=== PATIENT | male | born 1965 | race Caucasian/White ===

== ENCOUNTER 2018-07-13 23:52 | Inpatient (IN) | payer MEDICAID ==
--- NOTE | 2018-07-14 00:11 | ED Physician Chart ---
ED Chief Complaint/HPI - Patient Information Date Seen:: 07/14/18 Time Seen:: 23:50 Chief Complaint:: shortness of breath History of Present Illness:: Patient's been short of breath for 2 weeks gradually increasing in severity. He was diaphoretic 2 nights ago and thinks he had a fever. He has a cough with minimal sputum production. He gets pleuritic chest pain only when he is exposed to cigarette smoke. 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) Review:: Nurse's Note Reviewed ED Review of Systems - Review of Systems General/Constitutional: Fever Skin: Skin lesions Head: No headache Eyes: No loss of vision ENT: No earache Neck: No neck pain Cardio Vascular: other (pleuritic chest pain) Pulmonary: SOB, Cough GI: No nausea, No vomiting, No diarrhea G/U: No dysuria Musculoskeletal: No bone or joint pain Endocrine: No polyuria, No polydipsia Psychiatric: No prior psych history Hematopoietic: No bruising, No lymphadenopathy Allergic/Immuno: No urticaria Neurological: No syncope ED Past Medical History - Past Medical History Past Medical History: HTN Family History: None Social History: Non Smoker, Other Employment:: No current alcohol consumption Surgical History: None Psychiatricy History: None Family Medical History - Family Member Mother History Unknown: Yes ED Physical Exam - Physical Examination General/Constitutional: Awake, Well-developed, well-nourished, Alert Other Gen/Cons comments:: Moderate respiratory distress Head: Atraumatic Eyes: Lids, conjuctiva normal Skin: Nl inspection, No rash ENMT: External ears, nose nl, Oropharynx nl Neck: No nuchal rigidity Respiratory: Clear to Auscultation, No Wheeze/Rhonchi/Rales Other Respiratory comments:: tachypneic Other Cardio Vascular comments:: Irregular rapid rhythm GI: No tenderness/rebounding/guarding Other GI comments:: Abdomen protuberant Other Extremities comments:: 4 lower extremity edema Neuro/Psych: No focal deficits ED Labs/Radiology/EKG Results - Lab Results Results: Laboratory Results WBC 22.5 Th/cmm (4.8-10.8) H* 07/14/18 00:20 RBC 4.84 Mil/cmm (4.30-5.70) 07/14/18 00:20 Hgb 12.2 gm/dL (12-16) 07/14/18 00:20 Hct 38.2 % (41.0-60) L 07/14/18 00:20 MCV 79.0 fl (80-99) L 07/14/18 00:20 MCH 25.2 pg (26.0-30.0) L 07/14/18 00:20 MCHC Differential 31.9 pg (28.0-36.0) 07/14/18 00:20 RDW 16.0 % (11.5-20.0) 07/14/18 00:20 Plt Count 511 Th/cmm (150-400) H 07/14/18 00:20 MPV 7.8 fl 07/14/18 00:20 Add Manual Diff YES 07/14/18 00:20 Band Neutrophils % 0 % (0-10) 07/14/18 00:20 Neutrophils (Manual) 90 % (40-80) H 07/14/18 00:20 Lymphocytes 4 % (20-50) L 07/14/18 00:20 Monocytes 5 % (2-10) 07/14/18 00:20 Eosinophils 1 % (0-5) 07/14/18 00:20 Basophils 0 % (0-3) 07/14/18 00:20 Sodium 137 mEq/L (136-145) 07/14/18 00:20 Potassium 3.8 mEq/L (3.5-5.1) 07/14/18 00:20 Chloride 105 mEq/L (98-107) 07/14/18 00:20 Carbon Dioxide 17.6 mEq/L (21.0-31.0) L 07/14/18 00:20 Anion Gap 18.2 (7.0-16.0) H 07/14/18 00:20 BUN 31 mg/dL (7-25) H 07/14/18 00:20 Creatinine 1.5 mg/dL (0.7-1.3) H 07/14/18 00:20 Est GFR ( Amer) > 60.0 ml/min (>90) 07/14/18 00:20 Est GFR (Non-Af Amer) 52.0 ml/min 07/14/18 00:20 BUN/Creatinine Ratio 20.7 07/14/18 00:20 Glucose 112 mg/dL (70-105) H 07/14/18 00:20 Whole Bld Lactic Acid 2.94 mmol/L (0.60-1.99) H* 07/14/18 00:20 Calcium 8.3 mg/dL (8.6-10.3) L 07/14/18 00:20 Total Bilirubin 0.8 mg/dL (0.3-1.0) 07/14/18 00:20 AST 53 U/L (13-39) H 07/14/18 00:20 ALT 62 U/L (7-52) H 07/14/18 00:20 Alkaline Phosphatase 92 U/L (34-104) 07/14/18 00:20 Troponin I 0.17 ng/mL (0.01-0.05) H* 07/14/18 00:20 B-Natriuretic Peptide 726.0 pg/mL (5.0-100.0) H 07/14/18 00:20 Total Protein 6.4 gm/dL (6.0-8.3) 07/14/18 00:20 Albumin 3.5 gm/dL (4.2-5.5) L 07/14/18 00:20 Globulin 2.9 gm/dL 07/14/18 00:20 Albumin/Globulin Ratio 1.2 (1.0-1.8) 07/14/18 00:20 - Radiology Results Results: Chest x-ray shows cardiomegaly and pulmonary congestion. - EKG Interpretations Rate & Rhythm: atrial fibrillation with a rate of 180 [place]: left axis deviation Comments:: Anterior septal infarct age uncertain. ED Assessment - Assessment General Assessment: At 0144 patient's heart rate was about 150. Patient has congestive heart failure with atrial fibrillation and rapid ventricular response. I spoke to Temi. Patient be admitted to ICU. Patient has a troponin of 0.17 which may be the result of some ischemia to the heart from his extremely rapid heart rate. ED Septic Shock - . Is Septic Shock (SBP<90, OR Lactate>4 mmol\L) present?: No ED Reassessment (Disposition) - Reassessment Reassessment Condition:: Improved - Diagnosis Diagnosis:: Atrial fibrillation with rapid ventricular response; congestive heart failure; pulmonary edema; severe peripheral edema - Patient Disposition Admitted to:: ICU Admitting Medical Physician:: Boby Scruggs
[2018-07-14] MEDS ORDERED: Diltiazem 5 mg/mL 5mL Vial IVP STA ×2 (00:19→01:04)
[2018-07-14 00:30] LABS: HEMATOCRIT 38.2 % (41.0-60); HEMOGLOBIN 12.2 gm/dL (12-16); MEAN CORPUSCULAR HEMOGLOBIN 25.2 pg (26.0-30.0); MEAN CORPUSCULAR HGB CONC 31.9 pg (28.0-36.0); MEAN PLATELET VOLUME 7.8 fl; PLATELET COUNT 511 Th/cmm (150-400); RED BLOOD COUNT 4.84 Mil/cmm (4.30-5.70)
[2018-07-14] MEDS ORDERED: Diltiazem 5 mg/mL 5mL Vial IVP ONE ×2 (00:31→01:07)
[2018-07-14 00:33] LABS: WHITE BLOOD COUNT 22.5 Th/cmm (4.8-10.8)
[2018-07-14 00:44] LABS: ALB/GLOB RATIO 1.2 (1.0-1.8); ALBUMIN 3.5 gm/dL (4.2-5.5); ALKALINE PHOSPHATASE 92 U/L (34-104); ANION GAP 18.2 (7.0-16.0); BILIRUBIN,TOTAL 0.8 mg/dL (0.3-1.0); BUN - UREA NITROGEN 31 mg/dL (7-25); CALCIUM SERUM 8.3 mg/dL (8.6-10.3); CARBON DIOXIDE 17.6 mEq/L (21.0-31.0); CHLORIDE 105 mEq/L (98-107); CREATININE - SERUM 1.5 mg/dL (0.7-1.3); GFR AFRICAN-AMERICAN > 60.0 ml/min (>90); GLUCOSE 112 mg/dL (70-105); POTASSIUM SERUM 3.8 mEq/L (3.5-5.1); SGOT 53 U/L (13-39); SGPT/ALT 62 U/L (7-52); SODIUM SERUM 137 mEq/L (136-145); TOTAL PROTEIN,SERUM 6.4 gm/dL (6.0-8.3)
[2018-07-14 01:04] LABS: BAND NEUTROPHILE 0 % (0-10); BASOPHIL 0 % (0-3); EOSINOPHIL 1 % (0-5); LYMPHOCYTE 4 % (20-50); MONOCYTE 5 % (2-10); NEUTROPHILS 90 % (40-80)
[2018-07-14] MEDS ORDERED: Diltiazem 5 mg/mL 25mL Vial IV ONE (02:43)
[2018-07-14] MEDS ORDERED: Diltiazem 5 mg/mL 5mL Vial IVP PRN (03:56)
[2018-07-14] MEDS ORDERED: guaiFENesin 200 MG/10 ML UDC PO PRN (03:56)
[2018-07-14] MEDS ORDERED: Sodium Chloride 0.9% 1,000 ML IV SCH (03:56)
[2018-07-14] MEDS: Ipratropium Neb 0.5 mg/2.5 mL UD IH SCH ×2 (07:44→10:53)
[2018-07-14] MEDS ORDERED: Ipratropium Neb 0.5 mg/2.5 mL UD HHN ONE ×2 (07:44→10:54)
--- NOTE | 2018-07-14 09:03 | Diagnostic Imaging Report ---
Exam: Portable chest x-ray HISTORY: Shortness of breath Findings: Portable upright examination of chest at 0030 hours reviewed, no prior studies available comparison. The study demonstrates cardiomegaly superimposed congestive heart failure. There is evidence for right lower lobe infiltrate and effusion. Left costophrenic angles is not seen. Bony thorax intact. IMPRESSION: Cardiomegaly congestive heart failure Right lobe pneumonia and effusion. Follow-up exam is recommended.
[2018-07-14] MEDS ORDERED: Morphine Sulfate 2 mg/mL 1mL Syr IVP PRN (09:52)
[2018-07-14] MEDS ORDERED: methylPREDNISolone SS 40 mg Vial IVP SCH (10:00)
[2018-07-14] MEDS ORDERED: Morphine Sulfate 2 mg/mL 1mL Syr ONE (10:03)
[2018-07-14 10:04] LABS: CHOLESTEROL 61 mg/dL (<200); HDL -HIGH DENSITY LIPOPROTEIN 22 mg/dL (23-92); TRIGLYCERIDES 48 mg/dL (<150)
[2018-07-14] MEDS ORDERED: Enoxaparin 40 mg/0.4 mL 0.4mL Syr SUBQ ONE (10:07)
[2018-07-14] MEDS ORDERED: methylPREDNISolone SS 40 mg Vial ONE (10:07)
[2018-07-14] MEDS ORDERED: Piperacillin Sodium/Tazobact 3.375 gm Vial IV ONE (10:08)
--- NOTE | 2018-07-14 10:13 | History & Physical ---
ADMIT DATE: 07/14/2018 DICTATED FOR: Dr. Boby Scruggs. CHIEF COMPLAINT: Shortness of breath and bilateral lower extremity edema. HISTORY OF PRESENT ILLNESS: This is a 52-year-old male, who has a 2-week history of shortness of breath associated with bilateral lower extremity worsening edema associated with open wounds. The patient also states that his shortness of breath was so bad that his chest started to hurt. In the ER, the patient was noted with elevated lactic acid, sepsis protocol was initiated. Also, in the ER, the patient had an EKG and it showed AFib with rapid ventricular response at 181. The patient was started on Cardizem drip in the ER. Upon examining the patient in the ER, the patient is awake, alert, short of breath, complains of off and on chest pain. PAST MEDICAL HISTORY: Hypertension. FAMILY HISTORY: Noncontributory. SOCIAL HISTORY: The patient denies any alcohol, illicit drug usage or any tobacco smoking. SURGICAL HISTORY: None per patient. HOME MEDICATIONS: See medication list. REVIEW OF SYSTEMS: GENERAL: The patient complains of weakness. CARDIOVASCULAR: Complains of chest pain. RESPIRATORY: Complains of shortness of breath and dry cough. GASTROINTESTINAL: Denies any nausea, vomiting, abdominal pain. GENITOURINARY: Denies any dysuria. MUSCULOSKELETAL: Denies any joint pain. SKIN: The patient complains of open wounds. All other systems are reviewed and are negative. PHYSICAL EXAMINATION: GENERAL: The patient is morbidly obese, awake, alert, in mild distress. VITAL SIGNS: Temperature 100.3, heart rate of 137, blood pressure 183/107, respirations 20, O2 95%. HEAD: Normocephalic, atraumatic. NECK: Supple. No mass. LUNGS: Rales with rhonchi bilaterally. HEART: No murmurs. No gallops. SKIN: The patient's bilateral lower extremity noted with redness and +4 pitting edema with fluid seeping, also noted with multiple open ulcers. ABDOMEN: Soft, nontender, nondistended. LABORATORY DATA: WBC 22.5, H and H 38.2 and 79.0, platelet of 511. Sodium 137, potassium 3.8, chloride 105, BUN 31, creatinine 1.5, whole lactic acid of 2.01. Troponin 0.17. Albumin at 3.5. DIAGNOSTICS: The patient had a chest x-ray done, impression is right lobe pneumonia and effusion, cardiomegaly, CHF. ASSESSMENT: Bilateral lower extremity edema; sepsis secondary from above; right lower lobe pneumonia; new onset congestive heart failure; acute renal insufficiency; morbid obese; elevated troponin; acute chest pain, rule out acute coronary syndrome; moderate protein-calorie malnutrition; hypertension; atrial fibrillation with rapid ventricular response. PLAN: The patient to be admitted to the ICU unit. We will get cardiology and superintendent nonselling as a consult. We will get a bilateral lower extremity ultrasound done. We will send wound for cultures. We will also consult wound care. We will treat the patient with IV vancomycin and Zosyn. We will do DVT prophylaxis as well as GI. We will start the patient on Lasix 40 mg IV push b.i.d. with supplementation of potassium 20 mEq b.i.d., respiratory treatments. We will keep the patient on cardiac diet. We will monitor the patient's I's and O's daily. We will also do daily weights as well. We will get followup labs for tomorrow morning. We will continue to follow this patient. JOB# [id number]
[2018-07-14] MEDS: Enoxaparin 40 mg/0.4 mL 0.4mL Syr SUBQ SCH ×2 (10:16→20:30)
[2018-07-14] MEDS ORDERED: Potassium Chloride 20 mEq ER Tab PO ONE (10:26)
[2018-07-14] MEDS ORDERED: Ipratropium Neb 0.5 mg/2.5 mL UD HHN SCH (10:56)
[2018-07-14] MEDS ORDERED: Mag Sulfate 2gm/50mL Premix 2 GM/50 ML BAG IV ONE (14:17)
--- NOTE | 2018-07-14 14:34 | General Progress Note ---
Subjective - Review of Systems Service Date: 07/14/18 Subjective: Patient has less shortness of breath still complaining of swelling both lower extremities and open wound on the right leg Objective - Results Result Diagrams: 07/14/18 00:20 07/14/18 00:20 Recent Labs: Laboratory Last Values WBC 22.5 Th/cmm (4.8-10.8) H* 07/14/18 00:20 RBC 4.84 Mil/cmm (4.30-5.70) 07/14/18 00:20 Hgb 12.2 gm/dL (12-16) 07/14/18 00:20 Hct 38.2 % (41.0-60) L 07/14/18 00:20 MCV 79.0 fl (80-99) L 07/14/18 00:20 MCH 25.2 pg (26.0-30.0) L 07/14/18 00:20 MCHC Differential 31.9 pg (28.0-36.0) 07/14/18 00:20 RDW 16.0 % (11.5-20.0) 07/14/18 00:20 Plt Count 511 Th/cmm (150-400) H 07/14/18 00:20 MPV 7.8 fl 07/14/18 00:20 Add Manual Diff YES 07/14/18 00:20 Band Neutrophils % 0 % (0-10) 07/14/18 00:20 Neutrophils (Manual) 90 % (40-80) H 07/14/18 00:20 Lymphocytes 4 % (20-50) L 07/14/18 00:20 Monocytes 5 % (2-10) 07/14/18 00:20 Eosinophils 1 % (0-5) 07/14/18 00:20 Basophils 0 % (0-3) 07/14/18 00:20 Sodium 137 mEq/L (136-145) 07/14/18 00:20 Potassium 3.8 mEq/L (3.5-5.1) 07/14/18 00:20 Chloride 105 mEq/L (98-107) 07/14/18 00:20 Carbon Dioxide 17.6 mEq/L (21.0-31.0) L 07/14/18 00:20 Anion Gap 18.2 (7.0-16.0) H 07/14/18 00:20 BUN 31 mg/dL (7-25) H 07/14/18 00:20 Creatinine 1.5 mg/dL (0.7-1.3) H 07/14/18 00:20 Est GFR ( Amer) > 60.0 ml/min (>90) 07/14/18 00:20 Est GFR (Non-Af Amer) 52.0 ml/min 07/14/18 00:20 BUN/Creatinine Ratio 20.7 07/14/18 00:20 Glucose 112 mg/dL (70-105) H 07/14/18 00:20 Whole Bld Lactic Acid 2.01 mmol/L (0.60-1.99) H* 07/14/18 03:30 Calcium 8.3 mg/dL (8.6-10.3) L 07/14/18 00:20 Total Bilirubin 0.8 mg/dL (0.3-1.0) 07/14/18 00:20 AST 53 U/L (13-39) H 07/14/18 00:20 ALT 62 U/L (7-52) H 07/14/18 00:20 Alkaline Phosphatase 92 U/L (34-104) 07/14/18 00:20 Troponin I 0.17 ng/mL (0.01-0.05) H* 07/14/18 00:20 B-Natriuretic Peptide 726.0 pg/mL (5.0-100.0) H 07/14/18 00:20 Total Protein 6.4 gm/dL (6.0-8.3) 07/14/18 00:20 Albumin 3.5 gm/dL (4.2-5.5) L 07/14/18 00:20 Globulin 2.9 gm/dL 07/14/18 00:20 Albumin/Globulin Ratio 1.2 (1.0-1.8) 07/14/18 00:20 Triglycerides 48 mg/dL (<150) 07/14/18 00:20 Cholesterol 61 mg/dL (<200) 07/14/18 00:20 LDL Cholesterol Direct 36 mg/dL (75-193) L 07/14/18 00:20 HDL Cholesterol 22 mg/dL (23-92) L 07/14/18 00:20 - Physical Exam Vitals and I&O: Vital Signs Temp 98.9 F 07/14/18 12:48 Pulse 113 07/14/18 12:48 Resp 20 07/14/18 12:48 BP 146/80 07/14/18 12:48 Pulse Ox 96 07/14/18 12:48 Intake & Output 07/13/18 07/14/18 07/14/18 18:59 06:59 18:59 Intake Total 250 Output Total 1575 Balance -1325 Weight (lbs) 181.437 kg 181.437 kg Intake: Oral 250 Tube Feeding 0 TPN/PPN 0 Blood Product 0 Lipid 0 Albumin 0 Other 0 Output: Gastric Drainage 0 Urine 1575 Stool 0 Urine/Stool Mix 0 Emesis 0 Hemodialysis 0 Other 0 Other: # Voids 4 # Bowel Movements 0 Weight Source Patient stated Patient stated Active Medications: Current Medications Acetaminophen (Tylenol) 650 mg PO Q4HR PRN PRN Reason: Pain Or Fever above 101 Stop: 09/12/18 03:55 Carvedilol (Coreg) 25 mg PO BID [facility] Stop: 09/12/18 16:59 Diltiazem HCl (Cardizem) 20 mg IVP Q4H PRN PRN Reason: HR Greater than 130 per min Stop: 09/12/18 03:55 Diltiazem HCl (Cardizem) 60 mg PO Q6HR [facility] Stop: 09/12/18 17:59 Enoxaparin Sodium (Lovenox) 40 mg SUBQ Q12HR [facility] Stop: 09/12/18 08:59 Last Admin: 07/14/18 10:16 Dose: 40 mg Furosemide (Lasix) 40 mg IVP BID [facility] Stop: 09/12/18 08:59 Guaifenesin (Robitussin) 100 mg PO Q4H PRN PRN Reason: Cough or Congestion Stop: 09/12/18 03:55 Diltiazem HCl 125 mg/ Dextrose 125 mls @ 10 mls/hr IV TITR [facility]; Protocol Stop: 09/12/18 02:44 Last Admin: 07/14/18 02:49 Dose: 10 mg/hr, 10 mls/hr Piperacillin Sod/Tazobactam (Sod 3.375 gm/ Sodium Chloride) 50 mls @ 100 mls/ hr IV Q6HR [facility] Stop: 09/12/18 17:59 Vancomycin HCl 2 gm/ Sodium (Chloride) 500 mls @ 250 mls/hr IV Q12HR@0800,2000 [facility] Stop: 09/12/18 19:59 Ipratropium [place] (Atrovent Neb 0.5mg/2.5ml) 0.5 mg HHN QIDRT [facility] Stop: 09/12/18 10:55 Methylprednisolone Sodium Succinate (Solu-Medrol) 40 mg IVP Q8H [facility] Stop: 09/12/18 09:59 Last Admin: 07/14/18 10:13 Dose: 40 mg Miscellaneous (Vancomycin Iv Per Pharmacy) 1 ea MC PRN [facility] Stop: 09/12/18 03:55 Morphine Sulfate (Morphine) 2 mg IVP Q6H PRN PRN Reason: Severe Pain Stop: 09/12/18 09:51 Ondansetron HCl (Zofran) 4 mg IV Q8H PRN PRN Reason: Nausea / Vomiting Stop: 09/12/18 03:55 Pantoprazole Sodium (Protonix) 40 mg IVP DAILY [facility] Stop: 09/12/18 10:30 Last Admin: 07/14/18 10:32 Dose: 40 mg Potassium Chloride (Klor-Con) 20 meq PO BID [facility] Stop: 09/12/18 10:28 Zolpidem Tartrate (Ambien) 10 mg PO HS PRN PRN Reason: Insomnia Stop: 09/12/18 03:55 General: Alert, Mild distress HEENT: Mucous membr. moist/pink Neck: Supple, JVD, +2 carotid pulse wo bruit (10 cm upper sternal angle) Cardiovascular: Regular rate, Systolic murmurs, Other (uncontrolled atrial fibrillation) Abdomen: Bowel sounds, Soft, Obese Neurological: Normal gait, Strength at 5/5 X4 ext, Normal tone, Cranial nerves 3 -12 NL, Reflexes 2+ Skin: Breakdown (both legs) Assessment/Plan - Assessment Assessment: Right lower lobe pneumonia Congestive heart failure diastolic dysfunction and acute Cellulitis right leg Pleural effusion C kidney disease stage III Lactic acidosis Uncontrolled atrial fibrillation Hypertension Protein calorie malnutrition Morbid obesity Lactic acidosis - Plan Plan: Start IV Lasix IV antibiotics fluid restriction echocardiogram
[2018-07-14] MEDS: Ipratropium Neb 0.5 mg/2.5 mL UD HHN SCH ×2 (15:30→18:56)
[2018-07-14] MEDS ORDERED: Pneumococcal Vaccine 0.5 mL Vial IM ONE (15:39)
[2018-07-14] MEDS: Potassium Chloride 20 mEq ER Tab PO SCH ×2 (16:05→17:27)
[2018-07-14] MEDS ORDERED: Potassium Chloride 20 mEq ER Tab PO SCH (17:00)
[2018-07-14] MEDS: Diltiazem 30 mg Tab PO SCH (17:27)
[2018-07-14] MEDS: methylPREDNISolone SS 40 mg Vial IVP SCH (17:27)
[2018-07-14] MEDS ORDERED: Albumin 25% 12.5gm/50mL 12.5 GM/50 ML BTL IV ONE (23:30)
[2018-07-15] MEDS: Diltiazem 30 mg Tab PO SCH ×3 (00:33→13:01)
--- NOTE | 2018-07-15 02:46 | Consultation ---
DATE OF CONSULTATION: 07/14/[address] Scruggs. HISTORY AND PHYSICAL: This is a 52-year-old morbidly obese male patient, who has been complaining of swelling in both lower extremities, which gradually increased over a period of 2 weeks. According to the patient, he was admitted 6 months ago at [facility] for similar problem. The patient was discharged. Following this, the patient has a poor compliance with medication, diet and hence the swelling resumed and the patient came to the Emergency Room with patient complaining of shortness of breath. The patient also had a blister in the right leg, which he broke. Following this, there is redness in the right lower extremity. The patient's chest x-ray showed pneumonia and the patient had atrial fibrillation with rapid ventricular response. PAST MEDICAL HISTORY: Congestive heart failure, poor compliance, hypertension, atrial fibrillation, morbid obesity. FAMILY HISTORY: Unremarkable. SOCIAL HISTORY: No history of smoking, alcohol abuse according to the patient. ALLERGIES: None. PHYSICAL EXAMINATION: VITAL SIGNS: Blood pressure 130/80; pulse 180, irregular; respirations 28. HEAD: Normocephalic. No lumps or bumps. EYES: Pupils equal, reactive to light. Fundi show AV nicking, sclerae white, conjunctivae pink. NECK: Carotid 2+. Normal upstroke. JVD 10 cm above sternal angle. Thyroid not palpable. Lymph nodes not palpable. CHEST: Shows increased AP diameter. No kyphosis or scoliosis. LUNGS: Bilateral rales. Decreased breath sounds in both the bases. HEART: PMI sixth intercostal space with lateral to midclavicular line. S1 irregular. S2, S3, S4. Soft systolic murmur. ABDOMEN: Soft, hepatojugular reflux positive. Morbid obesity. NEUROLOGIC: Unremarkable. EXTREMITIES: Bilateral pedal edema 3+ with open wound in the right lower extremity with cellulitis. Peripheral pulses difficult to palpate. CLINICAL IMPRESSION: Right lower lobe pneumonia, pleural effusion, congestive heart failure, diastolic dysfunction, acute cellulitis of the right leg, chronic kidney disease stage 3, lactic acidosis, atrial fibrillation with rapid ventricular response, hypertension, protein-calorie malnutrition, morbid obesity. PLAN: The patient to continue present medication, Lasix, IV antibiotics. Echocardiogram. Monitor the patient closely on telemetry bed. Also give Cardizem IV push and get echocardiogram. JOB# [id number]
[2018-07-15] MEDS: methylPREDNISolone SS 40 mg Vial IVP SCH ×2 (04:06→15:33)
[2018-07-15 06:59] LABS: HEMATOCRIT 34.2 % (41.0-60); HEMOGLOBIN 10.9 gm/dL (12-16); MEAN CELL VOLUME 78.6 fl (80-99); MEAN CORPUSCULAR HEMOGLOBIN 25.1 pg (26.0-30.0); MEAN PLATELET VOLUME 7.8 fl; PLATELET COUNT 309 Th/cmm (150-400); RED BLOOD COUNT 4.35 Mil/cmm (4.30-5.70); RED CELL DISTRIBUTION WIDTH 15.4 % (11.5-20.0)
[2018-07-15 07:12] LABS: WHITE BLOOD COUNT 16.9 Th/cmm (4.8-10.8)
[2018-07-15] MEDS: Ipratropium Neb 0.5 mg/2.5 mL UD HHN SCH ×4 (07:20→18:28)
[2018-07-15 07:22] LABS: ANION GAP 15.1 (7.0-16.0); CALCIUM SERUM 8.2 mg/dL (8.6-10.3); CARBON DIOXIDE 19.1 mEq/L (21.0-31.0); CREATININE - SERUM 1.8 mg/dL (0.7-1.3); GFR NON AFRICAN-AMERICAN 42.2 ml/min; MAGNESIUM 2.2 mg/dL (1.9-2.7); POTASSIUM SERUM 4.2 mEq/L (3.5-5.1)
--- NOTE | 2018-07-15 07:24 | Consultation ---
DATE OF CONSULTATION: 07/14/2018 REFERRING PHYSICIAN: Dr. Scruggs Thank you very much for this consultation. HISTORY OF PRESENT ILLNESS: This is a 52-year-old male with history of CHF, presents with increased swelling in lower extremities. 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 He was treated recently and improved with fluids. Again, he was admitted for treatment and management with Lasix, started on regular Lasix drainage. The patient denies any history of lung problems. He is a nonsmoker, denies alcohol drinking. REVIEW OF SYSTEMS: GENERAL: Some weakness and fatigue. CARDIOVASCULAR: No chest pain or palpitation. RESPIRATORY: Shortness of breath. GASTROINTESTINAL: No nausea, no vomiting. PHYSICAL EXAMINATION: GENERAL: He is awake, alert, not in acute distress. VITAL SIGNS: Temperature 98.9, pulse 102, respirations 20, blood pressure 146/80, saturation 96%. HEENT: Atraumatic and normocephalic. Pupils are equal and reactive to light and accommodation. Ears, nose and throat are normal. NECK: Supple, no JVD. CHEST: There are decreased breath sounds at bases, fair air entry. HEART: Regular rate and rhythm. ABDOMEN: Soft. EXTREMITIES: Lower extremities 3+ edema with erythema of the lower extremities. LABORATORY AND DIAGNOSTIC DATA: WBC 22.5, hematocrit 38.2, platelets is 511. , potassium 3.8, BUN is 31, creatinine 1.5. IMPRESSION: This is a 52-year-old male with: 1. Congestive heart failure exacerbation 2. Lower extremities edema. 3. Lower extremity cellulitis. 4. Possible obstructive sleep apnea syndrome. PLAN: 1. Continue nebulizer treatment. 2. Decreased steroids. 3. Light diuresis. 4. Renal evaluation at one point. 5. Antibiotics. Thank you very much for this consultation. I will follow the patient with you. JOB# [id number] JAISON
[2018-07-15] MEDS: Enoxaparin 40 mg/0.4 mL 0.4mL Syr SUBQ SCH ×2 (08:39→21:10)
[2018-07-15] MEDS: Potassium Chloride 20 mEq ER Tab PO SCH ×2 (08:41→16:51)
--- NOTE | 2018-07-15 09:39 | Diagnostic Imaging Report ---
Portable chest x-ray HISTORY: Shortness of breath Compared with the prior exam of July 14, 2018, persistent marked cardiomegaly. There is evidence of a small right pleural effusion. A degree of congestive heart failure cannot be excluded. A small crescent shaped air density is noted below the right hemidiaphragm. This may represent partial visualization of adjacent bowel. Free intraperitoneal air cannot be definitely excluded. Clinical correlation is needed. An abdominal radiographic series or CT scan would provide additional assessment if needed. IMPRESSION: 1. Small crescent shaped air density projecting below the right hemidiaphragm. This may represent partial visualization of bowel. However, free intraperitoneal air cannot be deftly excluded. Clinical correlation is needed. An abdominal radiographic series or CT scan would provide additional assessment if needed. 2. Persistent cardiomegaly with a small right pleural effusion changes consistent with a degree of congestive heart failure. Abnormal findings were communicated to the radiology Department (Jimenez) 07/15/2018 (9:40 AM)
--- NOTE | 2018-07-15 09:58 | Diagnostic Imaging Report ---
Bilateral lower extremity Doppler venous ultrasound exam HISTORY: Pain, swelling Sonographic sector images obtained through the deep venous systems of both legs. Associated Doppler data was obtained. The exam the right leg demonstrates patency of the common femoral, superficial femoral, popliteal and posterior tibial veins. No thrombus. Normal compressibility and augmentation responses. The left leg demonstrates patency of the common femoral along with the proximal and mid portions of the superficial femoral vein. The distal portion of the left superficial femoral vein cannot be well visualized. There is patency of the left popliteal and posterior tibial veins. Normal compressibility and augmentation responses within the visualized veins. IMPRESSION: 1. Nonvisualization of the distal portion of the left superficial femoral vein. 2. Patency of the remainder of the deep venous systems of both legs.
[2018-07-15 10:35] LABS: BAND NEUTROPHILE 7 % (0-10); BASOPHIL 0 % (0-3); EOSINOPHIL 0 % (0-5); LYMPHOCYTE 3 % (20-50); MONOCYTE 3 % (2-10); NEUTROPHILS 87 % (40-80)
--- NOTE | 2018-07-15 16:12 | Internal Medicine Prog Note ---
Internal Medicine Subjective - Subjective Service Date: 07/15/18 (patient seen and examined. Awake, alert, frustrated c/o bilateral leg pain. bilateral lower extremity fluid seeping. explained to patient current plan of care and treatment understands and verbalized ) Patient seen and examined:: with staff Patient is:: awake, verbal Patient Complaints of:: other (ble pain) Per staff patient has:: tolerating meds Internal Medicine Objective - Results Result Diagrams: 07/15/18 06:35 07/15/18 06:35 Recent Labs: Laboratory Last Values WBC 16.9 Th/cmm (4.8-10.8) H 07/15/18 06:35 RBC 4.35 Mil/cmm (4.30-5.70) 07/15/18 06:35 Hgb 10.9 gm/dL (12-16) L 07/15/18 06:35 Hct 34.2 % (41.0-60) L 07/15/18 06:35 MCV 78.6 fl (80-99) L 07/15/18 06:35 MCH 25.1 pg (26.0-30.0) L 07/15/18 06:35 MCHC Differential 32.0 pg (28.0-36.0) 07/15/18 06:35 RDW 15.4 % (11.5-20.0) 07/15/18 06:35 Plt Count 309 Th/cmm (150-400) 07/15/18 06:35 MPV 7.8 fl 07/15/18 06:35 Add Manual Diff YES 07/15/18 06:35 Band Neutrophils % 7 % (0-10) 07/15/18 06:35 Neutrophils (Manual) 87 % (40-80) H 07/15/18 06:35 Lymphocytes 3 % (20-50) L 07/15/18 06:35 Monocytes 3 % (2-10) 07/15/18 06:35 Eosinophils 0 % (0-5) 07/15/18 06:35 Basophils 0 % (0-3) 07/15/18 06:35 Sodium 136 mEq/L (136-145) 07/15/18 06:35 Potassium 4.2 mEq/L (3.5-5.1) 07/15/18 06:35 Chloride 106 mEq/L (98-107) 07/15/18 06:35 Carbon Dioxide 19.1 mEq/L (21.0-31.0) L 07/15/18 06:35 Anion Gap 15.1 (7.0-16.0) 07/15/18 06:35 BUN 36 mg/dL (7-25) H 07/15/18 06:35 Creatinine 1.8 mg/dL (0.7-1.3) H 07/15/18 06:35 Est GFR ( Amer) 51.0 ml/min (>90) 07/15/18 06:35 Est GFR (Non-Af Amer) 42.2 ml/min 07/15/18 06:35 BUN/Creatinine Ratio 20.0 07/15/18 06:35 Glucose 150 mg/dL (70-105) H 07/15/18 06:35 Whole Bld Lactic Acid 2.01 mmol/L (0.60-1.99) H* 07/14/18 03:30 Calcium 8.2 mg/dL (8.6-10.3) L 07/15/18 06:35 Magnesium 2.2 mg/dL (1.9-2.7) 07/15/18 06:35 Total Bilirubin 0.8 mg/dL (0.3-1.0) 07/14/18 00:20 AST 53 U/L (13-39) H 07/14/18 00:20 ALT 62 U/L (7-52) H 07/14/18 00:20 Alkaline Phosphatase 92 U/L (34-104) 07/14/18 00:20 Troponin I 0.12 ng/mL (0.01-0.05) H* D 07/15/18 06:35 B-Natriuretic Peptide 726.0 pg/mL (5.0-100.0) H 07/14/18 00:20 Total Protein 6.4 gm/dL (6.0-8.3) 07/14/18 00:20 Albumin 3.5 gm/dL (4.2-5.5) L 07/14/18 00:20 Globulin 2.9 gm/dL 07/14/18 00:20 Albumin/Globulin Ratio 1.2 (1.0-1.8) 07/14/18 00:20 Triglycerides 48 mg/dL (<150) 07/14/18 00:20 Cholesterol 61 mg/dL (<200) 07/14/18 00:20 LDL Cholesterol Direct 36 mg/dL (75-193) L 07/14/18 00:20 HDL Cholesterol 22 mg/dL (23-92) L 07/14/18 00:20 - Physical Exam Vitals and I&O: Vital Signs Temp 97.8 F 07/15/18 08:56 Pulse 89 07/15/18 14:58 Resp 22 07/15/18 14:58 BP 126/74 07/15/18 08:56 Pulse Ox 97 07/15/18 14:58 Intake & Output 07/14/18 07/15/18 07/15/18 18:59 06:59 18:59 Intake Total 450 1250 Output Total 2175 750 Balance -1725 500 Weight (lbs) 400 lb 400 lb 400 lb Intake: Intake, IV Amount 650 Piperacillin Sodium/ 150 Tazobact 3.375 gm In Sodium Chloride 0.9% 50 ml @ 100 mls/hr IV Q6HR [facility] Rx#:[id number] Vancomycin HCl 2 gm In 500 Sodium Chloride 0.9% 500 ml @ 250 mls/hr IV Q12HR@ 0800,2000 [facility] Rx#: [id number] Oral 450 600 Tube Feeding 0 TPN/PPN 0 Blood Product 0 Lipid 0 Albumin 0 Other 0 Output: Gastric Drainage 0 Urine 2175 750 Stool 0 Urine/Stool Mix 0 Emesis 0 Hemodialysis 0 Other 0 Other: # Voids 4 # Bowel Movements 0 0 Stool Characteristics Formed Formed Weight Source Patient stated Bedscale Bedscale Active Medications: Current Medications Acetaminophen (Tylenol) 650 mg PO Q4HR PRN PRN Reason: Pain Or Fever above 101 Stop: 09/12/18 03:55 Diltiazem HCl (Cardizem) 20 mg IVP Q4H PRN PRN Reason: HR Greater than 130 per min Stop: 09/12/18 03:55 Last Admin: 07/14/18 16:22 Dose: 20 mg Diltiazem HCl (Cardizem) 60 mg PO Q6HR [facility] Stop: 09/12/18 17:59 Last Admin: 07/15/18 13:01 Dose: 60 mg Enoxaparin Sodium (Lovenox) 40 mg SUBQ Q12HR [facility] Stop: 09/12/18 08:59 Last Admin: 07/15/18 08:39 Dose: 40 mg Furosemide (Lasix) 40 mg IVP BID [facility] Stop: 09/13/18 16:59 Guaifenesin (Robitussin) 100 mg PO Q4H PRN PRN Reason: Cough or Congestion Stop: 09/12/18 03:55 Diltiazem HCl 125 mg/ Dextrose 125 mls @ 10 mls/hr IV TITR [facility]; Protocol Stop: 09/12/18 02:44 Last Admin: 07/14/18 02:49 Dose: 10 mg/hr, 10 mls/hr Piperacillin Sod/Tazobactam (Sod 3.375 gm/ Sodium Chloride) 50 mls @ 100 mls/ hr IV Q6HR [facility] Stop: 09/12/18 17:59 Last Admin: 07/15/18 13:02 Dose: 100 mls/hr Vancomycin HCl 2 gm/ Sodium (Chloride) 500 mls @ 250 mls/hr IV Q12HR@0800,2000 [facility] Stop: 09/12/18 19:59 Last Admin: 07/15/18 08:04 Dose: 250 mls/hr Ibuprofen (Motrin) 600 mg PO TID [facility] Stop: 09/13/18 20:59 Ipratropium [place] (Atrovent Neb 0.5mg/2.5ml) 0.5 mg HHN QIDRT [facility] Stop: 09/12/18 14:59 Last Admin: 07/15/18 14:58 Dose: 0.5 mg Methylprednisolone Sodium Succinate (Solu-Medrol) 20 mg IVP Q12H [facility] Stop: 09/12/18 16:14 Last Admin: 07/15/18 15:33 Dose: 20 mg Miscellaneous (Vancomycin Iv Per Pharmacy) 1 ea [facility] PRN [facility] Stop: 09/12/18 03:55 Morphine Sulfate (Morphine) 2 mg IVP Q6H PRN PRN Reason: Severe Pain Stop: 09/12/18 09:51 Ondansetron HCl (Zofran) 4 mg IV Q8H PRN PRN Reason: Nausea / Vomiting Stop: 09/12/18 03:55 Pantoprazole Sodium (Protonix) 40 mg IVP DAILY [facility] Stop: 09/12/18 10:30 Last Admin: 07/15/18 08:40 Dose: 40 mg Potassium Chloride (Klor-Con) 20 meq PO BID [facility] Stop: 09/12/18 10:28 Last Admin: 07/15/18 08:41 Dose: 20 meq Tramadol HCl (Ultram) 50 mg PO Q6HR PRN PRN Reason: Pain (Moderate) Stop: 09/12/18 16:33 Last Admin: 07/15/18 15:30 Dose: 50 mg Zolpidem Tartrate (Ambien) 10 mg PO HS PRN PRN Reason: Insomnia Stop: 09/12/18 03:55 General: alert HEENT: NC/AT, PERRLA Neck: Supple Lungs: wheezing, ronchi Cardiovascular: RRR, Normal S1, Normal S2, without murmur Abdomen: soft, non-tender, non-distended, positive bowel sound Extremities: other (multiple open sores) Neurological: alert Internal Medicine Assmt/Plan - Assessment Assessment: Acute urinary tract infection, acute renal failure, morbidly obese, anemia, hypomagnesemia, morbid obesity, hypertension, congestive heart failure, asthma, chronic obstructive pulmonary disease, type 2 diabetes. - Plan Plan: await for wound culture continue iv vanco/zosyn pain mgmt am labs await for 2d echo continue current plan of care
[2018-07-16] MEDS: Diltiazem 30 mg Tab PO SCH ×4 (00:36→18:58)
[2018-07-16 05:08] LABS: EOSINOPHILE ABSOLUTE 0.1 Th/cmm (0.1-0.4); HEMATOCRIT 33.7 % (41.0-60); HEMOGLOBIN 10.9 gm/dL (12-16); LYMPHOCYTE ABSOLUTE 0.6 Th/cmm (1.5-3.0); MEAN CELL VOLUME 78.8 fl (80-99); MEAN CORPUSCULAR HEMOGLOBIN 25.4 pg (26.0-30.0); MEAN CORPUSCULAR HGB CONC 32.3 pg (28.0-36.0); MEAN PLATELET VOLUME 7.7 fl; MONOCYTE ABSOLUTE 0.9 Th/cmm (0.3-1.0); NEUTROPHILE ABSOLUTE 17.5 Th/cmm (1.8-8.0); RED BLOOD COUNT 4.28 Mil/cmm (4.30-5.70); RED CELL DISTRIBUTION WIDTH 15.9 % (11.5-20.0)
[2018-07-16 05:35] LABS: ANION GAP 13.1 (7.0-16.0); CALCIUM SERUM 8.4 mg/dL (8.6-10.3); CARBON DIOXIDE 21.3 mEq/L (21.0-31.0); CREATININE - SERUM 1.9 mg/dL (0.7-1.3); GFR AFRICAN-AMERICAN 47.9 ml/min (>90); GFR NON AFRICAN-AMERICAN 39.6 ml/min; POTASSIUM SERUM 4.4 mEq/L (3.5-5.1)
[2018-07-16] MEDS: methylPREDNISolone SS 40 mg Vial IVP SCH ×2 (05:38→16:04)
[2018-07-16 06:35] LABS: PLATELET COUNT 419 Th/cmm (150-400); WHITE BLOOD COUNT 19.1 Th/cmm (4.8-10.8)
[2018-07-16 06:36] LABS: BAND NEUTROPHILE 0 % (0-10); BASOPHIL 0 % (0-3); LYMPHOCYTE 6 % (20-50); MONOCYTE 4 % (2-10); NEUTROPHILS 90 % (40-80)
[2018-07-16] MEDS: Ipratropium Neb 0.5 mg/2.5 mL UD HHN SCH ×4 (07:18→18:36)
--- NOTE | 2018-07-16 07:22 | Diagnostic Imaging Report ---
Some: Acute abdominal series. HISTORY: Pain. Findings: Multiple views of the abdomen reviewed. The study demonstrates a nonspecific bowel gas pattern. The stomach distended with air. The study is limited due to patient size. There is evidence for right lower lobe pneumonia and effusion. No free air visualized. Bony structures intact. IMPRESSION nonspecific bowel gas pattern, stomach distended with air. No evidence of free air under right diaphragm as was questioned on the previous x-ray examination of chest at 07/15/2018.
[2018-07-16] MEDS: Enoxaparin 40 mg/0.4 mL 0.4mL Syr SUBQ SCH ×2 (08:30→21:18)
--- NOTE | 2018-07-16 08:57 | Diagnostic Imaging Report ---
Carotid ultrasound HISTORY: CHF COMPARISON: None Technique: Longitudinal and transverse sonographic sector images of the carotid arteries were obtained with doppler analysis. FINDINGS: Exam of the right side demonstrates intimal thickening and mild generalized atherosclerotic vascular disease. There is increased velocity of the right mid and distal ICA greatest at the right mid ICA at 150 cm/second. Increased velocity ratio is seen on the right side at 2.77. Exam of the left side demonstrates intimal thickening and mild generalized atherosclerotic vascular disease. No evidence of elevated velocities or velocity ratios. Antegrade vertebral artery flow is demonstrated bilaterally. IMPRESSION: Mild bilateral atherosclerotic vascular disease. There is increased velocity of the right mid and distal ICA. Increased right-sided velocity ratios are also noted. These findings are probably related to technical factors and body habitus. 50-69% vessel narrowing in these regions is considered less likely. Repeat carotid ultrasound would be helpful. Alternatively, CT angiography may also be obtained.
[2018-07-16] MEDS: Potassium Chloride 20 mEq ER Tab PO SCH ×2 (09:19→16:27)
--- NOTE | 2018-07-16 13:07 | General Progress Note ---
Subjective - Review of Systems Service Date: 07/16/18 Subjective: Patient has less shortness of breath still complaining of swelling both lower extremities and open wound on the right leg Patient feels better Objective - Results Result Diagrams: 07/16/18 04:40 07/16/18 04:40 Recent Labs: Laboratory Last Values WBC 19.1 Th/cmm (4.8-10.8) H 07/16/18 04:40 RBC 4.28 Mil/cmm (4.30-5.70) L 07/16/18 04:40 Hgb 10.9 gm/dL (12-16) L 07/16/18 04:40 Hct 33.7 % (41.0-60) L 07/16/18 04:40 MCV 78.8 fl (80-99) L 07/16/18 04:40 MCH 25.4 pg (26.0-30.0) L 07/16/18 04:40 MCHC Differential 32.3 pg (28.0-36.0) 07/16/18 04:40 RDW 15.9 % (11.5-20.0) 07/16/18 04:40 Plt Count 419 Th/cmm (150-400) H D 07/16/18 04:40 MPV 7.7 fl 07/16/18 04:40 Add Manual Diff YES 07/16/18 04:40 Band Neutrophils % 0 % (0-10) 07/16/18 04:40 Neutrophils (Manual) 90 % (40-80) H 07/16/18 04:40 Lymphocytes 6 % (20-50) L 07/16/18 04:40 Monocytes 4 % (2-10) 07/16/18 04:40 Eosinophils 0 % (0-5) 07/15/18 06:35 Basophils 0 % (0-3) 07/16/18 04:40 Sodium 132 mEq/L (136-145) L 07/16/18 04:40 Potassium 4.4 mEq/L (3.5-5.1) 07/16/18 04:40 Chloride 102 mEq/L (98-107) 07/16/18 04:40 Carbon Dioxide 21.3 mEq/L (21.0-31.0) 07/16/18 04:40 Anion Gap 13.1 (7.0-16.0) 07/16/18 04:40 BUN 42 mg/dL (7-25) H 07/16/18 04:40 Creatinine 1.9 mg/dL (0.7-1.3) H 07/16/18 04:40 Est GFR ( Amer) 47.9 ml/min (>90) 07/16/18 04:40 Est GFR (Non-Af Amer) 39.6 ml/min 07/16/18 04:40 BUN/Creatinine Ratio 22.1 07/16/18 04:40 Glucose 151 mg/dL (70-105) H 07/16/18 04:40 Whole Bld Lactic Acid 1.56 mmol/L (0.60-1.99) 07/15/18 15:00 Calcium 8.4 mg/dL (8.6-10.3) L 07/16/18 04:40 Magnesium 2.2 mg/dL (1.9-2.7) 07/15/18 06:35 Total Bilirubin 0.8 mg/dL (0.3-1.0) 07/14/18 00:20 AST 53 U/L (13-39) H 07/14/18 00:20 ALT 62 U/L (7-52) H 07/14/18 00:20 Alkaline Phosphatase 92 U/L (34-104) 07/14/18 00:20 Troponin I 0.12 ng/mL (0.01-0.05) H* D 07/15/18 06:35 B-Natriuretic Peptide 482.0 pg/mL (5.0-100.0) H 07/16/18 04:40 Total Protein 6.4 gm/dL (6.0-8.3) 07/14/18 00:20 Albumin 3.5 gm/dL (4.2-5.5) L 07/14/18 00:20 Globulin 2.9 gm/dL 07/14/18 00:20 Albumin/Globulin Ratio 1.2 (1.0-1.8) 07/14/18 00:20 Triglycerides 48 mg/dL (<150) 07/14/18 00:20 Cholesterol 61 mg/dL (<200) 07/14/18 00:20 LDL Cholesterol Direct 36 mg/dL (75-193) L 07/14/18 00:20 HDL Cholesterol 22 mg/dL (23-92) L 07/14/18 00:20 Vancomycin Trough 15.8 ug/mL (5-10) H 07/15/18 19:00 - Physical Exam Vitals and I&O: Vital Signs Temp 98.4 F 07/16/18 11:52 Pulse 80 07/16/18 11:52 Resp 20 07/16/18 11:52 BP 167/92 07/16/18 11:52 Pulse Ox 100 07/16/18 11:52 Intake & Output 07/15/18 07/16/18 07/16/18 18:59 06:59 18:59 Intake Total 550 1100 Balance 550 1100 Weight (lbs) 181.437 kg 181.256 kg 181.256 kg Intake: Intake, IV Amount 550 600 Piperacillin Sodium/ 50 100 Tazobact 3.375 gm In Sodium Chloride 0.9% 50 ml @ 100 mls/hr IV Q6HR [facility] Rx#:[id number] Vancomycin HCl 2 gm In 500 500 Sodium Chloride 0.9% 500 ml @ 250 mls/hr IV Q12HR@ 0800,2000 [facility] Rx#: [id number] Oral 500 Other: # Voids 3 # Bowel Movements 0 Stool Characteristics Formed Weight Source Bedscale Bedscale Bedscale Active Medications: Current Medications Acetaminophen (Tylenol) 650 mg PO Q4HR PRN PRN Reason: Pain Or Fever above 101 Stop: 09/12/18 03:55 Diltiazem HCl (Cardizem) 20 mg IVP Q4H PRN PRN Reason: HR Greater than 130 per min Stop: 09/12/18 03:55 Last Admin: 07/14/18 16:22 Dose: 20 mg Diltiazem HCl (Cardizem) 60 mg PO Q6HR [facility] Stop: 09/12/18 17:59 Last Admin: 07/16/18 05:45 Dose: 60 mg Enoxaparin Sodium (Lovenox) 40 mg SUBQ Q12HR [facility] Stop: 09/12/18 08:59 Last Admin: 07/16/18 08:30 Dose: 40 mg Furosemide (Lasix) 40 mg IVP BID [facility] Stop: 09/13/18 16:59 Last Admin: 07/16/18 09:17 Dose: 40 mg Guaifenesin (Robitussin) 100 mg PO Q4H PRN PRN Reason: Cough or Congestion Stop: 09/12/18 03:55 Diltiazem HCl 125 mg/ Dextrose 125 mls @ 10 mls/hr IV TITR [facility]; Protocol Stop: 09/12/18 02:44 Last Admin: 07/14/18 02:49 Dose: 10 mg/hr, 10 mls/hr Piperacillin Sod/Tazobactam (Sod 3.375 gm/ Sodium Chloride) 50 mls @ 100 mls/ hr IV Q6HR [facility] Stop: 09/12/18 17:59 Last Admin: 07/16/18 05:37 Dose: 100 mls/hr Vancomycin HCl 2 gm/ Sodium (Chloride) 500 mls @ 250 mls/hr IV Q12HR@0800,2000 [facility] Stop: 09/12/18 19:59 Last Admin: 07/16/18 08:25 Dose: 250 mls/hr Ibuprofen (Motrin) 800 mg PO TID [facility] Stop: 09/13/18 16:40 Last Admin: 07/16/18 09:33 Dose: 800 mg Ipratropium [place] (Atrovent Neb 0.5mg/2.5ml) 0.5 mg HHN QIDRT [facility] Stop: 09/12/18 14:59 Last Admin: 07/16/18 11:12 Dose: 0.5 mg Methylprednisolone Sodium Succinate (Solu-Medrol) 20 mg IVP Q12H [facility] Stop: 09/12/18 16:14 Last Admin: 07/16/18 05:38 Dose: 20 mg Miscellaneous (Vancomycin Iv Per Pharmacy) 1 ea [facility] PRN [facility] Stop: 09/12/18 03:55 Morphine Sulfate (Morphine) 2 mg IVP Q6H PRN PRN Reason: Severe Pain Stop: 09/12/18 09:51 Ondansetron HCl (Zofran) 4 mg IV Q8H PRN PRN Reason: Nausea / Vomiting Stop: 09/12/18 03:55 Pantoprazole Sodium (Protonix) 40 mg IVP DAILY [facility] Stop: 09/12/18 10:30 Last Admin: 07/16/18 09:17 Dose: 40 mg Potassium Chloride (Klor-Con) 20 meq PO BID [facility] Stop: 09/12/18 10:28 Last Admin: 07/16/18 09:19 Dose: 20 meq Tramadol HCl (Ultram) 50 mg PO Q6HR PRN PRN Reason: Pain (Moderate) Stop: 09/12/18 16:33 Last Admin: 07/15/18 15:30 Dose: 50 mg Zolpidem Tartrate (Ambien) 10 mg PO HS PRN PRN Reason: Insomnia Stop: 09/12/18 03:55 General: Alert, Mild distress HEENT: Mucous membr. moist/pink Neck: Supple, JVD, +2 carotid pulse wo bruit (10 cm upper sternal angle) Cardiovascular: Regular rate, Systolic murmurs, Other (uncontrolled atrial fibrillation) Abdomen: Bowel sounds, Soft, Obese Neurological: Normal gait, Strength at 5/5 X4 ext, Normal tone, Cranial nerves 3 -12 NL, Reflexes 2+ Skin: Breakdown (both legs) Assessment/Plan - Assessment Assessment: Right lower lobe pneumonia Congestive heart failure diastolic dysfunction and acute Cellulitis right leg Pleural effusion C kidney disease stage III Lactic acidosis Uncontrolled atrial fibrillation Hypertension Protein calorie malnutrition Morbid obesity Lactic acidosis IV antibiotics IV Lasix - Plan Plan: Start IV Lasix IV antibiotics fluid restriction echocardiogram Patient to have Zaroxolyn
--- NOTE | 2018-07-16 14:23 | Cardiology ---
07/14/[address] Scruggs. M-MODE ECHOCARDIOGRAM: Mitral valve, anterior leaflet of mitral valve shows normal excursion, EF velocity. Posterior leaflet of mitral valve shows normal excursion. Left ventricular posterior wall shows increased thickness, normal excursion. Interventricular septum shows increased thickness, normal excursion, hypertrophy of the left ventricle, ejection fraction 57%. Left atrium normal. Left atrium enlarged 5.2 cm. Aortic root shows normal dimension, normal excursion of aortic leaflets. CONCLUSION: Hypertrophy of the left ventricle, left atrial enlargement, ejection fraction 57%. 2D ECHO: Long axis view shows enlarged left ventricular cavity with ejection fraction of 57%. There is hypertrophy of the left ventricle. Left atrial enlargement. Aortic root shows normal dimension, normal excursion of aortic leaflets. Short axis view of mitral valve normal. Short axis view of aortic valve normal. Apical four chamber view showed normal sized left ventricle with hypertrophy of the left ventricle, left atrium enlarged. Right ventricular cavity, right atrium normal, no pericardial effusion. CONCLUSION: Hypertrophy of the left ventricle. Left atrial enlargement, ejection fraction 57%. Doppler study shows moderate mitral regurgitation, mild aortic regurgitation, mild tricuspid regurgitation. Pressure half time, aortic valve is 449 milliseconds. Right ventricular systolic pressure 41 mmHg. JOB# [id number]
--- NOTE | 2018-07-16 16:52 | Internal Medicine Prog Note ---
Internal Medicine Subjective - Subjective Service Date: 07/16/18 Patient seen and examined:: with staff Patient is:: awake, verbal Patient Complaints of:: other (ble pain) Per staff patient has:: tolerating meds Internal Medicine Objective - Results Result Diagrams: 07/16/18 04:40 07/16/18 04:40 Recent Labs: Laboratory Last Values WBC 19.1 Th/cmm (4.8-10.8) H 07/16/18 04:40 RBC 4.28 Mil/cmm (4.30-5.70) L 07/16/18 04:40 Hgb 10.9 gm/dL (12-16) L 07/16/18 04:40 Hct 33.7 % (41.0-60) L 07/16/18 04:40 MCV 78.8 fl (80-99) L 07/16/18 04:40 MCH 25.4 pg (26.0-30.0) L 07/16/18 04:40 MCHC Differential 32.3 pg (28.0-36.0) 07/16/18 04:40 RDW 15.9 % (11.5-20.0) 07/16/18 04:40 Plt Count 419 Th/cmm (150-400) H D 07/16/18 04:40 MPV 7.7 fl 07/16/18 04:40 Add Manual Diff YES 07/16/18 04:40 Band Neutrophils % 0 % (0-10) 07/16/18 04:40 Neutrophils (Manual) 90 % (40-80) H 07/16/18 04:40 Lymphocytes 6 % (20-50) L 07/16/18 04:40 Monocytes 4 % (2-10) 07/16/18 04:40 Eosinophils 0 % (0-5) 07/15/18 06:35 Basophils 0 % (0-3) 07/16/18 04:40 Sodium 132 mEq/L (136-145) L 07/16/18 04:40 Potassium 4.4 mEq/L (3.5-5.1) 07/16/18 04:40 Chloride 102 mEq/L (98-107) 07/16/18 04:40 Carbon Dioxide 21.3 mEq/L (21.0-31.0) 07/16/18 04:40 Anion Gap 13.1 (7.0-16.0) 07/16/18 04:40 BUN 42 mg/dL (7-25) H 07/16/18 04:40 Creatinine 1.9 mg/dL (0.7-1.3) H 07/16/18 04:40 Est GFR ( Amer) 47.9 ml/min (>90) 07/16/18 04:40 Est GFR (Non-Af Amer) 39.6 ml/min 07/16/18 04:40 BUN/Creatinine Ratio 22.1 07/16/18 04:40 Glucose 151 mg/dL (70-105) H 07/16/18 04:40 Whole Bld Lactic Acid 1.56 mmol/L (0.60-1.99) 07/15/18 15:00 Calcium 8.4 mg/dL (8.6-10.3) L 07/16/18 04:40 Magnesium 2.2 mg/dL (1.9-2.7) 07/15/18 06:35 Total Bilirubin 0.8 mg/dL (0.3-1.0) 07/14/18 00:20 AST 53 U/L (13-39) H 07/14/18 00:20 ALT 62 U/L (7-52) H 07/14/18 00:20 Alkaline Phosphatase 92 U/L (34-104) 07/14/18 00:20 Troponin I 0.12 ng/mL (0.01-0.05) H* D 07/15/18 06:35 B-Natriuretic Peptide 482.0 pg/mL (5.0-100.0) H 07/16/18 04:40 Total Protein 6.4 gm/dL (6.0-8.3) 07/14/18 00:20 Albumin 3.5 gm/dL (4.2-5.5) L 07/14/18 00:20 Globulin 2.9 gm/dL 07/14/18 00:20 Albumin/Globulin Ratio 1.2 (1.0-1.8) 07/14/18 00:20 Triglycerides 48 mg/dL (<150) 07/14/18 00:20 Cholesterol 61 mg/dL (<200) 07/14/18 00:20 LDL Cholesterol Direct 36 mg/dL (75-193) L 07/14/18 00:20 HDL Cholesterol 22 mg/dL (23-92) L 07/14/18 00:20 Vancomycin Trough 15.8 ug/mL (5-10) H 07/15/18 19:00 - Physical Exam Vitals and I&O: Vital Signs Temp 97.9 F 07/16/18 15:46 Pulse 92 07/16/18 15:46 Resp 20 07/16/18 15:46 BP 107/83 07/16/18 15:46 Pulse Ox 100 07/16/18 15:46 Intake & Output 07/15/18 07/16/18 07/16/18 18:59 06:59 18:59 Intake Total 550 1150 Balance 550 1150 Weight (lbs) 400 lb 399 lb 9.6 oz 399 lb 9.6 oz Intake: Intake, IV Amount 550 650 Piperacillin Sodium/ 50 150 Tazobact 3.375 gm In Sodium Chloride 0.9% 50 ml @ 100 mls/hr IV Q6HR [facility] Rx#:[id number] Vancomycin HCl 2 gm In 500 500 Sodium Chloride 0.9% 500 ml @ 250 mls/hr IV Q12HR@ 0800,2000 [facility] Rx#: [id number] Oral 500 Other: # Voids 3 # Bowel Movements 0 Stool Characteristics Formed Weight Source Bedscale Bedscale Bedscale Active Medications: Current Medications Acetaminophen (Tylenol) 650 mg PO Q4HR PRN PRN Reason: Pain Or Fever above 101 Stop: 09/12/18 03:55 Diltiazem HCl (Cardizem) 20 mg IVP Q4H PRN PRN Reason: HR Greater than 130 per min Stop: 09/12/18 03:55 Last Admin: 07/14/18 16:22 Dose: 20 mg Diltiazem HCl (Cardizem) 60 mg PO Q6HR [facility] Stop: 09/12/18 17:59 Last Admin: 07/16/18 13:00 Dose: 60 mg Enoxaparin Sodium (Lovenox) 40 mg SUBQ Q12HR [facility] Stop: 09/12/18 08:59 Last Admin: 07/16/18 08:30 Dose: 40 mg Furosemide (Lasix) 40 mg IVP BID [facility] Stop: 09/13/18 16:59 Last Admin: 07/16/18 16:27 Dose: 40 mg Guaifenesin (Robitussin) 100 mg PO Q4H PRN PRN Reason: Cough or Congestion Stop: 09/12/18 03:55 Piperacillin Sod/Tazobactam (Sod 3.375 gm/ Sodium Chloride) 50 mls @ 100 mls/ hr IV Q6HR [facility] Stop: 09/12/18 17:59 Last Admin: 07/16/18 12:30 Dose: 100 mls/hr Vancomycin HCl 2 gm/ Sodium (Chloride) 500 mls @ 250 mls/hr IV Q12HR@0800,2000 [facility] Stop: 09/12/18 19:59 Last Admin: 07/16/18 08:25 Dose: 250 mls/hr Ibuprofen (Motrin) 800 mg PO TID [facility] Stop: 09/13/18 16:40 Last Admin: 07/16/18 14:56 Dose: 800 mg Ipratropium [place] (Atrovent Neb 0.5mg/2.5ml) 0.5 mg HHN QIDRT [facility] Stop: 09/12/18 14:59 Last Admin: 07/16/18 15:13 Dose: 0.5 mg Methylprednisolone Sodium Succinate (Solu-Medrol) 20 mg IVP Q12H [facility] Stop: 09/12/18 16:14 Last Admin: 07/16/18 16:04 Dose: 20 mg Miscellaneous (Vancomycin Iv Per Pharmacy) 1 ea [facility] PRN [facility] Stop: 09/12/18 03:55 Morphine Sulfate (Morphine) 2 mg IVP Q6H PRN PRN Reason: Severe Pain Stop: 09/12/18 09:51 Ondansetron HCl (Zofran) 4 mg IV Q8H PRN PRN Reason: Nausea / Vomiting Stop: 09/12/18 03:55 Pantoprazole Sodium (Protonix) 40 mg IVP DAILY [facility] Stop: 09/12/18 10:30 Last Admin: 07/16/18 09:17 Dose: 40 mg Potassium Chloride (Klor-Con) 20 meq PO BID [facility] Stop: 09/12/18 10:28 Last Admin: 07/16/18 16:27 Dose: 20 meq Tramadol HCl (Ultram) 50 mg PO Q6HR PRN PRN Reason: Pain (Moderate) Stop: 09/12/18 16:33 Last Admin: 07/15/18 15:30 Dose: 50 mg Zolpidem Tartrate (Ambien) 10 mg PO HS PRN PRN Reason: Insomnia Stop: 09/12/18 03:55 General: alert HEENT: NC/AT, PERRLA Neck: Supple Lungs: wheezing, ronchi Cardiovascular: RRR, Normal S1, Normal S2, without murmur Abdomen: soft, non-tender, non-distended, positive bowel sound Extremities: other (multiple open sores) Neurological: alert Internal Medicine Assmt/Plan - Assessment Assessment: Bacteremia Group G streptococcus Multiple open sores with Providencia Rettgeri Acute urinary tract infection acute renal failure morbidly obese anemia hypomagnesemia morbid obesity hypertension congestive heart failure asthma chronic obstructive pulmonary disease type 2 diabetes. - Plan Plan: AM labs continue iv vanco/zosyn pain mgmt continue current plan of care
[2018-07-17] MEDS: Diltiazem 30 mg Tab PO SCH ×5 (00:02→23:35)
[2018-07-17] MEDS: methylPREDNISolone SS 40 mg Vial IVP SCH ×2 (04:46→16:33)
[2018-07-17] MEDS: Ipratropium Neb 0.5 mg/2.5 mL UD HHN SCH ×5 (04:51→19:40)
--- NOTE | 2018-07-17 06:21 | Progress Notes ---
DATE: 07/14/2018 PULMONARY PROGRESS NOTE SUBJECTIVE: The patient appears to be doing okay, comfortable, in no distress. OBJECTIVE: VITAL SIGNS: Temperature 97.6, pulse 83, respirations 19, blood pressure 142/90, saturation 97%. CHEST: Good breath sounds. Decreased rhonchi. HEART: Regular rhythm. ABDOMEN: Soft. EXTREMITIES: There is edema. LABORATORY DATA: WBC is 19.1, hemoglobin 10.9, hematocrit 33.7, platelets 419. Sodium 132, potassium 4.4, BUN 42, creatinine 1.4. BNP is 482. IMPRESSION: 1. Respiratory failure. 2. Pulmonary edema. 3. Peripheral edema. 4. Congestive heart failure. 5. Chronic obstructive pulmonary disease. 6. Cellulitis. 7. Obesity. PLAN: Continue nebulized treatment, pulmonary toilet, supportive care. Follow up chest x-ray, on diuresis and antibiotics. JOB# [id number]
[2018-07-17 07:26] LABS: HEMATOCRIT 32.9 % (41.0-60); MEAN CELL VOLUME 77.4 fl (80-99); MEAN CORPUSCULAR HEMOGLOBIN 25.8 pg (26.0-30.0); MEAN CORPUSCULAR HGB CONC 33.4 pg (28.0-36.0); MEAN PLATELET VOLUME 7.6 fl; PLATELET COUNT 421 Th/cmm (150-400); RED BLOOD COUNT 4.24 Mil/cmm (4.30-5.70); RED CELL DISTRIBUTION WIDTH 15.8 % (11.5-20.0)
[2018-07-17 07:39] LABS: ANION GAP 14.1 (7.0-16.0); CALCIUM SERUM 8.4 mg/dL (8.6-10.3); CREATININE - SERUM 1.6 mg/dL (0.7-1.3); GFR AFRICAN-AMERICAN 58.4 ml/min (>90); GFR NON AFRICAN-AMERICAN 48.3 ml/min; POTASSIUM SERUM 4.1 mEq/L (3.5-5.1)
[2018-07-17 07:47] LABS: WHITE BLOOD COUNT 16.6 Th/cmm (4.8-10.8)
[2018-07-17 07:58] LABS: LYMPHOCYTE 4 % (20-50); MONOCYTE 5 % (2-10); NEUTROPHILS 91 % (40-80); PLATELET ESTIMATE ADEQUATE (NORMAL)
[2018-07-17] MEDS: Potassium Chloride 20 mEq ER Tab PO SCH (08:19)
[2018-07-17] MEDS: Enoxaparin 40 mg/0.4 mL 0.4mL Syr SUBQ SCH ×2 (08:20→20:18)
--- NOTE | 2018-07-17 08:47 | Diagnostic Imaging Report ---
Portable chest x-ray HISTORY: Shortness of breath Compared to prior exam of July 15, 2018, persistent marked cardiomegaly. Again noted is a small air collection that appears to be below the right hemidiaphragm. As noted on the right are exam, free subdiaphragmatic air cannot be excluded. This may be related to bowel. Again, if indicated a CT scan would provide additional assessment and evaluation. IMPRESSION: 1. Little change from the prior exam of 07/15/2018 as noted above.
--- NOTE | 2018-07-17 11:06 | General Progress Note ---
Subjective - Review of Systems Service Date: 07/17/18 Subjective: Patient has less shortness of breath still complaining of swelling both lower extremities and open wound on the right leg Patient feels better patient complained of burning in both the leg Objective - Results Result Diagrams: 07/17/18 07:00 07/17/18 07:00 Recent Labs: Laboratory Last Values WBC 16.6 Th/cmm (4.8-10.8) H 07/17/18 07:00 RBC 4.24 Mil/cmm (4.30-5.70) L 07/17/18 07:00 Hgb 11.0 gm/dL (12-16) L 07/17/18 07:00 Hct 32.9 % (41.0-60) L 07/17/18 07:00 MCV 77.4 fl (80-99) L 07/17/18 07:00 MCH 25.8 pg (26.0-30.0) L 07/17/18 07:00 MCHC Differential 33.4 pg (28.0-36.0) 07/17/18 07:00 RDW 15.8 % (11.5-20.0) 07/17/18 07:00 Plt Count 421 Th/cmm (150-400) H 07/17/18 07:00 MPV 7.6 fl 07/17/18 07:00 Add Manual Diff YES 07/17/18 07:00 Band Neutrophils % 0 % (0-10) 07/16/18 04:40 Neutrophils (Manual) 91 % (40-80) H 07/17/18 07:00 Lymphocytes 4 % (20-50) L 07/17/18 07:00 Monocytes 5 % (2-10) 07/17/18 07:00 Eosinophils 0 % (0-5) 07/15/18 06:35 Basophils 0 % (0-3) 07/16/18 04:40 Platelet Estimate ADEQUATE (NORMAL) 07/17/18 07:00 Sodium 138 mEq/L (136-145) 07/17/18 07:00 Potassium 4.1 mEq/L (3.5-5.1) 07/17/18 07:00 Chloride 105 mEq/L (98-107) 07/17/18 07:00 Carbon Dioxide 23.0 mEq/L (21.0-31.0) 07/17/18 07:00 Anion Gap 14.1 (7.0-16.0) 07/17/18 07:00 BUN 38 mg/dL (7-25) H 07/17/18 07:00 Creatinine 1.6 mg/dL (0.7-1.3) H 07/17/18 07:00 Est GFR ( Amer) 58.4 ml/min (>90) 07/17/18 07:00 Est GFR (Non-Af Amer) 48.3 ml/min 07/17/18 07:00 BUN/Creatinine Ratio 23.8 07/17/18 07:00 Glucose 125 mg/dL (70-105) H 07/17/18 07:00 Whole Bld Lactic Acid 1.56 mmol/L (0.60-1.99) 07/15/18 15:00 Calcium 8.4 mg/dL (8.6-10.3) L 07/17/18 07:00 Magnesium 2.2 mg/dL (1.9-2.7) 07/15/18 06:35 Total Bilirubin 0.8 mg/dL (0.3-1.0) 07/14/18 00:20 AST 53 U/L (13-39) H 07/14/18 00:20 ALT 62 U/L (7-52) H 07/14/18 00:20 Alkaline Phosphatase 92 U/L (34-104) 07/14/18 00:20 Troponin I 0.12 ng/mL (0.01-0.05) H* D 07/15/18 06:35 B-Natriuretic Peptide 537.0 pg/mL (5.0-100.0) H 07/17/18 07:00 Total Protein 6.4 gm/dL (6.0-8.3) 07/14/18 00:20 Albumin 3.5 gm/dL (4.2-5.5) L 07/14/18 00:20 Globulin 2.9 gm/dL 07/14/18 00:20 Albumin/Globulin Ratio 1.2 (1.0-1.8) 07/14/18 00:20 Triglycerides 48 mg/dL (<150) 07/14/18 00:20 Cholesterol 61 mg/dL (<200) 07/14/18 00:20 LDL Cholesterol Direct 36 mg/dL (75-193) L 07/14/18 00:20 HDL Cholesterol 22 mg/dL (23-92) L 07/14/18 00:20 Vancomycin Trough 27.4 ug/mL (5-10) H 07/17/18 07:00 - Physical Exam Vitals and I&O: Vital Signs Temp 97.0 F 07/17/18 08:00 Pulse 73 07/17/18 08:00 Resp 19 07/17/18 08:00 BP 164/98 07/17/18 08:27 Pulse Ox 99 07/17/18 08:00 Intake & Output 07/16/18 07/17/18 07/17/18 18:59 06:59 18:59 Intake Total 600 490 Output Total 1100 Balance 600 -610 Weight (lbs) 181.256 kg 180.983 kg Intake: Intake, IV Amount 600 50 Piperacillin Sodium/ 100 50 Tazobact 3.375 gm In Sodium Chloride 0.9% 50 ml @ 100 mls/hr IV Q6HR [facility] Rx#:[id number] Vancomycin HCl 2 gm In 500 Sodium Chloride 0.9% 500 ml @ 250 mls/hr IV Q12HR@ 0800,2000 [facility] Rx#: [id number] Oral 440 Output: Urine 1100 Other: # Voids 3 # Bowel Movements 2 Stool Characteristics Soft Weight Source Bedscale Estimated Active Medications: Current Medications Acetaminophen (Tylenol) 650 mg PO Q4HR PRN PRN Reason: Pain Or Fever above 101 Stop: 09/12/18 03:55 [place] Oil/[place] Balsam/Trypsin (Venelex) 1 appl TP DAILY [facility] Stop: 09/15/18 08:59 Diltiazem HCl (Cardizem) 20 mg IVP Q4H PRN PRN Reason: HR Greater than 130 per min Stop: 09/12/18 03:55 Last Admin: 07/14/18 16:22 Dose: 20 mg Diltiazem HCl (Cardizem) 60 mg PO Q6HR [facility] Stop: 09/12/18 17:59 Last Admin: 07/17/18 05:41 Dose: 60 mg Enoxaparin Sodium (Lovenox) 40 mg SUBQ Q12HR [facility] Stop: 09/12/18 08:59 Last Admin: 07/17/18 08:20 Dose: 40 mg Furosemide (Lasix) 40 mg IVP DAILY [facility] Stop: 09/15/18 08:59 Last Admin: 07/17/18 08:27 Dose: 40 mg Guaifenesin (Robitussin) 100 mg PO Q4H PRN PRN Reason: Cough or Congestion Stop: 09/12/18 03:55 Piperacillin Sod/Tazobactam (Sod 3.375 gm/ Sodium Chloride) 50 mls @ 100 mls/ hr IV Q6HR [facility] Stop: 09/12/18 17:59 Last Admin: 07/17/18 05:42 Dose: 100 mls/hr Vancomycin HCl 2 gm/ Sodium (Chloride) 500 mls @ 250 mls/hr IV Q18H [facility] Stop: 09/15/18 13:59 Ibuprofen (Motrin) 800 mg PO TID [facility] Stop: 09/13/18 16:40 Ipratropium [place] (Atrovent Neb 0.5mg/2.5ml) 0.5 mg HHN QIDRT [facility] Stop: 09/12/18 14:59 Last Admin: 07/17/18 07:22 Dose: 0.5 mg Methylprednisolone Sodium Succinate (Solu-Medrol) 20 mg IVP Q12H [facility] Stop: 09/12/18 16:14 Last Admin: 07/17/18 04:46 Dose: 20 mg Miscellaneous (Vancomycin Iv Per Pharmacy) 1 ea [facility] PRN [facility] Stop: 09/12/18 03:55 Morphine Sulfate (Morphine) 2 mg IVP Q6H PRN PRN Reason: Severe Pain Stop: 09/12/18 09:51 Ondansetron HCl (Zofran) 4 mg IV Q8H PRN PRN Reason: Nausea / Vomiting Stop: 09/12/18 03:55 Pantoprazole Sodium (Protonix) 40 mg IVP DAILY [facility] Stop: 09/12/18 10:30 Last Admin: 07/17/18 08:19 Dose: 40 mg Potassium Chloride (Klor-Con) 20 meq PO DAILY [facility] Stop: 09/15/18 08:59 Last Admin: 07/17/18 08:19 Dose: 20 meq Tramadol HCl (Ultram) 50 mg PO Q6HR PRN PRN Reason: Pain (Moderate) Stop: 09/12/18 16:33 Last Admin: 07/17/18 09:52 Dose: 50 mg Zolpidem Tartrate (Ambien) 10 mg PO HS PRN PRN Reason: Insomnia Stop: 09/12/18 03:55 General: Alert, Mild distress HEENT: Mucous membr. moist/pink Neck: Supple, JVD, +2 carotid pulse wo bruit (10 cm upper sternal angle) Cardiovascular: Regular rate, Systolic murmurs, Other (uncontrolled atrial fibrillation) Abdomen: Bowel sounds, Soft, Obese Neurological: Normal gait, Strength at 5/5 X4 ext, Normal tone, Cranial nerves 3 -12 NL, Reflexes 2+ Skin: Breakdown (both legs) Assessment/Plan - Assessment Assessment: Right lower lobe pneumonia Congestive heart failure diastolic dysfunction and acute Cellulitis right leg Pleural effusion C kidney disease stage III Lactic acidosis Uncontrolled atrial fibrillation Hypertension Protein calorie malnutrition Morbid obesity Lactic acidosis IV antibiotics IV Lasix - Plan Plan: Start IV Lasix IV antibiotics fluid restriction echocardiogram Patient to have Zaroxolyn
--- NOTE | 2018-07-17 13:56 | Internal Medicine Prog Note ---
Internal Medicine Subjective - Subjective Service Date: 07/17/18 (patient seen and examined. awake, alert bilateral lower extremity improving ) Patient is:: awake, verbal Per staff patient has:: no adverse event, tolerating meds Internal Medicine Objective - Results Result Diagrams: 07/17/18 07:00 07/17/18 07:00 Recent Labs: Laboratory Last Values WBC 16.6 Th/cmm (4.8-10.8) H 07/17/18 07:00 RBC 4.24 Mil/cmm (4.30-5.70) L 07/17/18 07:00 Hgb 11.0 gm/dL (12-16) L 07/17/18 07:00 Hct 32.9 % (41.0-60) L 07/17/18 07:00 MCV 77.4 fl (80-99) L 07/17/18 07:00 MCH 25.8 pg (26.0-30.0) L 07/17/18 07:00 MCHC Differential 33.4 pg (28.0-36.0) 07/17/18 07:00 RDW 15.8 % (11.5-20.0) 07/17/18 07:00 Plt Count 421 Th/cmm (150-400) H 07/17/18 07:00 MPV 7.6 fl 07/17/18 07:00 Add Manual Diff YES 07/17/18 07:00 Band Neutrophils % 0 % (0-10) 07/16/18 04:40 Neutrophils (Manual) 91 % (40-80) H 07/17/18 07:00 Lymphocytes 4 % (20-50) L 07/17/18 07:00 Monocytes 5 % (2-10) 07/17/18 07:00 Eosinophils 0 % (0-5) 07/15/18 06:35 Basophils 0 % (0-3) 07/16/18 04:40 Platelet Estimate ADEQUATE (NORMAL) 07/17/18 07:00 Sodium 138 mEq/L (136-145) 07/17/18 07:00 Potassium 4.1 mEq/L (3.5-5.1) 07/17/18 07:00 Chloride 105 mEq/L (98-107) 07/17/18 07:00 Carbon Dioxide 23.0 mEq/L (21.0-31.0) 07/17/18 07:00 Anion Gap 14.1 (7.0-16.0) 07/17/18 07:00 BUN 38 mg/dL (7-25) H 07/17/18 07:00 Creatinine 1.6 mg/dL (0.7-1.3) H 07/17/18 07:00 Est GFR ( Amer) 58.4 ml/min (>90) 07/17/18 07:00 Est GFR (Non-Af Amer) 48.3 ml/min 07/17/18 07:00 BUN/Creatinine Ratio 23.8 07/17/18 07:00 Glucose 125 mg/dL (70-105) H 07/17/18 07:00 Whole Bld Lactic Acid 1.56 mmol/L (0.60-1.99) 07/15/18 15:00 Calcium 8.4 mg/dL (8.6-10.3) L 07/17/18 07:00 Magnesium 2.2 mg/dL (1.9-2.7) 07/15/18 06:35 Total Bilirubin 0.8 mg/dL (0.3-1.0) 07/14/18 00:20 AST 53 U/L (13-39) H 07/14/18 00:20 ALT 62 U/L (7-52) H 07/14/18 00:20 Alkaline Phosphatase 92 U/L (34-104) 07/14/18 00:20 Troponin I 0.12 ng/mL (0.01-0.05) H* D 07/15/18 06:35 B-Natriuretic Peptide 537.0 pg/mL (5.0-100.0) H 07/17/18 07:00 Total Protein 6.4 gm/dL (6.0-8.3) 07/14/18 00:20 Albumin 3.5 gm/dL (4.2-5.5) L 07/14/18 00:20 Globulin 2.9 gm/dL 07/14/18 00:20 Albumin/Globulin Ratio 1.2 (1.0-1.8) 07/14/18 00:20 Triglycerides 48 mg/dL (<150) 07/14/18 00:20 Cholesterol 61 mg/dL (<200) 07/14/18 00:20 LDL Cholesterol Direct 36 mg/dL (75-193) L 07/14/18 00:20 HDL Cholesterol 22 mg/dL (23-92) L 07/14/18 00:20 Vancomycin Trough 27.4 ug/mL (5-10) H 07/17/18 07:00 - Physical Exam Vitals and I&O: Vital Signs Temp 97.9 F 07/17/18 11:55 Pulse 102 07/17/18 12:45 Resp 19 07/17/18 11:55 BP 165/113 07/17/18 11:55 Pulse Ox 97 07/17/18 11:55 Intake & Output 07/16/18 07/17/18 07/17/18 18:59 06:59 18:59 Intake Total 600 540 Output Total 1100 Balance 600 -560 Weight (lbs) 399 lb 9.6 oz 399 lb Intake: Intake, IV Amount 600 100 Piperacillin Sodium/ 100 100 Tazobact 3.375 gm In Sodium Chloride 0.9% 50 ml @ 100 mls/hr IV Q6HR [facility] Rx#:[id number] Vancomycin HCl 2 gm In 500 Sodium Chloride 0.9% 500 ml @ 250 mls/hr IV Q12HR@ 0800,2000 [facility] Rx#: [id number] Oral 440 Output: Urine 1100 Other: # Voids 3 # Bowel Movements 2 Stool Characteristics Soft Weight Source Bedscale Estimated Active Medications: Current Medications Acetaminophen (Tylenol) 650 mg PO Q4HR PRN PRN Reason: Pain Or Fever above 101 Stop: 09/12/18 03:55 Last Admin: 07/17/18 12:43 Dose: 650 mg [place] Oil/[place] Balsam/Trypsin (Venelex) 1 appl TP DAILY [facility] Stop: 09/15/18 08:59 Diltiazem HCl (Cardizem) 20 mg IVP Q4H PRN PRN Reason: HR Greater than 130 per min Stop: 09/12/18 03:55 Last Admin: 07/14/18 16:22 Dose: 20 mg Diltiazem HCl (Cardizem) 60 mg PO Q6HR [facility] Stop: 09/12/18 17:59 Last Admin: 07/17/18 12:45 Dose: 60 mg Enoxaparin Sodium (Lovenox) 40 mg SUBQ Q12HR [facility] Stop: 09/12/18 08:59 Last Admin: 07/17/18 08:20 Dose: 40 mg Furosemide (Lasix) 40 mg IVP DAILY [facility] Stop: 09/15/18 08:59 Last Admin: 07/17/18 08:27 Dose: 40 mg Guaifenesin (Robitussin) 100 mg PO Q4H PRN PRN Reason: Cough or Congestion Stop: 09/12/18 03:55 Piperacillin Sod/Tazobactam (Sod 3.375 gm/ Sodium Chloride) 50 mls @ 100 mls/ hr IV Q6HR [facility] Stop: 09/12/18 17:59 Last Admin: 07/17/18 12:40 Dose: 100 mls/hr Vancomycin HCl 2 gm/ Sodium (Chloride) 500 mls @ 250 mls/hr IV Q18H [facility] Stop: 09/15/18 13:59 Last Admin: 07/17/18 13:51 Dose: 250 mls/hr Ibuprofen (Motrin) 800 mg PO TID [facility] Stop: 09/13/18 16:40 Ipratropium [place] (Atrovent Neb 0.5mg/2.5ml) 0.5 mg HHN QIDRT [facility] Stop: 09/12/18 14:59 Last Admin: 07/17/18 11:33 Dose: 0.5 mg Methylprednisolone Sodium Succinate (Solu-Medrol) 20 mg IVP Q12H [facility] Stop: 09/12/18 16:14 Last Admin: 07/17/18 04:46 Dose: 20 mg Miscellaneous (Vancomycin Iv Per Pharmacy) 1 [facility] PRN [facility] Stop: 09/12/18 03:55 Miscellaneous (Clinical Monitoring) 1 [facility] DAILY PRN PRN Reason: RENAL DOSING (MOTRIN) Stop: 09/15/18 13:51 Morphine Sulfate (Morphine) 2 mg IVP Q6H PRN PRN Reason: Severe Pain Stop: 09/12/18 09:51 Ondansetron HCl (Zofran) 4 mg IV Q8H PRN PRN Reason: Nausea / Vomiting Stop: 09/12/18 03:55 Pantoprazole Sodium (Protonix) 40 mg IVP DAILY [facility] Stop: 09/12/18 10:30 Last Admin: 07/17/18 08:19 Dose: 40 mg Potassium Chloride (Klor-Con) 20 meq PO DAILY [facility] Stop: 09/15/18 08:59 Last Admin: 07/17/18 08:19 Dose: 20 meq Tramadol HCl (Ultram) 50 mg PO Q6HR PRN PRN Reason: Pain (Moderate) Stop: 09/12/18 16:33 Last Admin: 07/17/18 09:52 Dose: 50 mg Zolpidem Tartrate (Ambien) 10 mg PO HS PRN PRN Reason: Insomnia Stop: 09/12/18 03:55 General: alert HEENT: NC/AT, PERRLA Neck: Supple Lungs: wheezing, ronchi Cardiovascular: RRR, Normal S1, Normal S2, without murmur Abdomen: soft, non-tender, non-distended, positive bowel sound Extremities: other (multiple open sores) Neurological: alert Internal Medicine Assmt/Plan - Assessment Assessment: Bacteremia Group G streptococcus Multiple open sores with Providencia Rettgeri Acute urinary tract infection acute renal failure morbidly obese anemia hypomagnesemia morbid obesity hypertension congestive heart failure asthma chronic obstructive pulmonary disease type 2 diabetes. - Plan Plan: AM labs taper solumedrol continue with wound care may need SNF placement vs LTAC for ivabx continue iv vanco/zosyn pain mgmt continue current plan of care
[2018-07-17] MEDS: Venelex 60gm Tube TP SCH (14:49)
--- NOTE | 2018-07-17 22:13 | Progress Notes ---
DATE: 07/17/2018 PULMONARY PROGRESS NOTE SUBJECTIVE: The patient appears to be doing okay, no distress. OBJECTIVE: VITAL SIGNS: Temperature 98.8, pulse is 100, respirations 18, blood pressure ____, oxygen saturation 98%. CHEST: Good breath sounds. No wheeze or rhonchi. HEART: Regular. ABDOMEN: Soft. EXTREMITIES: Have 2+ edema. LABORATORY DATA: WBC is 16.6, hemoglobin is 8.0. Sodium 130, potassium 4.1, BUN 30, creatinine 1.6. ASSESSMENT: 1. Respiratory failure. 2. Pulmonary edema. 3. Cellulitis. 4. Peripheral edema. PLAN: 1. Continue antibiotics. 2. Diuresis. 3. Supportive care. 4. Decrease steroids. JOB# [id number]
[2018-07-18 05:33] LABS: HEMATOCRIT 33.1 % (41.0-60); HEMOGLOBIN 10.6 gm/dL (12-16); MEAN CELL VOLUME 77.5 fl (80-99); MEAN CORPUSCULAR HEMOGLOBIN 24.8 pg (26.0-30.0); MEAN PLATELET VOLUME 7.5 fl; PLATELET COUNT 421 Th/cmm (150-400); RED BLOOD COUNT 4.27 Mil/cmm (4.30-5.70); RED CELL DISTRIBUTION WIDTH 15.9 % (11.5-20.0); WHITE BLOOD COUNT 14.6 Th/cmm (4.8-10.8)
[2018-07-18 05:48] LABS: ANION GAP 12.9 (7.0-16.0); BUN - UREA NITROGEN 34 mg/dL (7-25); CALCIUM SERUM 8.2 mg/dL (8.6-10.3); CARBON DIOXIDE 24.3 mEq/L (21.0-31.0); CHLORIDE 105 mEq/L (98-107); CREATININE - SERUM 1.4 mg/dL (0.7-1.3); GFR AFRICAN-AMERICAN > 60.0 ml/min (>90); GFR NON AFRICAN-AMERICAN 56.3 ml/min; GLUCOSE 139 mg/dL (70-105); POTASSIUM SERUM 4.2 mEq/L (3.5-5.1); SODIUM SERUM 138 mEq/L (136-145)
[2018-07-18 06:24] LABS: BAND NEUTROPHILE 2 % (0-10); LYMPHOCYTE 6 % (20-50); MONOCYTE 6 % (2-10); NEUTROPHILS 86 % (40-80); PLATELET ESTIMATE ADEQUATE (NORMAL)
[2018-07-18] MEDS: Diltiazem 30 mg Tab PO SCH ×3 (06:50→17:27)
[2018-07-18] MEDS: Ipratropium Neb 0.5 mg/2.5 mL UD HHN SCH ×4 (07:07→19:42)
[2018-07-18] MEDS: Enoxaparin 40 mg/0.4 mL 0.4mL Syr SUBQ SCH ×2 (08:15→20:48)
[2018-07-18] MEDS: Potassium Chloride 20 mEq ER Tab PO SCH (08:17)
[2018-07-18] MEDS: methylPREDNISolone SS 40 mg Vial IVP SCH (08:19)
[2018-07-18] MEDS: Venelex 60gm Tube TP SCH (08:23)
--- NOTE | 2018-07-18 12:31 | Internal Medicine Prog Note ---
Internal Medicine Subjective - Subjective Service Date: 07/18/18 Patient is:: awake, verbal Per staff patient has:: no adverse event, tolerating meds Internal Medicine Objective - Results Result Diagrams: 07/18/18 04:50 07/18/18 04:50 Recent Labs: Laboratory Last Values WBC 14.6 Th/cmm (4.8-10.8) H 07/18/18 04:50 RBC 4.27 Mil/cmm (4.30-5.70) L 07/18/18 04:50 Hgb 10.6 gm/dL (12-16) L 07/18/18 04:50 Hct 33.1 % (41.0-60) L 07/18/18 04:50 MCV 77.5 fl (80-99) L 07/18/18 04:50 MCH 24.8 pg (26.0-30.0) L 07/18/18 04:50 MCHC Differential 32.0 pg (28.0-36.0) 07/18/18 04:50 RDW 15.9 % (11.5-20.0) 07/18/18 04:50 Plt Count 421 Th/cmm (150-400) H 07/18/18 04:50 MPV 7.5 fl 07/18/18 04:50 Add Manual Diff YES 07/18/18 04:50 Band Neutrophils % 2 % (0-10) 07/18/18 04:50 Neutrophils (Manual) 86 % (40-80) H 07/18/18 04:50 Lymphocytes 6 % (20-50) L 07/18/18 04:50 Monocytes 6 % (2-10) 07/18/18 04:50 Eosinophils 0 % (0-5) 07/15/18 06:35 Basophils 0 % (0-3) 07/16/18 04:40 Platelet Estimate ADEQUATE (NORMAL) 07/18/18 04:50 Sodium 138 mEq/L (136-145) 07/18/18 04:50 Potassium 4.2 mEq/L (3.5-5.1) 07/18/18 04:50 Chloride 105 mEq/L (98-107) 07/18/18 04:50 Carbon Dioxide 24.3 mEq/L (21.0-31.0) 07/18/18 04:50 Anion Gap 12.9 (7.0-16.0) 07/18/18 04:50 BUN 34 mg/dL (7-25) H 07/18/18 04:50 Creatinine 1.4 mg/dL (0.7-1.3) H 07/18/18 04:50 Est GFR ( Amer) > 60.0 ml/min (>90) 07/18/18 04:50 Est GFR (Non-Af Amer) 56.3 ml/min 07/18/18 04:50 BUN/Creatinine Ratio 24.3 07/18/18 04:50 Glucose 139 mg/dL (70-105) H 07/18/18 04:50 Whole Bld Lactic Acid 1.56 mmol/L (0.60-1.99) 07/15/18 15:00 Calcium 8.2 mg/dL (8.6-10.3) L 07/18/18 04:50 Magnesium 2.2 mg/dL (1.9-2.7) 07/15/18 06:35 Total Bilirubin 0.8 mg/dL (0.3-1.0) 07/14/18 00:20 AST 53 U/L (13-39) H 07/14/18 00:20 ALT 62 U/L (7-52) H 07/14/18 00:20 Alkaline Phosphatase 92 U/L (34-104) 07/14/18 00:20 Troponin I 0.12 ng/mL (0.01-0.05) H* D 07/15/18 06:35 B-Natriuretic Peptide 537.0 pg/mL (5.0-100.0) H 07/17/18 07:00 Total Protein 6.4 gm/dL (6.0-8.3) 07/14/18 00:20 Albumin 3.5 gm/dL (4.2-5.5) L 07/14/18 00:20 Globulin 2.9 gm/dL 07/14/18 00:20 Albumin/Globulin Ratio 1.2 (1.0-1.8) 07/14/18 00:20 Triglycerides 48 mg/dL (<150) 07/14/18 00:20 Cholesterol 61 mg/dL (<200) 07/14/18 00:20 LDL Cholesterol Direct 36 mg/dL (75-193) L 07/14/18 00:20 HDL Cholesterol 22 mg/dL (23-92) L 07/14/18 00:20 Vancomycin Trough 27.4 ug/mL (5-10) H 07/17/18 07:00 - Physical Exam Vitals and I&O: Vital Signs Temp 96.9 F 07/18/18 11:38 Pulse 99 07/18/18 12:04 Resp 18 07/18/18 11:38 BP 176/112 07/18/18 11:38 Pulse Ox 99 07/18/18 11:38 Intake & Output 07/17/18 07/18/18 07/18/18 18:59 06:59 18:59 Intake Total 1250 600 500 Output Total 1650 1575 Balance -400 -975 500 Weight (lbs) 399 lb 399 lb Intake: Intake, IV Amount 600 100 500 Piperacillin Sodium/ 100 100 Tazobact 3.375 gm In Sodium Chloride 0.9% 50 ml @ 100 mls/hr IV Q6HR [facility] Rx#:[id number] Vancomycin HCl 2 gm In 500 500 Sodium Chloride 0.9% 500 ml @ 250 mls/hr IV Q18H [facility] Rx#:[id number] Oral 650 500 Output: Urine 1650 1575 Other: # Voids 6 # Bowel Movements 1 Stool Characteristics Formed [place] Weight Source Bedscale Bedscale Active Medications: Current Medications Acetaminophen (Tylenol) 650 mg PO Q4HR PRN PRN Reason: Mild Pain Or Fever above 101 Stop: 09/12/18 03:55 Last Admin: 07/17/18 12:43 Dose: 650 mg [place] Oil/[place] Balsam/Trypsin (Venelex) 1 appl TP DAILY [facility] Stop: 09/15/18 08:59 Last Admin: 07/18/18 08:23 Dose: 1 appl Diltiazem HCl (Cardizem) 20 mg IVP Q4H PRN PRN Reason: HR Greater than 130 per min Stop: 09/12/18 03:55 Last Admin: 07/14/18 16:22 Dose: 20 mg Diltiazem HCl (Cardizem) 60 mg PO Q6HR [facility] Stop: 09/12/18 17:59 Last Admin: 07/18/18 12:04 Dose: 60 mg Enoxaparin Sodium (Lovenox) 40 mg SUBQ Q12HR [facility] Stop: 09/12/18 08:59 Last Admin: 07/18/18 08:15 Dose: 40 mg Furosemide (Lasix) 40 mg IVP DAILY [facility] Stop: 09/15/18 08:59 Last Admin: 07/18/18 08:19 Dose: 40 mg Guaifenesin (Robitussin) 100 mg PO Q4H PRN PRN Reason: Cough or Congestion Stop: 09/12/18 03:55 Piperacillin Sod/Tazobactam (Sod 3.375 gm/ Sodium Chloride) 50 mls @ 100 mls/ hr IV Q6HR [facility] Stop: 09/12/18 17:59 Last Admin: 07/18/18 12:05 Dose: 100 mls/hr Vancomycin HCl 2 gm/ Sodium (Chloride) 500 mls @ 250 mls/hr IV Q18H [facility] Stop: 09/15/18 13:59 Last Infusion: 07/18/18 10:38 Dose: Infused Ibuprofen (Motrin) 800 mg PO TID PRN PRN Reason: Pain (Moderate) Stop: 09/13/18 16:40 Ipratropium [place] (Atrovent Neb 0.5mg/2.5ml) 0.5 mg HHN QIDRT [facility] Stop: 09/12/18 14:59 Last Admin: 07/18/18 11:12 Dose: 0.5 mg Methylprednisolone Sodium Succinate (Solu-Medrol) 20 mg IVP DAILY [facility] Stop: 09/16/18 08:59 Last Admin: 07/18/18 08:19 Dose: 20 mg Miscellaneous (Vancomycin Iv Per Pharmacy) 1 ea [facility] PRN [facility] Stop: 09/12/18 03:55 Miscellaneous (Clinical Monitoring) 1 ea DAILY PRN PRN Reason: RENAL DOSING (MOTRIN) Stop: 09/15/18 13:51 Morphine Sulfate (Morphine) 2 mg IVP Q6H PRN PRN Reason: Severe Pain Stop: 09/12/18 09:51 Ondansetron HCl (Zofran) 4 mg IV Q8H PRN PRN Reason: Nausea / Vomiting Stop: 09/12/18 03:55 Pantoprazole Sodium (Protonix) 40 mg IVP DAILY [facility] Stop: 09/12/18 10:30 Last Admin: 07/18/18 08:19 Dose: 40 mg Potassium Chloride (Klor-Con) 20 meq PO DAILY [facility] Stop: 09/15/18 08:59 Last Admin: 07/18/18 08:17 Dose: 20 meq Tramadol HCl (Ultram) 50 mg PO Q6HR PRN PRN Reason: Pain (Severe) Stop: 09/12/18 16:33 Last Admin: 07/18/18 08:20 Dose: 50 mg Zolpidem Tartrate (Ambien) 10 mg PO HS PRN PRN Reason: Insomnia Stop: 09/12/18 03:55 General: alert HEENT: NC/AT, PERRLA Neck: Supple Lungs: wheezing, ronchi Cardiovascular: RRR, Normal S1, Normal S2, without murmur Abdomen: soft, non-tender, non-distended, positive bowel sound Extremities: other (multiple open sores) Neurological: alert Internal Medicine Assmt/Plan - Assessment Assessment: Bacteremia Group G streptococcus Multiple open sores with Providencia Rettgeri Acute urinary tract infection acute renal failure morbidly obese anemia hypomagnesemia morbid obesity hypertension congestive heart failure asthma chronic obstructive pulmonary disease type 2 diabetes. - Plan Plan: AM labs continue with wound care CM to arrange dc planning to SNF vs LTAC continue iv vanco/zosyn pain mgmt continue current plan of care Nutritional Asmnt/Malnutr-PDOC - Dietary Evaluation Malnutrition Findings (Please click <Entered> for more info): Nutritional Asmnt/Malnutrition Start: 07/17/18 16: 49 Text: Status: Complete Freq: Protocol: Document 07/17/18 16:49 LCHENG (Rec: 07/17/18 17:20 [email or web address]) Nutritional Asmnt/Malnutrition Patient General Information Nutritional Screening Moderate Risk Consult Diagnosis SOB, chest pain Pertinent Medical Hx/Surgical Hx HTN Subjective Information Consult received for BLE venous insufficiency ulcer. Pt seen sitting on chair, awake and alert. Pt asked snacks betoween meals and food preference provided to RD. Discussed with pt about healthy eating. Per EMR, PO intake 75-100%. Current Diet Order/ Nutrition Support cardiac, fluid 1500ml Pertinent Medications lasix, protonix, kcl, piperacillin, vancomycin Pertinent Labs 07/17 BUN 38, Cr 1.6, Glucose 125, Ca 8.4 07/16 Na 132, Na 42, Cr 1.9, Glucose 151, Ca 8.4 Nutritional Hx/Data Height 6 ft 1 in Height (Calculated Centimeters) 185.4 Current Weight (lbs) 399 lb Weight (Calculated Kilograms) 181.0 Weight (Calculated Grams) 199292.4 [place] Body Weight 184 Body Mass Index (BMI) 52.6 Weight Status Morbidly Obese GI Symptoms GI Symptoms None Last BM 07/17 x 2 Difficult in: None Usual diet at home Pt stated he has been following fluid restriction about 1300-1400ml at home. Pt gaind wt d/t life change, eating fast food and longer sitting hours. Pt is ready to make change, increase physical activity and eat healthy food . Skin Integrity/Comment: open wound to right leg, edema to lower extremities. Current %PO Good (75-100%) Estimated Nutritional Goals BEE in Kcals: Adj wt of IBW Calories/Kcals/Kg 20-25 Kcals Calculated 1096-9778 Protein: Adj wt of IBW Protein g/k.8 Protein Calculated 86 Fluid: ml 1500ml per MD Nutritional Problem 1. Problem Problem obese Etiology excessive energy intake and inadequte physical activity Signs/Symptoms: BMI 52.6 Malnutrition Alert Is there a minimum of two criteria No selected? Query Text:Check all the applicable criteria. A minimum of two criteria are recommended for diagnosis of either severe or non-severe malnutrition. Malnutrition Related to Morbid Obesity Malnutrition related to morbid obesity No Intervention/Recommendation Comments 1. Continue with cardiac diet wtih fluid restriction as ordered. Recommend healthy snack choices. discussed with pt about healthy eating and life style. 2. Add Eddie BID for wound healing. 3. Monitor PO intake, wt, labs and skin integrity 4. F/U as moderate risk in 3-5 days Expected Outcomes/Goals Expected Outcomes/Goals 1. PO intake to meet at least 75% of nutritional needs. 2. Wt stability, skin to remain intact, labs to approach WNL.
--- NOTE | 2018-07-18 14:05 | General Progress Note ---
Subjective - Review of Systems Service Date: 07/18/18 Subjective: Patient has less shortness of breath still complaining of swelling both lower extremities and open wound on the right leg Patient feels better patient complained of burning in both the leg Objective - Results Result Diagrams: 07/18/18 04:50 07/18/18 04:50 Recent Labs: Laboratory Last Values WBC 14.6 Th/cmm (4.8-10.8) H 07/18/18 04:50 RBC 4.27 Mil/cmm (4.30-5.70) L 07/18/18 04:50 Hgb 10.6 gm/dL (12-16) L 07/18/18 04:50 Hct 33.1 % (41.0-60) L 07/18/18 04:50 MCV 77.5 fl (80-99) L 07/18/18 04:50 MCH 24.8 pg (26.0-30.0) L 07/18/18 04:50 MCHC Differential 32.0 pg (28.0-36.0) 07/18/18 04:50 RDW 15.9 % (11.5-20.0) 07/18/18 04:50 Plt Count 421 Th/cmm (150-400) H 07/18/18 04:50 MPV 7.5 fl 07/18/18 04:50 Add Manual Diff YES 07/18/18 04:50 Band Neutrophils % 2 % (0-10) 07/18/18 04:50 Neutrophils (Manual) 86 % (40-80) H 07/18/18 04:50 Lymphocytes 6 % (20-50) L 07/18/18 04:50 Monocytes 6 % (2-10) 07/18/18 04:50 Eosinophils 0 % (0-5) 07/15/18 06:35 Basophils 0 % (0-3) 07/16/18 04:40 Platelet Estimate ADEQUATE (NORMAL) 07/18/18 04:50 Sodium 138 mEq/L (136-145) 07/18/18 04:50 Potassium 4.2 mEq/L (3.5-5.1) 07/18/18 04:50 Chloride 105 mEq/L (98-107) 07/18/18 04:50 Carbon Dioxide 24.3 mEq/L (21.0-31.0) 07/18/18 04:50 Anion Gap 12.9 (7.0-16.0) 07/18/18 04:50 BUN 34 mg/dL (7-25) H 07/18/18 04:50 Creatinine 1.4 mg/dL (0.7-1.3) H 07/18/18 04:50 Est GFR ( Amer) > 60.0 ml/min (>90) 07/18/18 04:50 Est GFR (Non-Af Amer) 56.3 ml/min 07/18/18 04:50 BUN/Creatinine Ratio 24.3 07/18/18 04:50 Glucose 139 mg/dL (70-105) H 07/18/18 04:50 Whole Bld Lactic Acid 1.56 mmol/L (0.60-1.99) 07/15/18 15:00 Calcium 8.2 mg/dL (8.6-10.3) L 07/18/18 04:50 Magnesium 2.2 mg/dL (1.9-2.7) 07/15/18 06:35 Total Bilirubin 0.8 mg/dL (0.3-1.0) 07/14/18 00:20 AST 53 U/L (13-39) H 07/14/18 00:20 ALT 62 U/L (7-52) H 07/14/18 00:20 Alkaline Phosphatase 92 U/L (34-104) 07/14/18 00:20 Troponin I 0.12 ng/mL (0.01-0.05) H* D 07/15/18 06:35 B-Natriuretic Peptide 537.0 pg/mL (5.0-100.0) H 07/17/18 07:00 Total Protein 6.4 gm/dL (6.0-8.3) 07/14/18 00:20 Albumin 3.5 gm/dL (4.2-5.5) L 07/14/18 00:20 Globulin 2.9 gm/dL 07/14/18 00:20 Albumin/Globulin Ratio 1.2 (1.0-1.8) 07/14/18 00:20 Triglycerides 48 mg/dL (<150) 07/14/18 00:20 Cholesterol 61 mg/dL (<200) 07/14/18 00:20 LDL Cholesterol Direct 36 mg/dL (75-193) L 07/14/18 00:20 HDL Cholesterol 22 mg/dL (23-92) L 07/14/18 00:20 Vancomycin Trough 27.4 ug/mL (5-10) H 07/17/18 07:00 - Physical Exam Vitals and I&O: Vital Signs Temp 96.9 F 07/18/18 11:38 Pulse 118 07/18/18 13:05 Resp 18 07/18/18 11:38 BP 166/101 07/18/18 13:05 Pulse Ox 99 07/18/18 11:38 Intake & Output 07/17/18 07/18/18 07/18/18 18:59 06:59 18:59 Intake Total 1250 600 500 Output Total 1650 1575 Balance -400 -975 500 Weight (lbs) 180.983 kg 180.983 kg Intake: Intake, IV Amount 600 100 500 Piperacillin Sodium/ 100 100 Tazobact 3.375 gm In Sodium Chloride 0.9% 50 ml @ 100 mls/hr IV Q6HR [facility] [place] Rx#:[id number] Vancomycin HCl 2 gm In 500 500 Sodium Chloride 0.9% 500 ml @ 250 mls/hr IV Q18H [facility] [place] Rx#:[id number] Oral 650 500 Output: Urine 1650 1575 Other: # Voids 6 # Bowel Movements 1 Stool Characteristics Formed [place] Weight Source Bedscale Bedscale Active Medications: Current Medications Acetaminophen (Tylenol) 650 mg PO Q4HR PRN PRN Reason: Mild Pain Or Fever above 101 Stop: 09/12/18 03:55 Last Admin: 07/17/18 12:43 Dose: 650 mg [place] Oil/[place] Balsam/Trypsin (Venelex) 1 appl TP DAILY [facility] [place] Stop: 09/15/18 08:59 Last Admin: 07/18/18 08:23 Dose: 1 appl Diltiazem HCl (Cardizem) 20 mg IVP Q4H PRN PRN Reason: HR Greater than 130 per min Stop: 09/12/18 03:55 Last Admin: 07/14/18 16:22 Dose: 20 mg Diltiazem HCl (Cardizem) 60 mg PO Q6HR [facility] Stop: 09/12/18 17:59 Last Admin: 07/18/18 12:04 Dose: 60 mg Enoxaparin Sodium (Lovenox) 40 mg SUBQ Q12HR [facility] [place] Stop: 09/12/18 08:59 Last Admin: 07/18/18 08:15 Dose: 40 mg Furosemide (Lasix) 40 mg IVP DAILY [facility] [place] Stop: 09/15/18 08:59 Last Admin: 07/18/18 08:19 Dose: 40 mg Guaifenesin (Robitussin) 100 mg PO Q4H PRN PRN Reason: Cough or Congestion Stop: 09/12/18 03:55 Piperacillin Sod/Tazobactam (Sod 3.375 gm/ Sodium Chloride) 50 mls @ 100 mls/ hr IV Q6HR [facility] [place] Stop: 09/12/18 17:59 Last Admin: 07/18/18 12:05 Dose: 100 mls/hr Vancomycin HCl 2 gm/ Sodium (Chloride) 500 mls @ 250 mls/hr IV Q18H [facility] [place] Stop: 09/15/18 13:59 Last Infusion: 07/18/18 10:38 Dose: Infused Ibuprofen (Motrin) 800 mg PO TID PRN PRN Reason: Pain (Moderate) Stop: 09/13/18 16:40 Last Admin: 07/18/18 13:32 Dose: 800 mg Ipratropium [place] (Atrovent Neb 0.5mg/2.5ml) 0.5 mg HHN QIDRT [facility] [place] Stop: 09/12/18 14:59 Last Admin: 07/18/18 11:12 Dose: 0.5 mg Methylprednisolone Sodium Succinate (Solu-Medrol) 20 mg IVP DAILY [facility] [place] Stop: 09/16/18 08:59 Last Admin: 07/18/18 08:19 Dose: 20 mg Miscellaneous (Vancomycin Iv Per Pharmacy) 1 ea MC PRN [facility] [place] Stop: 09/12/18 03:55 Miscellaneous (Clinical Monitoring) 1 ea MC DAILY PRN PRN Reason: RENAL DOSING (MOTRIN) Stop: 09/15/18 13:51 Morphine Sulfate (Morphine) 2 mg IVP Q6H PRN PRN Reason: Severe Pain Stop: 09/12/18 09:51 Ondansetron HCl (Zofran) 4 mg IV Q8H PRN PRN Reason: Nausea / Vomiting Stop: 09/12/18 03:55 Pantoprazole Sodium (Protonix) 40 mg IVP DAILY [facility] [place] Stop: 09/12/18 10:30 Last Admin: 07/18/18 08:19 Dose: 40 mg Potassium Chloride (Klor-Con) 20 meq PO DAILY [facility] Stop: 09/15/18 08:59 Last Admin: 07/18/18 08:17 Dose: 20 meq Tramadol HCl (Ultram) 50 mg PO Q6HR PRN PRN Reason: Pain (Severe) Stop: 09/12/18 16:33 Last Admin: 07/18/18 08:20 Dose: 50 mg Zolpidem Tartrate (Ambien) 10 mg PO HS PRN PRN Reason: Insomnia Stop: 09/12/18 03:55 General: Alert, Mild distress HEENT: Mucous membr. moist/pink Neck: Supple, JVD, +2 carotid pulse wo bruit (10 cm upper sternal angle) Cardiovascular: Regular rate, Systolic murmurs, Other (uncontrolled atrial fibrillation) Abdomen: Bowel sounds, Soft, Obese Neurological: Normal gait, Strength at 5/5 X4 ext, Normal tone, Cranial nerves 3 -12 NL, Reflexes 2+ Skin: Breakdown (both legs) Assessment/Plan - Assessment Assessment: Right lower lobe pneumonia Congestive heart failure diastolic dysfunction and acute Cellulitis right leg Pleural effusion C kidney disease stage III Lactic acidosis Uncontrolled atrial fibrillation Hypertension Protein calorie malnutrition Morbid obesity Lactic acidosis IV antibiotics IV Lasix Echocardiogram WITH mitral regurgitation mild tricuspid regurgitation aortic regurgitation ejection fraction normal - Plan Plan: Start IV Lasix IV antibiotics fluid restriction echocardiogram Patient to have Zaroxolyn Nutritional Asmnt/Malnutr-PDOC - Dietary Evaluation Malnutrition Findings (Please click <Entered> for more info): Nutritional Asmnt/Malnutrition Start: 07/17/18 16: 49 Text: Status: Complete Freq: Protocol: Document 07/17/18 16:49 LCHENG (Rec: 07/17/18 17:20 LCHENG [email or web address]) Nutritional Asmnt/Malnutrition Patient General Information Nutritional Screening Moderate Risk Consult Diagnosis SOB, chest pain Pertinent Medical Hx/Surgical Hx HTN Subjective Information Consult received for BLE venous insufficiency ulcer. Pt seen sitting on chair, awake and alert. Pt asked snacks betoween meals and food preference provided to RD. Discussed with pt about healthy eating. Per EMR, PO intake 75-100%. Current Diet Order/ Nutrition Support cardiac, fluid 1500ml Pertinent Medications lasix, protonix, kcl, piperacillin, vancomycin Pertinent Labs 4/23 BUN 38, Cr 1.6, Glucose 125, Ca 8.4 07/16 Na 132, Na 42, Cr 1.9, Glucose 151, Ca 8.4 Nutritional Hx/Data Height 1.85 m Height (Calculated Centimeters) 185.4 Current Weight (lbs) 180.983 kg Weight (Calculated Kilograms) 181.0 Weight (Calculated Grams) 800034.4 [place] Body Weight 184 Body Mass Index (BMI) 52.6 Weight Status Morbidly Obese GI Symptoms GI Symptoms None Last BM 07/17 x 2 Difficult in: None Usual diet at home Pt stated he has been following fluid restriction about 1300-1400ml at home. Pt gaind wt d/t life change, eating fast food and longer sitting hours. Pt is ready to make change, increase physical activity and eat healthy food . Skin Integrity/Comment: open wound to right leg, edema to lower extremities. Current %PO Good (75-100%) Estimated Nutritional Goals BEE in Kcals: Adj wt of IBW Calories/Kcals/Kg 20-25 Kcals Calculated 7966-9280 Protein: Adj wt of IBW Protein g/k.8 Protein Calculated 86 Fluid: ml 1500ml per MD Nutritional Problem 1. Problem Problem obese Etiology excessive energy intake and inadequte physical activity Signs/Symptoms: BMI 52.6 Malnutrition Alert Is there a minimum of two criteria No selected? Query Text:Check all the applicable criteria. A minimum of two criteria are recommended for diagnosis of either severe or non-severe malnutrition. Malnutrition Related to Morbid Obesity Malnutrition related to morbid obesity No Intervention/Recommendation Comments 1. Continue with cardiac diet wtih fluid restriction as ordered. Recommend healthy snack choices. discussed with pt about healthy eating and life style. 2. Add Eddie BID for wound healing. 3. Monitor PO intake, wt, labs and skin integrity 4. F/U as moderate risk in 3-5 days Expected Outcomes/Goals Expected Outcomes/Goals 1. PO intake to meet at least 75% of nutritional needs. 2. Wt stability, skin to remain intact, labs to approach WNL.
[2018-07-19] MEDS: Diltiazem 30 mg Tab PO SCH ×4 (01:03→17:45)
--- NOTE | 2018-07-19 04:49 | Progress Notes ---
DATE: 07/18/2018 SUBJECTIVE: The patient appears to be doing okay, comfortable, in no distress, breathing better. PHYSICAL EXAMINATION: VITAL SIGNS: Temperature 98.0, pulse 110, respiratory rate 18, blood pressure 160/97, saturation 96%. CHEST: Good breath sounds. No wheezing. Few rhonchi. HEART: Regular rate and rhythm. ABDOMEN: Soft. EXTREMITIES: No edema. LABS: WBC 14.6, hemoglobin 13.6, hematocrit 38.1. Sodium is 138, potassium 4.2, BUN 34, creatinine 1.4. IMPRESSION: 1. Respiratory failure. 2. Congestive heart failure. 3. Peripheral edema. 4. Cellulitis. PLAN: 1. Continue antibiotics. 2. Nebulizer treatment, pulmonary toilet, supportive care, diuresis. Consider LTAC evaluation. JOB# [id number] [email or web address]
[2018-07-19] MEDS: Ipratropium Neb 0.5 mg/2.5 mL UD HHN SCH ×4 (06:57→18:47)
[2018-07-19 07:32] LABS: BUN - UREA NITROGEN 32 mg/dL (7-25); CALCIUM SERUM 8.3 mg/dL (8.6-10.3); CARBON DIOXIDE 27.1 mEq/L (21.0-31.0); CHLORIDE 103 mEq/L (98-107); CREATININE - SERUM 1.3 mg/dL (0.7-1.3); GFR AFRICAN-AMERICAN > 60.0 ml/min (>90); GFR NON AFRICAN-AMERICAN > 60.0 ml/min; GLUCOSE 125 mg/dL (70-105); POTASSIUM SERUM 4.1 mEq/L (3.5-5.1); SODIUM SERUM 140 mEq/L (136-145)
[2018-07-19 07:43] LABS: % BASOPHILS 0.1 % (0.0-2.0); % EOSINOPHILS 0.3 % (0.0-5.0); % MONOCYTES 7.7 % (2.0-10.0); % NEUTROPHILS 79.9 % (40.0-80.0); HEMOGLOBIN 11.9 gm/dL (12-16); LYMPHOCYTE ABSOLUTE 1.8 Th/cmm (1.5-3.0); MEAN CELL VOLUME 77.3 fl (80-99); MEAN CORPUSCULAR HEMOGLOBIN 24.9 pg (26.0-30.0); MEAN CORPUSCULAR HGB CONC 32.2 pg (28.0-36.0); MEAN PLATELET VOLUME 7.5 fl; MONOCYTE ABSOLUTE 1.1 Th/cmm (0.3-1.0); NEUTROPHILE ABSOLUTE 11.9 Th/cmm (1.8-8.0); PLATELET COUNT 446 Th/cmm (150-400); RED BLOOD COUNT 4.79 Mil/cmm (4.30-5.70); RED CELL DISTRIBUTION WIDTH 16.2 % (11.5-20.0); WHITE BLOOD COUNT 14.8 Th/cmm (4.8-10.8)
[2018-07-19] MEDS: Enoxaparin 40 mg/0.4 mL 0.4mL Syr SUBQ SCH ×2 (09:23→22:45)
[2018-07-19] MEDS: methylPREDNISolone SS 40 mg Vial IVP SCH (09:24)
[2018-07-19] MEDS: Potassium Chloride 20 mEq ER Tab PO SCH (09:25)
--- NOTE | 2018-07-19 11:56 | Internal Medicine Prog Note ---
Internal Medicine Subjective - Subjective Service Date: 07/19/18 Patient is:: awake, verbal Patient Complaints of:: other (ble pain) Per staff patient has:: no adverse event, tolerating meds Internal Medicine Objective - Results Result Diagrams: 07/19/18 06:30 07/19/18 06:30 Recent Labs: Laboratory Last Values WBC 14.8 Th/cmm (4.8-10.8) H 07/19/18 06:30 RBC 4.79 Mil/cmm (4.30-5.70) 07/19/18 06:30 Hgb 11.9 gm/dL (12-16) L 07/19/18 06:30 Hct 37.0 % (41.0-60) L 07/19/18 06:30 MCV 77.3 fl (80-99) L 07/19/18 06:30 MCH 24.9 pg (26.0-30.0) L 07/19/18 06:30 MCHC Differential 32.2 pg (28.0-36.0) 07/19/18 06:30 RDW 16.2 % (11.5-20.0) 07/19/18 06:30 Plt Count 446 Th/cmm (150-400) H 07/19/18 06:30 MPV 7.5 fl 07/19/18 06:30 Add Manual Diff YES 07/18/18 04:50 Neutrophils % 79.9 % (40.0-80.0) 07/19/18 06:30 Band Neutrophils % 2 % (0-10) 07/18/18 04:50 Lymphocytes % 12.0 % (20.0-50.0) L 07/19/18 06:30 Monocytes % 7.7 % (2.0-10.0) 07/19/18 06:30 Eosinophils % 0.3 % (0.0-5.0) 07/19/18 06:30 Basophils % 0.1 % (0.0-2.0) 07/19/18 06:30 Neutrophils (Manual) 86 % (40-80) H 07/18/18 04:50 Lymphocytes 6 % (20-50) L 07/18/18 04:50 Monocytes 6 % (2-10) 07/18/18 04:50 Eosinophils 0 % (0-5) 07/15/18 06:35 Basophils 0 % (0-3) 07/16/18 04:40 Platelet Estimate ADEQUATE (NORMAL) 07/18/18 04:50 Sodium 140 mEq/L (136-145) 07/19/18 06:30 Potassium 4.1 mEq/L (3.5-5.1) 07/19/18 06:30 Chloride 103 mEq/L (98-107) 07/19/18 06:30 Carbon Dioxide 27.1 mEq/L (21.0-31.0) 07/19/18 06:30 Anion Gap 14.0 (7.0-16.0) 07/19/18 06:30 BUN 32 mg/dL (7-25) H 07/19/18 06:30 Creatinine 1.3 mg/dL (0.7-1.3) 07/19/18 06:30 Est GFR ( Amer) > 60.0 ml/min (>90) 07/19/18 06:30 Est GFR (Non-Af Amer) > 60.0 ml/min 07/19/18 06:30 BUN/Creatinine Ratio 24.6 07/19/18 06:30 Glucose 125 mg/dL (70-105) H 07/19/18 06:30 Whole Bld Lactic Acid 1.56 mmol/L (0.60-1.99) 07/15/18 15:00 Calcium 8.3 mg/dL (8.6-10.3) L 07/19/18 06:30 Magnesium 2.2 mg/dL (1.9-2.7) 07/15/18 06:35 Total Bilirubin 0.8 mg/dL (0.3-1.0) 07/14/18 00:20 AST 53 U/L (13-39) H 07/14/18 00:20 ALT 62 U/L (7-52) H 07/14/18 00:20 Alkaline Phosphatase 92 U/L (34-104) 07/14/18 00:20 Troponin I 0.12 ng/mL (0.01-0.05) H* D 07/15/18 06:35 B-Natriuretic Peptide 537.0 pg/mL (5.0-100.0) H 07/17/18 07:00 Total Protein 6.4 gm/dL (6.0-8.3) 07/14/18 00:20 Albumin 3.5 gm/dL (4.2-5.5) L 07/14/18 00:20 Globulin 2.9 gm/dL 07/14/18 00:20 Albumin/Globulin Ratio 1.2 (1.0-1.8) 07/14/18 00:20 Triglycerides 48 mg/dL (<150) 07/14/18 00:20 Cholesterol 61 mg/dL (<200) 07/14/18 00:20 LDL Cholesterol Direct 36 mg/dL (75-193) L 07/14/18 00:20 HDL Cholesterol 22 mg/dL (23-92) L 07/14/18 00:20 Vancomycin Trough 27.4 ug/mL (5-10) H 07/17/18 07:00 - Physical Exam Vitals and I&O: Vital Signs Temp 96.5 F 07/19/18 10:11 Pulse 85 07/19/18 11:03 Resp 20 07/19/18 11:03 BP 158/114 07/19/18 10:11 Pulse Ox 96 07/19/18 11:03 Intake & Output 07/18/18 07/19/18 07/19/18 18:59 06:59 18:59 Intake Total 1450 50 Output Total 925 Balance 1450 -875 Weight (lbs) 399 lb 399 lb Intake: Intake, IV Amount 600 50 Piperacillin Sodium/ 100 50 Tazobact 3.375 gm In Sodium Chloride 0.9% 50 ml @ 100 mls/hr IV Q6HR [facility] Rx#:[id number] Vancomycin HCl 2 gm In 500 Sodium Chloride 0.9% 500 ml @ 250 mls/hr IV Q18H [facility] Rx#:[id number] Oral 850 Output: Urine 925 Other: # Voids 10 # Bowel Movements 1 0 Weight Source Bedscale Bedscale Active Medications: Current Medications Acetaminophen (Tylenol) 650 mg PO Q4HR PRN PRN Reason: Mild Pain Or Fever above 101 Stop: 09/12/18 03:55 Last Admin: 07/17/18 12:43 Dose: 650 mg [place] Oil/[place] Balsam/Trypsin (Venelex) 1 appl TP DAILY [facility] Stop: 09/15/18 08:59 Last Admin: 07/18/18 08:23 Dose: 1 appl Diltiazem HCl (Cardizem) 20 mg IVP Q4H PRN PRN Reason: HR Greater than 130 per min Stop: 09/12/18 03:55 Last Admin: 07/14/18 16:22 Dose: 20 mg Diltiazem HCl (Cardizem) 60 mg PO Q6HR [facility] Stop: 09/12/18 17:59 Last Admin: 07/19/18 06:15 Dose: 60 mg Enoxaparin Sodium (Lovenox) 40 mg SUBQ Q12HR [facility] Stop: 09/12/18 08:59 Last Admin: 07/19/18 09:23 Dose: 40 mg Furosemide (Lasix) 40 mg IVP DAILY [facility] Stop: 09/15/18 08:59 Last Admin: 07/19/18 09:24 Dose: 40 mg Guaifenesin (Robitussin) 100 mg PO Q4H PRN PRN Reason: Cough or Congestion Stop: 09/12/18 03:55 Piperacillin Sod/Tazobactam (Sod 3.375 gm/ Sodium Chloride) 50 mls @ 100 mls/ hr IV Q6HR [facility] Stop: 09/12/18 17:59 Last Admin: 07/19/18 06:13 Dose: 100 mls/hr Vancomycin HCl 2 gm/ Sodium (Chloride) 500 mls @ 250 mls/hr IV Q18H [facility] Stop: 09/15/18 13:59 Last Infusion: 07/18/18 10:38 Dose: Infused Ibuprofen (Motrin) 800 mg PO TID PRN PRN Reason: Pain (Moderate) Stop: 09/13/18 16:40 Last Admin: 07/19/18 01:02 Dose: 800 mg Ipratropium [place] (Atrovent Neb 0.5mg/2.5ml) 0.5 mg HHN QIDRT [facility] Stop: 09/12/18 14:59 Last Admin: 07/19/18 11:03 Dose: 0.5 mg Methylprednisolone Sodium Succinate (Solu-Medrol) 20 mg IVP DAILY [facility] Stop: 09/16/18 08:59 Last Admin: 07/19/18 09:24 Dose: 20 mg Miscellaneous (Vancomycin Iv Per Pharmacy) 1 ea PRN [facility] Stop: 09/12/18 03:55 Miscellaneous (Clinical Monitoring) 1 ea DAILY PRN PRN Reason: RENAL DOSING (MOTRIN) Stop: 09/15/18 13:51 Morphine Sulfate (Morphine) 2 mg IVP Q6H PRN PRN Reason: Severe Pain Stop: 09/12/18 09:51 Ondansetron HCl (Zofran) 4 mg IV Q8H PRN PRN Reason: Nausea / Vomiting Stop: 09/12/18 03:55 Pantoprazole Sodium (Protonix) 40 mg IVP DAILY [facility] Stop: 09/12/18 10:30 Last Admin: 07/19/18 09:24 Dose: 40 mg Potassium Chloride (Klor-Con) 20 meq PO DAILY [facility] Stop: 09/15/18 08:59 Last Admin: 07/19/18 09:25 Dose: 20 meq Tramadol HCl (Ultram) 50 mg PO Q6HR PRN PRN Reason: Pain (Severe) Stop: 09/12/18 16:33 Last Admin: 07/18/18 08:20 Dose: 50 mg Zolpidem Tartrate (Ambien) 10 mg PO HS PRN PRN Reason: Insomnia Stop: 09/12/18 03:55 General: alert HEENT: NC/AT, PERRLA Neck: Supple Lungs: wheezing, ronchi Cardiovascular: RRR, Normal S1, Normal S2, without murmur Abdomen: soft, non-tender, non-distended, positive bowel sound Extremities: other (multiple open sores) Neurological: alert Internal Medicine Assmt/Plan - Assessment Assessment: Bacteremia Group G streptococcus Multiple open sores with Providencia Rettgeri Acute urinary tract infection acute renal failure morbidly obese anemia hypomagnesemia morbid obesity hypertension congestive heart failure asthma chronic obstructive pulmonary disease type 2 diabetes. - Plan Plan: AM labs continue with wound care CM to arrange dc planning to SNF vs LTAC continue iv vanco/zosyn pain mgmt continue current plan of care Nutritional Asmnt/Malnutr-PDOC - Dietary Evaluation Malnutrition Findings (Please click <Entered> for more info): Nutritional Asmnt/Malnutrition Start: 07/17/18 16: 49 Text: Status: Complete Freq: Protocol: Document 07/17/18 16:49 LCHENG (Rec: 07/17/18 17:20 LCLUCIANG [email or web address]) Nutritional Asmnt/Malnutrition Patient General Information Nutritional Screening Moderate Risk Consult Diagnosis SOB, chest pain Pertinent Medical Hx/Surgical Hx HTN Subjective Information Consult received for BLE venous insufficiency ulcer. Pt seen sitting on chair, awake and alert. Pt asked snacks betoween meals and food preference provided to RD. Discussed with pt about healthy eating. Per EMR, PO intake 75-100%. Current Diet Order/ Nutrition Support cardiac, fluid 1500ml Pertinent Medications lasix, protonix, kcl, piperacillin, vancomycin Pertinent Labs 07/17 BUN 38, Cr 1.6, Glucose 125, Ca 8.4 07/16 Na 132, Na 42, Cr 1.9, Glucose 151, Ca 8.4 Nutritional Hx/Data Height 6 ft 1 in Height (Calculated Centimeters) 185.4 Current Weight (lbs) 399 lb Weight (Calculated Kilograms) 181.0 Weight (Calculated Grams) 639790.4 [place] Body Weight 184 Body Mass Index (BMI) 52.6 Weight Status Morbidly Obese GI Symptoms GI Symptoms None Last BM 07/17 x 2 Difficult in: None Usual diet at home Pt stated he has been following fluid restriction about 1300-1400ml at home. Pt gaind wt d/t life change, eating fast food and longer sitting hours. Pt is ready to make change, increase physical activity and eat healthy food . Skin Integrity/Comment: open wound to right leg, edema to lower extremities. Current %PO Good (75-100%) Estimated Nutritional Goals BEE in Kcals: Adj wt of IBW Calories/Kcals/Kg 20-25 Kcals Calculated 0143-4256 Protein: Adj wt of IBW Protein g/k.8 Protein Calculated 86 Fluid: ml 1500ml per MD Nutritional Problem 1. Problem Problem obese Etiology excessive energy intake and inadequte physical activity Signs/Symptoms: BMI 52.6 Malnutrition Alert Is there a minimum of two criteria No selected? Query Text:Check all the applicable criteria. A minimum of two criteria are recommended for diagnosis of either severe or non-severe malnutrition. Malnutrition Related to Morbid Obesity Malnutrition related to morbid obesity No Intervention/Recommendation Comments 1. Continue with cardiac diet wtih fluid restriction as ordered. Recommend healthy snack choices. discussed with pt about healthy eating and life style. 2. Add Eddie BID for wound healing. 3. Monitor PO intake, wt, labs and skin integrity 4. F/U as moderate risk in 3-5 days Expected Outcomes/Goals Expected Outcomes/Goals 1. PO intake to meet at least 75% of nutritional needs. 2. Wt stability, skin to remain intact, labs to approach WNL.
--- NOTE | 2018-07-19 12:31 | General Progress Note ---
Subjective - Review of Systems Service Date: 07/19/18 Subjective: Patient has less shortness of breath still complaining of swelling both lower extremities and open wound on the right leg Patient feels better patient complained of burning in both the leg Objective - Results Result Diagrams: 07/19/18 06:30 07/19/18 06:30 Recent Labs: Laboratory Last Values WBC 14.8 Th/cmm (4.8-10.8) H 07/19/18 06:30 RBC 4.79 Mil/cmm (4.30-5.70) 07/19/18 06:30 Hgb 11.9 gm/dL (12-16) L 07/19/18 06:30 Hct 37.0 % (41.0-60) L 07/19/18 06:30 MCV 77.3 fl (80-99) L 07/19/18 06:30 MCH 24.9 pg (26.0-30.0) L 07/19/18 06:30 MCHC Differential 32.2 pg (28.0-36.0) 07/19/18 06:30 RDW 16.2 % (11.5-20.0) 07/19/18 06:30 Plt Count 446 Th/cmm (150-400) H 07/19/18 06:30 MPV 7.5 fl 07/19/18 06:30 Add Manual Diff YES 07/18/18 04:50 Neutrophils % 79.9 % (40.0-80.0) 07/19/18 06:30 Band Neutrophils % 2 % (0-10) 07/18/18 04:50 Lymphocytes % 12.0 % (20.0-50.0) L 07/19/18 06:30 Monocytes % 7.7 % (2.0-10.0) 07/19/18 06:30 Eosinophils % 0.3 % (0.0-5.0) 07/19/18 06:30 Basophils % 0.1 % (0.0-2.0) 07/19/18 06:30 Neutrophils (Manual) 86 % (40-80) H 07/18/18 04:50 Lymphocytes 6 % (20-50) L 07/18/18 04:50 Monocytes 6 % (2-10) 07/18/18 04:50 Eosinophils 0 % (0-5) 07/15/18 06:35 Basophils 0 % (0-3) 07/16/18 04:40 Platelet Estimate ADEQUATE (NORMAL) 07/18/18 04:50 Sodium 140 mEq/L (136-145) 07/19/18 06:30 Potassium 4.1 mEq/L (3.5-5.1) 07/19/18 06:30 Chloride 103 mEq/L (98-107) 07/19/18 06:30 Carbon Dioxide 27.1 mEq/L (21.0-31.0) 07/19/18 06:30 Anion Gap 14.0 (7.0-16.0) 07/19/18 06:30 BUN 32 mg/dL (7-25) H 07/19/18 06:30 Creatinine 1.3 mg/dL (0.7-1.3) 07/19/18 06:30 Est GFR ( Amer) > 60.0 ml/min (>90) 07/19/18 06:30 Est GFR (Non-Af Amer) > 60.0 ml/min 07/19/18 06:30 BUN/Creatinine Ratio 24.6 07/19/18 06:30 Glucose 125 mg/dL (70-105) H 07/19/18 06:30 Whole Bld Lactic Acid 1.56 mmol/L (0.60-1.99) 07/15/18 15:00 Calcium 8.3 mg/dL (8.6-10.3) L 07/19/18 06:30 Magnesium 2.2 mg/dL (1.9-2.7) 07/15/18 06:35 Total Bilirubin 0.8 mg/dL (0.3-1.0) 07/14/18 00:20 AST 53 U/L (13-39) H 07/14/18 00:20 ALT 62 U/L (7-52) H 07/14/18 00:20 Alkaline Phosphatase 92 U/L (34-104) 07/14/18 00:20 Troponin I 0.12 ng/mL (0.01-0.05) H* D 07/15/18 06:35 B-Natriuretic Peptide 537.0 pg/mL (5.0-100.0) H 07/17/18 07:00 Total Protein 6.4 gm/dL (6.0-8.3) 07/14/18 00:20 Albumin 3.5 gm/dL (4.2-5.5) L 07/14/18 00:20 Globulin 2.9 gm/dL 07/14/18 00:20 Albumin/Globulin Ratio 1.2 (1.0-1.8) 07/14/18 00:20 Triglycerides 48 mg/dL (<150) 07/14/18 00:20 Cholesterol 61 mg/dL (<200) 07/14/18 00:20 LDL Cholesterol Direct 36 mg/dL (75-193) L 07/14/18 00:20 HDL Cholesterol 22 mg/dL (23-92) L 07/14/18 00:20 Vancomycin Trough 27.4 ug/mL (5-10) H 07/17/18 07:00 - Physical Exam Vitals and I&O: Vital Signs Temp 96.5 F 07/19/18 10:11 Pulse 85 07/19/18 11:03 Resp 20 07/19/18 11:03 BP 158/114 07/19/18 10:11 Pulse Ox 96 07/19/18 11:03 Intake & Output 07/18/18 07/19/18 07/19/18 18:59 06:59 18:59 Intake Total 1450 50 Output Total 925 Balance 1450 -875 Weight (lbs) 180.983 kg 180.983 kg Intake: Intake, IV Amount 600 50 Piperacillin Sodium/ 100 50 Tazobact 3.375 gm In Sodium Chloride 0.9% 50 ml @ 100 mls/hr IV Q6HR [facility] Rx#:[id number] Vancomycin HCl 2 gm In 500 Sodium Chloride 0.9% 500 ml @ 250 mls/hr IV Q18H [facility] Rx#:[id number] Oral 850 Output: Urine 925 Other: # Voids 10 # Bowel Movements 1 0 Weight Source Bedscale Bedscale Active Medications: Current Medications Acetaminophen (Tylenol) 650 mg PO Q4HR PRN PRN Reason: Mild Pain Or Fever above 101 Stop: 09/12/18 03:55 Last Admin: 07/17/18 12:43 Dose: 650 mg [place] Oil/[place] Balsam/Trypsin (Venelex) 1 appl TP DAILY [facility] Stop: 09/15/18 08:59 Last Admin: 07/18/18 08:23 Dose: 1 appl Diltiazem HCl (Cardizem) 20 mg IVP Q4H PRN PRN Reason: HR Greater than 130 per min Stop: 09/12/18 03:55 Last Admin: 07/14/18 16:22 Dose: 20 mg Diltiazem HCl (Cardizem) 60 mg PO Q6HR [facility] Stop: 09/12/18 17:59 Last Admin: 07/19/18 06:15 Dose: 60 mg Enoxaparin Sodium (Lovenox) 40 mg SUBQ Q12HR [facility] Stop: 09/12/18 08:59 Last Admin: 07/19/18 09:23 Dose: 40 mg Furosemide (Lasix) 40 mg IVP DAILY [facility] Stop: 09/15/18 08:59 Last Admin: 07/19/18 09:24 Dose: 40 mg Guaifenesin (Robitussin) 100 mg PO Q4H PRN PRN Reason: Cough or Congestion Stop: 09/12/18 03:55 Piperacillin Sod/Tazobactam (Sod 3.375 gm/ Sodium Chloride) 50 mls @ 100 mls/ hr IV Q6HR [facility] Stop: 09/12/18 17:59 Last Admin: 07/19/18 06:13 Dose: 100 mls/hr Vancomycin HCl 2 gm/ Sodium (Chloride) 500 mls @ 250 mls/hr IV Q18H [facility] Stop: 09/15/18 13:59 Last Infusion: 07/18/18 10:38 Dose: Infused Ibuprofen (Motrin) 800 mg PO TID PRN PRN Reason: Pain (Moderate) Stop: 09/13/18 16:40 Last Admin: 07/19/18 01:02 Dose: 800 mg Ipratropium [place] (Atrovent Neb 0.5mg/2.5ml) 0.5 mg HHN QIDRT [facility] Stop: 09/12/18 14:59 Last Admin: 07/19/18 11:03 Dose: 0.5 mg Methylprednisolone Sodium Succinate (Solu-Medrol) 20 mg IVP DAILY [facility] Stop: 09/16/18 08:59 Last Admin: 07/19/18 09:24 Dose: 20 mg Miscellaneous (Vancomycin Iv Per Pharmacy) 1 ea PRN [facility] Stop: 09/12/18 03:55 Miscellaneous (Clinical Monitoring) 1 ea DAILY PRN PRN Reason: RENAL DOSING (MOTRIN) Stop: 09/15/18 13:51 Morphine Sulfate (Morphine) 2 mg IVP Q6H PRN PRN Reason: Severe Pain Stop: 09/12/18 09:51 Ondansetron HCl (Zofran) 4 mg IV Q8H PRN PRN Reason: Nausea / Vomiting Stop: 09/12/18 03:55 Pantoprazole Sodium (Protonix) 40 mg IVP DAILY [facility] Stop: 09/12/18 10:30 Last Admin: 07/19/18 09:24 Dose: 40 mg Potassium Chloride (Klor-Con) 20 meq PO DAILY [facility] Stop: 09/15/18 08:59 Last Admin: 07/19/18 09:25 Dose: 20 meq Tramadol HCl (Ultram) 50 mg PO Q6HR PRN PRN Reason: Pain (Severe) Stop: 09/12/18 16:33 Last Admin: 07/18/18 08:20 Dose: 50 mg Zolpidem Tartrate (Ambien) 10 mg PO HS PRN PRN Reason: Insomnia Stop: 09/12/18 03:55 General: Alert, Mild distress HEENT: Mucous membr. moist/pink Neck: Supple, JVD, +2 carotid pulse wo bruit (10 cm upper sternal angle) Cardiovascular: Regular rate, Systolic murmurs, Other (uncontrolled atrial fibrillation) Abdomen: Bowel sounds, Soft, Obese Neurological: Normal gait, Strength at 5/5 X4 ext, Normal tone, Cranial nerves 3 -12 NL, Reflexes 2+ Skin: Breakdown (both legs) Assessment/Plan - Assessment Assessment: Right lower lobe pneumonia Congestive heart failure diastolic dysfunction and acute Cellulitis right leg Pleural effusion C kidney disease stage III Lactic acidosis Uncontrolled atrial fibrillation Hypertension Protein calorie malnutrition Morbid obesity Lactic acidosis IV antibiotics IV Lasix Echocardiogram WITH mitral regurgitation mild tricuspid regurgitation aortic regurgitation ejection fraction normal - Plan Plan: Start IV Lasix IV antibiotics fluid restriction echocardiogram Patient to have Zaroxolyn Nutritional Asmnt/Malnutr-PDOC - Dietary Evaluation Malnutrition Findings (Please click <Entered> for more info): Nutritional Asmnt/Malnutrition Start: 07/17/18 16: 49 Text: Status: Complete Freq: Protocol: Document 07/17/18 16:49 MEDARDO (Rec: 07/17/18 17:20 [facility]ARDO [facility]) Nutritional Asmnt/Malnutrition Patient General Information Nutritional Screening Moderate Risk Consult Diagnosis SOB, chest pain Pertinent Medical Hx/Surgical Hx HTN Subjective Information Consult received for BLE venous insufficiency ulcer. Pt seen sitting on chair, awake and alert. Pt asked snacks betoween meals and food preference provided to RD. Discussed with pt about healthy eating. Per EMR, PO intake 75-100%. Current Diet Order/ Nutrition Support cardiac, fluid 1500ml Pertinent Medications lasix, protonix, kcl, piperacillin, vancomycin Pertinent Labs 07/17 BUN 38, Cr 1.6, Glucose 125, Ca 8.4 07/16 Na 132, Na 42, Cr 1.9, Glucose 151, Ca 8.4 Nutritional Hx/Data Height 1.85 m Height (Calculated Centimeters) 185.4 Current Weight (lbs) 180.983 kg Weight (Calculated Kilograms) 181.0 Weight (Calculated Grams) 773641.4 [place] Body Weight 184 Body Mass Index (BMI) 52.6 Weight Status Morbidly Obese GI Symptoms GI Symptoms None Last BM 07/17 x 2 Difficult in: None Usual diet at home Pt stated he has been following fluid restriction about 1300-1400ml at home. Pt gaind wt d/t life change, eating fast food and longer sitting hours. Pt is ready to make change, increase physical activity and eat healthy food . Skin Integrity/Comment: open wound to right leg, edema to lower extremities. Current %PO Good (75-100%) Estimated Nutritional Goals BEE in Kcals: Adj wt of IBW Calories/Kcals/Kg 20-25 Kcals Calculated 4144-9297 Protein: Adj wt of IBW Protein g/k.8 Protein Calculated 86 Fluid: ml 1500ml per MD Nutritional Problem 1. Problem Problem obese Etiology excessive energy intake and inadequte physical activity Signs/Symptoms: BMI 52.6 Malnutrition Alert Is there a minimum of two criteria No selected? Query Text:Check all the applicable criteria. A minimum of two criteria are recommended for diagnosis of either severe or non-severe malnutrition. Malnutrition Related to Morbid Obesity Malnutrition related to morbid obesity No Intervention/Recommendation Comments 1. Continue with cardiac diet wtih fluid restriction as ordered. Recommend healthy snack choices. discussed with pt about healthy eating and life style. 2. Add Eddie BID for wound healing. 3. Monitor PO intake, wt, labs and skin integrity 4. F/U as moderate risk in 3-5 days Expected Outcomes/Goals Expected Outcomes/Goals 1. PO intake to meet at least 75% of nutritional needs. 2. Wt stability, skin to remain intact, labs to approach WNL.
[2018-07-19] MEDS: Venelex 60gm Tube TP SCH (17:00)
[2018-07-19] MEDS: Budesonide 0.5 Mg/2 mL Ud HHN SCH (18:47)
[2018-07-20] MEDS: Diltiazem 30 mg Tab PO SCH ×5 (00:08→23:32)
[2018-07-20] MEDS: Budesonide 0.5 Mg/2 mL Ud HHN SCH ×2 (06:55→19:51)
[2018-07-20] MEDS: Ipratropium Neb 0.5 mg/2.5 mL UD HHN SCH ×4 (06:55→19:51)
[2018-07-20 07:11] LABS: % BASOPHILS 0.2 % (0.0-2.0); % EOSINOPHILS 0.8 % (0.0-5.0); EOSINOPHILE ABSOLUTE 0.1 Th/cmm (0.1-0.4); HEMATOCRIT 37.7 % (41.0-60); LYMPHOCYTE ABSOLUTE 2.4 Th/cmm (1.5-3.0); MEAN CELL VOLUME 77.9 fl (80-99); MEAN CORPUSCULAR HEMOGLOBIN 24.7 pg (26.0-30.0); MEAN CORPUSCULAR HGB CONC 31.7 pg (28.0-36.0); MEAN PLATELET VOLUME 7.6 fl; MONOCYTE ABSOLUTE 1.4 Th/cmm (0.3-1.0); NEUTROPHILE ABSOLUTE 12.2 Th/cmm (1.8-8.0); PLATELET COUNT 458 Th/cmm (150-400); RED BLOOD COUNT 4.85 Mil/cmm (4.30-5.70); RED CELL DISTRIBUTION WIDTH 15.9 % (11.5-20.0)
[2018-07-20 07:23] LABS: ANION GAP 12.6 (7.0-16.0); BUN - UREA NITROGEN 32 mg/dL (7-25); CALCIUM SERUM 8.3 mg/dL (8.6-10.3); CARBON DIOXIDE 28.5 mEq/L (21.0-31.0); CHLORIDE 102 mEq/L (98-107); CREATININE - SERUM 1.4 mg/dL (0.7-1.3); GFR AFRICAN-AMERICAN > 60.0 ml/min (>90); GFR NON AFRICAN-AMERICAN 56.3 ml/min; GLUCOSE 103 mg/dL (70-105); POTASSIUM SERUM 4.1 mEq/L (3.5-5.1); SODIUM SERUM 139 mEq/L (136-145)
--- NOTE | 2018-07-20 07:47 | Progress Notes ---
DATE: 07/19/2018 SUBJECTIVE: The patient appears to be doing okay. He said he was having some shortness of breath on and off, takes oxygen. OBJECTIVE: VITAL SIGNS: Temperature 97.4, pulse 110, respirations 20, blood pressure 142/73, saturation 97% O2. CHEST: Good breath sounds. No wheezing or crackles. HEART: Regular rate and rhythm. ABDOMEN: Soft. EXTREMITIES: Show 1+ edema and some erythema. LABORATORY DATA: WBC is 14.8, platelets 446. potassium 3.1, BUN 33, creatinine 1.3. IMPRESSION: 1. Respiratory failure. 2. bronchospasm 3. Cellulitis. 4. Obesity. 5. Obstructive sleep apnea syndrome. PLAN: 1. Continue nebulizer. 2. Add Pulmicort. 3. Oxygen supplementation. 4. Followup chest x-ray. JOB# [id number] MTDD
[2018-07-20 08:27] LABS: WHITE BLOOD COUNT 16.1 Th/cmm (4.8-10.8)
[2018-07-20 08:41] LABS: LYMPHOCYTE 12 % (20-50); MONOCYTE 9 % (2-10); NEUTROPHILS 79 % (40-80); PLATELET ESTIMATE ADEQUATE (NORMAL)
--- NOTE | 2018-07-20 08:45 | Diagnostic Imaging Report ---
Portable chest x-ray HISTORY: Shortness of breath The heart is enlarged. No acute focal pulmonary parenchymal processes are seen. No hilar or mediastinal abnormalities. IMPRESSION: 1. No acute focal pulmonary processes 2. Cardiomegaly
[2018-07-20] MEDS: Potassium Chloride 20 mEq ER Tab PO SCH (09:32)
[2018-07-20] MEDS: Enoxaparin 40 mg/0.4 mL 0.4mL Syr SUBQ SCH ×2 (09:32→20:35)
[2018-07-20] MEDS: methylPREDNISolone SS 40 mg Vial IVP SCH (09:33)
[2018-07-20] MEDS: Venelex 60gm Tube TP SCH (11:12)
--- NOTE | 2018-07-20 13:16 | Internal Medicine Prog Note ---
Internal Medicine Subjective - Subjective Service Date: 07/20/18 (frustrated wants to go home, explained to patient importance of staying in the hospital) Patient is:: awake, verbal Patient Complaints of:: other (ble pain) Per staff patient has:: no adverse event, tolerating meds Internal Medicine Objective - Results Result Diagrams: 07/20/18 06:40 07/20/18 06:40 Recent Labs: Laboratory Last Values WBC 16.1 Th/cmm (4.8-10.8) H 07/20/18 06:40 RBC 4.85 Mil/cmm (4.30-5.70) 07/20/18 06:40 Hgb 12.0 gm/dL (12-16) 07/20/18 06:40 Hct 37.7 % (41.0-60) L 07/20/18 06:40 MCV 77.9 fl (80-99) L 07/20/18 06:40 MCH 24.7 pg (26.0-30.0) L 07/20/18 06:40 MCHC Differential 31.7 pg (28.0-36.0) 07/20/18 06:40 RDW 15.9 % (11.5-20.0) 07/20/18 06:40 Plt Count 458 Th/cmm (150-400) H 07/20/18 06:40 MPV 7.6 fl 07/20/18 06:40 Add Manual Diff YES 07/20/18 06:40 Neutrophils % 75.0 % (40.0-80.0) 07/20/18 06:40 Band Neutrophils % 2 % (0-10) 07/18/18 04:50 Lymphocytes % 15.0 % (20.0-50.0) L 07/20/18 06:40 Monocytes % 9.0 % (2.0-10.0) 07/20/18 06:40 Eosinophils % 0.8 % (0.0-5.0) 07/20/18 06:40 Basophils % 0.2 % (0.0-2.0) 07/20/18 06:40 Neutrophils (Manual) 79 % (40-80) 07/20/18 06:40 Lymphocytes 12 % (20-50) L 07/20/18 06:40 Monocytes 9 % (2-10) 07/20/18 06:40 Eosinophils 0 % (0-5) 07/15/18 06:35 Basophils 0 % (0-3) 07/16/18 04:40 Platelet Estimate ADEQUATE (NORMAL) 07/20/18 06:40 Sodium 139 mEq/L (136-145) 07/20/18 06:40 Potassium 4.1 mEq/L (3.5-5.1) 07/20/18 06:40 Chloride 102 mEq/L (98-107) 07/20/18 06:40 Carbon Dioxide 28.5 mEq/L (21.0-31.0) 07/20/18 06:40 Anion Gap 12.6 (7.0-16.0) 07/20/18 06:40 BUN 32 mg/dL (7-25) H 07/20/18 06:40 Creatinine 1.4 mg/dL (0.7-1.3) H 07/20/18 06:40 Est GFR ( Amer) > 60.0 ml/min (>90) 07/20/18 06:40 Est GFR (Non-Af Amer) 56.3 ml/min 07/20/18 06:40 BUN/Creatinine Ratio 22.9 07/20/18 06:40 Glucose 103 mg/dL (70-105) 07/20/18 06:40 Whole Bld Lactic Acid 1.56 mmol/L (0.60-1.99) 07/15/18 15:00 Calcium 8.3 mg/dL (8.6-10.3) L 07/20/18 06:40 Magnesium 2.2 mg/dL (1.9-2.7) 07/15/18 06:35 Total Bilirubin 0.8 mg/dL (0.3-1.0) 07/14/18 00:20 AST 53 U/L (13-39) H 07/14/18 00:20 ALT 62 U/L (7-52) H 07/14/18 00:20 Alkaline Phosphatase 92 U/L (34-104) 07/14/18 00:20 Troponin I 0.12 ng/mL (0.01-0.05) H* D 07/15/18 06:35 B-Natriuretic Peptide 537.0 pg/mL (5.0-100.0) H 07/17/18 07:00 Total Protein 6.4 gm/dL (6.0-8.3) 07/14/18 00:20 Albumin 3.5 gm/dL (4.2-5.5) L 07/14/18 00:20 Globulin 2.9 gm/dL 07/14/18 00:20 Albumin/Globulin Ratio 1.2 (1.0-1.8) 07/14/18 00:20 Triglycerides 48 mg/dL (<150) 07/14/18 00:20 Cholesterol 61 mg/dL (<200) 07/14/18 00:20 LDL Cholesterol Direct 36 mg/dL (75-193) L 07/14/18 00:20 HDL Cholesterol 22 mg/dL (23-92) L 07/14/18 00:20 Vancomycin Trough 9.2 ug/mL (5-10) 07/19/18 19:00 - Physical Exam Vitals and I&O: Vital Signs Temp 97.3 F 07/20/18 08:00 Pulse 90 07/20/18 12:29 Resp 20 07/20/18 10:47 BP 169/114 07/20/18 09:32 Pulse Ox 96 07/20/18 10:47 Intake & Output 07/19/18 07/20/18 07/20/18 18:59 06:59 18:59 Intake Total 900 950 Output Total 1000 Balance -100 950 Weight (lbs) 391 lb 391 lb Intake: Intake, IV Amount 100 650 Piperacillin Sodium/ 100 150 Tazobact 3.375 gm In Sodium Chloride 0.9% 50 ml @ 100 mls/hr IV Q6HR [facility] Rx#:[id number] Vancomycin HCl 2 gm In 500 Sodium Chloride 0.9% 500 ml @ 250 mls/hr IV Q18H [facility] Rx#:[id number] Oral 800 300 Output: Urine 1000 Other: # Voids 2 Weight Source Bedscale Bedscale Active Medications: Current Medications Acetaminophen (Tylenol) 650 mg PO Q4HR PRN PRN Reason: Mild Pain Or Fever above 101 Stop: 09/12/18 03:55 Last Admin: 07/17/18 12:43 Dose: 650 mg Budesonide (Pulmicort) 0.5 mg HHN BIDRT [facility] Stop: 09/17/18 18:59 Last Admin: 07/20/18 06:55 Dose: 0.5 mg [place] Oil/[place] Balsam/Trypsin (Venelex) 1 appl TP DAILY [facility] Stop: 09/15/18 08:59 Last Admin: 07/20/18 11:12 Dose: 1 appl Diltiazem HCl (Cardizem) 20 mg IVP Q4H PRN PRN Reason: HR Greater than 130 per min Stop: 09/12/18 03:55 Last Admin: 07/14/18 16:22 Dose: 20 mg Diltiazem HCl (Cardizem) 60 mg PO Q6HR [facility] Stop: 09/12/18 17:59 Last Admin: 07/20/18 12:29 Dose: 60 mg Enoxaparin Sodium (Lovenox) 40 mg SUBQ Q12HR [facility] Stop: 09/12/18 08:59 Last Admin: 07/20/18 09:32 Dose: 40 mg Furosemide (Lasix) 40 mg IVP DAILY [facility] Stop: 09/15/18 08:59 Last Admin: 07/20/18 09:32 Dose: 40 mg Guaifenesin (Robitussin) 100 mg PO Q4H PRN PRN Reason: Cough or Congestion Stop: 09/12/18 03:55 Piperacillin Sod/Tazobactam (Sod 3.375 gm/ Sodium Chloride) 50 mls @ 100 mls/ hr IV Q6HR [facility] Stop: 09/12/18 17:59 Last Admin: 07/20/18 11:12 Dose: 100 mls/hr Vancomycin HCl 2 gm/ Sodium (Chloride) 500 mls @ 250 mls/hr IV Q18H [facility] Stop: 09/15/18 13:59 Last Admin: 07/20/18 13:05 Dose: 250 mls/hr Ibuprofen (Motrin) 800 mg PO TID PRN PRN Reason: Pain (Moderate) Stop: 09/13/18 16:40 Last Admin: 07/19/18 19:52 Dose: 800 mg Ipratropium [place] (Atrovent Neb 0.5mg/2.5ml) 0.5 mg HHN QIDRT [facility] Stop: 09/12/18 14:59 Last Admin: 07/20/18 10:47 Dose: 0.5 mg Methylprednisolone Sodium Succinate (Solu-Medrol) 20 mg IVP DAILY [facility] Stop: 09/16/18 08:59 Last Admin: 07/20/18 09:33 Dose: 20 mg Miscellaneous (Clinical Monitoring) 1 ea MC DAILY PRN PRN Reason: RENAL DOSING (MOTRIN) Stop: 09/15/18 13:51 Morphine Sulfate (Morphine) 2 mg IVP Q6H PRN PRN Reason: Severe Pain Stop: 09/12/18 09:51 Ondansetron HCl (Zofran) 4 mg IV Q8H PRN PRN Reason: Nausea / Vomiting Stop: 09/12/18 03:55 Pantoprazole Sodium (Protonix) 40 mg IVP DAILY [facility] Stop: 09/12/18 10:30 Last Admin: 07/20/18 09:33 Dose: 40 mg Potassium Chloride (Klor-Con) 20 meq PO DAILY [facility] Stop: 09/15/18 08:59 Last Admin: 07/20/18 09:32 Dose: 20 meq Tramadol HCl (Ultram) 50 mg PO Q6HR PRN PRN Reason: Pain (Severe) Stop: 09/12/18 16:33 Last Admin: 07/20/18 00:16 Dose: 50 mg Zolpidem Tartrate (Ambien) 10 mg PO HS PRN PRN Reason: Insomnia Stop: 09/12/18 03:55 General: alert HEENT: NC/AT, PERRLA Neck: Supple Lungs: wheezing, ronchi Cardiovascular: RRR, Normal S1, Normal S2, without murmur Abdomen: soft, non-tender, non-distended, positive bowel sound Extremities: other (multiple open sores) Neurological: alert Internal Medicine Assmt/Plan - Assessment Assessment: Bacteremia Group G streptococcus Multiple open sores with Providencia Rettgeri Acute urinary tract infection acute renal failure morbidly obese anemia hypomagnesemia morbid obesity hypertension congestive heart failure asthma chronic obstructive pulmonary disease type 2 diabetes. - Plan Plan: AM labs continue with wound care CM to arrange dc planning to SNF vs LTAC continue iv vanco/zosyn pain mgmt continue current plan of care Nutritional Asmnt/Malnutr-PDOC - Dietary Evaluation Malnutrition Findings (Please click <Entered> for more info): Nutritional Asmnt/Malnutrition Start: 07/17/18 16: 49 Text: Status: Complete Freq: Protocol: Document 07/17/18 16:49 MEDARDO (Rec: 07/17/18 17:20 [facility]O [id number]) Nutritional Asmnt/Malnutrition Patient General Information Nutritional Screening Moderate Risk Consult Diagnosis SOB, chest pain Pertinent Medical Hx/Surgical Hx HTN Subjective Information Consult received for BLE venous insufficiency ulcer. Pt seen sitting on chair, awake and alert. Pt asked snacks betoween meals and food preference provided to RD. Discussed with pt about healthy eating. Per EMR, PO intake 75-100%. Current Diet Order/ Nutrition Support cardiac, fluid 1500ml Pertinent Medications lasix, protonix, kcl, piperacillin, vancomycin Pertinent Labs 07/17 BUN 38, Cr 1.6, Glucose 125, Ca 8.4 07/16 Na 132, Na 42, Cr 1.9, Glucose 151, Ca 8.4 Nutritional Hx/Data Height 6 ft 1 in Height (Calculated Centimeters) 185.4 Current Weight (lbs) 399 lb Weight (Calculated Kilograms) 181.0 Weight (Calculated Grams) 116146.4 [place] Body Weight 184 Body Mass Index (BMI) 52.6 Weight Status Morbidly Obese GI Symptoms GI Symptoms None Last BM 07/17 x 2 Difficult in: None Usual diet at home Pt stated he has been following fluid restriction about 1300-1400ml at home. Pt gaind wt d/t life change, eating fast food and longer sitting hours. Pt is ready to make change, increase physical activity and eat healthy food . Skin Integrity/Comment: open wound to right leg, edema to lower extremities. Current %PO Good (75-100%) Estimated Nutritional Goals BEE in Kcals: Adj wt of IBW Calories/Kcals/Kg 20-25 Kcals Calculated 2360-0277 Protein: Adj wt of IBW Protein g/k.8 Protein Calculated 86 Fluid: ml 1500ml per MD Nutritional Problem 1. Problem Problem obese Etiology excessive energy intake and inadequte physical activity Signs/Symptoms: BMI 52.6 Malnutrition Alert Is there a minimum of two criteria No selected? Query Text:Check all the applicable criteria. A minimum of two criteria are recommended for diagnosis of either severe or non-severe malnutrition. Malnutrition Related to Morbid Obesity Malnutrition related to morbid obesity No Intervention/Recommendation Comments 1. Continue with cardiac diet wtih fluid restriction as ordered. Recommend healthy snack choices. discussed with pt about healthy eating and life style. 2. Add Eddie BID for wound healing. 3. Monitor PO intake, wt, labs and skin integrity 4. F/U as moderate risk in 3-5 days Expected Outcomes/Goals Expected Outcomes/Goals 1. PO intake to meet at least 75% of nutritional needs. 2. Wt stability, skin to remain intact, labs to approach WNL.
--- NOTE | 2018-07-20 15:37 | General Progress Note ---
Subjective - Review of Systems Service Date: 07/20/18 Subjective: Patient has less shortness of breath still complaining of swelling both lower extremities and open wound on the right leg Patient feels better patient complained of burning in both the leg Objective - Results Result Diagrams: 07/20/18 06:40 07/20/18 06:40 Recent Labs: Laboratory Last Values WBC 16.1 Th/cmm (4.8-10.8) H 07/20/18 06:40 RBC 4.85 Mil/cmm (4.30-5.70) 07/20/18 06:40 Hgb 12.0 gm/dL (12-16) 07/20/18 06:40 Hct 37.7 % (41.0-60) L 07/20/18 06:40 MCV 77.9 fl (80-99) L 07/20/18 06:40 MCH 24.7 pg (26.0-30.0) L 07/20/18 06:40 MCHC Differential 31.7 pg (28.0-36.0) 07/20/18 06:40 RDW 15.9 % (11.5-20.0) 07/20/18 06:40 Plt Count 458 Th/cmm (150-400) H 07/20/18 06:40 MPV 7.6 fl 07/20/18 06:40 Add Manual Diff YES 07/20/18 06:40 Neutrophils % 75.0 % (40.0-80.0) 07/20/18 06:40 Band Neutrophils % 2 % (0-10) 07/18/18 04:50 Lymphocytes % 15.0 % (20.0-50.0) L 07/20/18 06:40 Monocytes % 9.0 % (2.0-10.0) 07/20/18 06:40 Eosinophils % 0.8 % (0.0-5.0) 07/20/18 06:40 Basophils % 0.2 % (0.0-2.0) 07/20/18 06:40 Neutrophils (Manual) 79 % (40-80) 07/20/18 06:40 Lymphocytes 12 % (20-50) L 07/20/18 06:40 Monocytes 9 % (2-10) 07/20/18 06:40 Eosinophils 0 % (0-5) 07/15/18 06:35 Basophils 0 % (0-3) 07/16/18 04:40 Platelet Estimate ADEQUATE (NORMAL) 07/20/18 06:40 Sodium 139 mEq/L (136-145) 07/20/18 06:40 Potassium 4.1 mEq/L (3.5-5.1) 07/20/18 06:40 Chloride 102 mEq/L (98-107) 07/20/18 06:40 Carbon Dioxide 28.5 mEq/L (21.0-31.0) 07/20/18 06:40 Anion Gap 12.6 (7.0-16.0) 07/20/18 06:40 BUN 32 mg/dL (7-25) H 07/20/18 06:40 Creatinine 1.4 mg/dL (0.7-1.3) H 07/20/18 06:40 Est GFR ( Amer) > 60.0 ml/min (>90) 07/20/18 06:40 Est GFR (Non-Af Amer) 56.3 ml/min 07/20/18 06:40 BUN/Creatinine Ratio 22.9 07/20/18 06:40 Glucose 103 mg/dL (70-105) 07/20/18 06:40 Whole Bld Lactic Acid 1.56 mmol/L (0.60-1.99) 07/15/18 15:00 Calcium 8.3 mg/dL (8.6-10.3) L 07/20/18 06:40 Magnesium 2.2 mg/dL (1.9-2.7) 07/15/18 06:35 Total Bilirubin 0.8 mg/dL (0.3-1.0) 07/14/18 00:20 AST 53 U/L (13-39) H 07/14/18 00:20 ALT 62 U/L (7-52) H 07/14/18 00:20 Alkaline Phosphatase 92 U/L (34-104) 07/14/18 00:20 Troponin I 0.12 ng/mL (0.01-0.05) H* D 07/15/18 06:35 B-Natriuretic Peptide 537.0 pg/mL (5.0-100.0) H 07/17/18 07:00 Total Protein 6.4 gm/dL (6.0-8.3) 07/14/18 00:20 Albumin 3.5 gm/dL (4.2-5.5) L 07/14/18 00:20 Globulin 2.9 gm/dL 07/14/18 00:20 Albumin/Globulin Ratio 1.2 (1.0-1.8) 07/14/18 00:20 Triglycerides 48 mg/dL (<150) 07/14/18 00:20 Cholesterol 61 mg/dL (<200) 07/14/18 00:20 LDL Cholesterol Direct 36 mg/dL (75-193) L 07/14/18 00:20 HDL Cholesterol 22 mg/dL (23-92) L 07/14/18 00:20 Vancomycin Trough 9.2 ug/mL (5-10) 07/19/18 19:00 - Physical Exam Vitals and I&O: Vital Signs Temp 97.5 F 07/20/18 12:00 Pulse 90 07/20/18 12:29 Resp 20 07/20/18 12:00 BP 177/113 07/20/18 12:00 Pulse Ox 96 07/20/18 12:00 Intake & Output 07/19/18 07/20/18 07/20/18 18:59 06:59 18:59 Intake Total 900 950 Output Total 1000 Balance -100 950 Weight (lbs) 177.355 kg 177.355 kg Intake: Intake, IV Amount 100 650 Piperacillin Sodium/ 100 150 Tazobact 3.375 gm In Sodium Chloride 0.9% 50 ml @ 100 mls/hr IV Q6HR [facility] Rx#:[id number] Vancomycin HCl 2 gm In 500 Sodium Chloride 0.9% 500 ml @ 250 mls/hr IV Q18H [facility] Rx#:[id number] Oral 800 300 Output: Urine 1000 Other: # Voids 2 Weight Source Bedscale Bedscale Active Medications: Current Medications Acetaminophen (Tylenol) 650 mg PO Q4HR PRN PRN Reason: Mild Pain Or Fever above 101 Stop: 09/12/18 03:55 Last Admin: 07/17/18 12:43 Dose: 650 mg Budesonide (Pulmicort) 0.5 mg HHN BIDRT [facility] Stop: 09/17/18 18:59 Last Admin: 07/20/18 06:55 Dose: 0.5 mg [place] Oil/[place] Balsam/Trypsin (Venelex) 1 appl TP DAILY [facility] Stop: 09/15/18 08:59 Last Admin: 07/20/18 11:12 Dose: 1 appl Diltiazem HCl (Cardizem) 20 mg IVP Q4H PRN PRN Reason: HR Greater than 130 per min Stop: 09/12/18 03:55 Last Admin: 07/14/18 16:22 Dose: 20 mg Diltiazem HCl (Cardizem) 60 mg PO Q6HR [facility] Stop: 09/12/18 17:59 Last Admin: 07/20/18 12:29 Dose: 60 mg Enoxaparin Sodium (Lovenox) 40 mg SUBQ Q12HR [facility] Stop: 09/12/18 08:59 Last Admin: 07/20/18 09:32 Dose: 40 mg Furosemide (Lasix) 40 mg IVP DAILY [facility] Stop: 09/15/18 08:59 Last Admin: 07/20/18 09:32 Dose: 40 mg Guaifenesin (Robitussin) 100 mg PO Q4H PRN PRN Reason: Cough or Congestion Stop: 09/12/18 03:55 Piperacillin Sod/Tazobactam (Sod 3.375 gm/ Sodium Chloride) 50 mls @ 100 mls/ hr IV Q6HR [facility] Stop: 09/12/18 17:59 Last Admin: 07/20/18 11:12 Dose: 100 mls/hr Vancomycin HCl 2 gm/ Sodium (Chloride) 500 mls @ 250 mls/hr IV Q18H [facility] Stop: 09/15/18 13:59 Last Admin: 07/20/18 13:05 Dose: 250 mls/hr Ibuprofen (Motrin) 800 mg PO TID PRN PRN Reason: Pain (Moderate) Stop: 09/13/18 16:40 Last Admin: 07/19/18 19:52 Dose: 800 mg Ipratropium [place] (Atrovent Neb 0.5mg/2.5ml) 0.5 mg HHN QIDRT [facility] Stop: 09/12/18 14:59 Last Admin: 07/20/18 14:19 Dose: 0.5 mg Methylprednisolone Sodium Succinate (Solu-Medrol) 20 mg IVP DAILY [facility] Stop: 09/16/18 08:59 Last Admin: 07/20/18 09:33 Dose: 20 mg Miscellaneous (Clinical Monitoring) 1 ea MC DAILY PRN PRN Reason: RENAL DOSING (MOTRIN) Stop: 09/15/18 13:51 Morphine Sulfate (Morphine) 2 mg IVP Q6H PRN PRN Reason: Severe Pain Stop: 09/12/18 09:51 Ondansetron HCl (Zofran) 4 mg IV Q8H PRN PRN Reason: Nausea / Vomiting Stop: 09/12/18 03:55 Pantoprazole Sodium (Protonix) 40 mg IVP DAILY [facility] Stop: 09/12/18 10:30 Last Admin: 07/20/18 09:33 Dose: 40 mg Potassium Chloride (Klor-Con) 20 meq PO DAILY [facility] Stop: 09/15/18 08:59 Last Admin: 07/20/18 09:32 Dose: 20 meq Tramadol HCl (Ultram) 50 mg PO Q6HR PRN PRN Reason: Pain (Severe) Stop: 09/12/18 16:33 Last Admin: 07/20/18 00:16 Dose: 50 mg Zolpidem Tartrate (Ambien) 10 mg PO HS PRN PRN Reason: Insomnia Stop: 09/12/18 03:55 General: Alert, Mild distress HEENT: Mucous membr. moist/pink Neck: Supple, JVD, +2 carotid pulse wo bruit (10 cm upper sternal angle) Cardiovascular: Regular rate, Systolic murmurs, Other (uncontrolled atrial fibrillation) Abdomen: Bowel sounds, Soft, Obese Neurological: Normal gait, Strength at 5/5 X4 ext, Normal tone, Cranial nerves 3 -12 NL, Reflexes 2+ Skin: Breakdown (both legs) Assessment/Plan - Assessment Assessment: Right lower lobe pneumonia Congestive heart failure diastolic dysfunction and acute Cellulitis right leg Pleural effusion C kidney disease stage III Lactic acidosis Uncontrolled atrial fibrillation Hypertension Protein calorie malnutrition Morbid obesity Lactic acidosis IV antibiotics IV Lasix Echocardiogram WITH mitral regurgitation mild tricuspid regurgitation aortic regurgitation ejection fraction normal - Plan Plan: Start IV Lasix IV antibiotics fluid restriction echocardiogram Patient to have Zaroxolyn Discharge planning Nutritional Asmnt/Malnutr-PDOC - Dietary Evaluation Malnutrition Findings (Please click <Entered> for more info): Nutritional Asmnt/Malnutrition Start: 07/17/18 16: 49 Text: Status: Complete Freq: Protocol: Document 07/17/18 16:49 MEDARDO (Rec: 07/17/18 17:20 MEDARDO [email or web address]) Nutritional Asmnt/Malnutrition Patient General Information Nutritional Screening Moderate Risk Consult Diagnosis SOB, chest pain Pertinent Medical Hx/Surgical Hx HTN Subjective Information Consult received for BLE venous insufficiency ulcer. Pt seen sitting on chair, awake and alert. Pt asked snacks betoween meals and food preference provided to RD. Discussed with pt about healthy eating. Per EMR, PO intake 75-100%. Current Diet Order/ Nutrition Support cardiac, fluid 1500ml Pertinent Medications lasix, protonix, kcl, piperacillin, vancomycin Pertinent Labs 07/17 BUN 38, Cr 1.6, Glucose 125, Ca 8.4 07/16 Na 132, Na 42, Cr 1.9, Glucose 151, Ca 8.4 Nutritional Hx/Data Height 1.85 m Height (Calculated Centimeters) 185.4 Current Weight (lbs) 180.983 kg Weight (Calculated Kilograms) 181.0 Weight (Calculated Grams) 393023.4 [place] Body Weight 184 Body Mass Index (BMI) 52.6 Weight Status Morbidly Obese GI Symptoms GI Symptoms None Last BM 07/17 x 2 Difficult in: None Usual diet at home Pt stated he has been following fluid restriction about 1300-1400ml at home. Pt gaind wt d/t life change, eating fast food and longer sitting hours. Pt is ready to make change, increase physical activity and eat healthy food . Skin Integrity/Comment: open wound to right leg, edema to lower extremities. Current %PO Good (75-100%) Estimated Nutritional Goals BEE in Kcals: Adj wt of IBW Calories/Kcals/Kg 20-25 Kcals Calculated 7353-7446 Protein: Adj wt of IBW Protein g/k.8 Protein Calculated 86 Fluid: ml 1500ml per MD Nutritional Problem 1. Problem Problem obese Etiology excessive energy intake and inadequte physical activity Signs/Symptoms: BMI 52.6 Malnutrition Alert Is there a minimum of two criteria No selected? Query Text:Check all the applicable criteria. A minimum of two criteria are recommended for diagnosis of either severe or non-severe malnutrition. Malnutrition Related to Morbid Obesity Malnutrition related to morbid obesity No Intervention/Recommendation Comments 1. Continue with cardiac diet wtih fluid restriction as ordered. Recommend healthy snack choices. discussed with pt about healthy eating and life style. 2. Add Eddie BID for wound healing. 3. Monitor PO intake, wt, labs and skin integrity 4. F/U as moderate risk in 3-5 days Expected Outcomes/Goals Expected Outcomes/Goals 1. PO intake to meet at least 75% of nutritional needs. 2. Wt stability, skin to remain intact, labs to approach WNL.
--- NOTE | 2018-07-21 04:07 | Progress Notes ---
DATE: 07/20/2018 PULMONARY PROGRESS NOTE SUBJECTIVE: The patient appears to be doing okay; no distress; still swelling in the lower extremities, but getting less; no shortness of breath; less congestion. OBJECTIVE: VITAL SIGNS: Temperature 97.5, pulse 90, respirations 20, blood pressure was 170/100, O2 saturation is 96%. CHEST: Good breath sounds. No wheezing. No crackles. HEART: Regular rate and rhythm. ABDOMEN: Soft. EXTREMITIES: There is 3+ edema with some erythema that has improved. LABORATORY DATA: WBC is 16.1, hemoglobin 12.0, hematocrit 37.7, platelets is 458. Sodium 139, potassium 4.1, BUN is 13, creatinine 1.4. IMPRESSION: 1. Respiratory failure. 2. Pulmonary edema. 3. Cellulitis of lower extremities and peripheral edema. PLAN: 1. Continue diuresis. 2. Antibiotics. 3. LTAC evaluation. JOB# [id number] JAISON
[2018-07-21] MEDS: Diltiazem 30 mg Tab PO SCH ×3 (05:16→17:26)
[2018-07-21] MEDS: Budesonide 0.5 Mg/2 mL Ud HHN SCH ×2 (07:24→19:03)
[2018-07-21] MEDS: Ipratropium Neb 0.5 mg/2.5 mL UD HHN SCH ×4 (07:24→19:02)
[2018-07-21] MEDS: Enoxaparin 40 mg/0.4 mL 0.4mL Syr SUBQ SCH ×2 (08:38→20:23)
[2018-07-21] MEDS: Potassium Chloride 20 mEq ER Tab PO SCH (08:39)
[2018-07-21] MEDS: methylPREDNISolone SS 40 mg Vial IVP SCH (08:39)
[2018-07-21] MEDS: Venelex 60gm Tube TP SCH (09:00)
--- NOTE | 2018-07-21 13:14 | Internal Medicine Prog Note ---
Internal Medicine Subjective - Subjective Service Date: 07/21/18 (ble edema improving, patient c/o sob during when he wakes up in the metal pourer) Patient is:: awake, verbal Per staff patient has:: no adverse event, tolerating meds Internal Medicine Objective - Results Result Diagrams: 07/20/18 06:40 07/20/18 06:40 Recent Labs: Laboratory Last Values WBC 16.1 Th/cmm (4.8-10.8) H 07/20/18 06:40 RBC 4.85 Mil/cmm (4.30-5.70) 07/20/18 06:40 Hgb 12.0 gm/dL (12-16) 07/20/18 06:40 Hct 37.7 % (41.0-60) L 07/20/18 06:40 MCV 77.9 fl (80-99) L 07/20/18 06:40 MCH 24.7 pg (26.0-30.0) L 07/20/18 06:40 MCHC Differential 31.7 pg (28.0-36.0) 07/20/18 06:40 RDW 15.9 % (11.5-20.0) 07/20/18 06:40 Plt Count 458 Th/cmm (150-400) H 07/20/18 06:40 MPV 7.6 fl 07/20/18 06:40 Add Manual Diff YES 07/20/18 06:40 Neutrophils % 75.0 % (40.0-80.0) 07/20/18 06:40 Band Neutrophils % 2 % (0-10) 07/18/18 04:50 Lymphocytes % 15.0 % (20.0-50.0) L 07/20/18 06:40 Monocytes % 9.0 % (2.0-10.0) 07/20/18 06:40 Eosinophils % 0.8 % (0.0-5.0) 07/20/18 06:40 Basophils % 0.2 % (0.0-2.0) 07/20/18 06:40 Neutrophils (Manual) 79 % (40-80) 07/20/18 06:40 Lymphocytes 12 % (20-50) L 07/20/18 06:40 Monocytes 9 % (2-10) 07/20/18 06:40 Eosinophils 0 % (0-5) 07/15/18 06:35 Basophils 0 % (0-3) 07/16/18 04:40 Platelet Estimate ADEQUATE (NORMAL) 07/20/18 06:40 Sodium 139 mEq/L (136-145) 07/20/18 06:40 Potassium 4.1 mEq/L (3.5-5.1) 07/20/18 06:40 Chloride 102 mEq/L (98-107) 07/20/18 06:40 Carbon Dioxide 28.5 mEq/L (21.0-31.0) 07/20/18 06:40 Anion Gap 12.6 (7.0-16.0) 07/20/18 06:40 BUN 32 mg/dL (7-25) H 07/20/18 06:40 Creatinine 1.4 mg/dL (0.7-1.3) H 07/20/18 06:40 Est GFR ( Amer) > 60.0 ml/min (>90) 07/20/18 06:40 Est GFR (Non-Af Amer) 56.3 ml/min 07/20/18 06:40 BUN/Creatinine Ratio 22.9 07/20/18 06:40 Glucose 103 mg/dL (70-105) 07/20/18 06:40 Whole Bld Lactic Acid 1.56 mmol/L (0.60-1.99) 07/15/18 15:00 Calcium 8.3 mg/dL (8.6-10.3) L 07/20/18 06:40 Magnesium 2.2 mg/dL (1.9-2.7) 07/15/18 06:35 Total Bilirubin 0.8 mg/dL (0.3-1.0) 07/14/18 00:20 AST 53 U/L (13-39) H 07/14/18 00:20 ALT 62 U/L (7-52) H 07/14/18 00:20 Alkaline Phosphatase 92 U/L (34-104) 07/14/18 00:20 Troponin I 0.12 ng/mL (0.01-0.05) H* D 07/15/18 06:35 B-Natriuretic Peptide 537.0 pg/mL (5.0-100.0) H 07/17/18 07:00 Total Protein 6.4 gm/dL (6.0-8.3) 07/14/18 00:20 Albumin 3.5 gm/dL (4.2-5.5) L 07/14/18 00:20 Globulin 2.9 gm/dL 07/14/18 00:20 Albumin/Globulin Ratio 1.2 (1.0-1.8) 07/14/18 00:20 Triglycerides 48 mg/dL (<150) 07/14/18 00:20 Cholesterol 61 mg/dL (<200) 07/14/18 00:20 LDL Cholesterol Direct 36 mg/dL (75-193) L 07/14/18 00:20 HDL Cholesterol 22 mg/dL (23-92) L 07/14/18 00:20 Vancomycin Trough 9.2 ug/mL (5-10) 07/19/18 19:00 - Physical Exam Vitals and I&O: Vital Signs Temp 97.6 F 07/21/18 12:00 Pulse 68 07/21/18 12:00 Resp 20 07/21/18 12:00 BP 157/81 07/21/18 12:00 Pulse Ox 99 07/21/18 12:00 Intake & Output 07/20/18 07/21/18 07/21/18 18:59 06:59 18:59 Intake Total 1100 100 8.333 Balance 1100 100 8.333 Weight (lbs) 391 lb 391 lb Intake: Intake, IV Amount 600 100 8.333 Piperacillin Sodium/ 100 100 Tazobact 3.375 gm In Sodium Chloride 0.9% 50 ml @ 100 mls/hr IV Q6HR [facility] Rx#:[id number] Vancomycin HCl 2 gm In 500 8.333 Sodium Chloride 0.9% 500 ml @ 250 mls/hr IV Q18H [facility] Rx#:[id number] Oral 500 Other: # Voids 5 # Bowel Movements 0 Weight Source Bedscale Bedscale Active Medications: Current Medications Acetaminophen (Tylenol) 650 mg PO Q4HR PRN PRN Reason: Mild Pain Or Fever above 101 Stop: 09/12/18 03:55 Last Admin: 07/17/18 12:43 Dose: 650 mg Budesonide (Pulmicort) 0.5 mg HHN BIDRT [facility] Stop: 09/17/18 18:59 Last Admin: 07/21/18 07:24 Dose: 0.5 mg [place] Oil/[place] Balsam/Trypsin (Venelex) 1 appl TP DAILY [facility] Stop: 09/15/18 08:59 Last Admin: 07/21/18 09:00 Dose: 1 appl Diltiazem HCl (Cardizem) 20 mg IVP Q4H PRN PRN Reason: HR Greater than 130 per min Stop: 09/12/18 03:55 Last Admin: 07/14/18 16:22 Dose: 20 mg Diltiazem HCl (Cardizem) 60 mg PO Q6HR [facility] Stop: 09/12/18 17:59 Last Admin: 07/21/18 05:16 Dose: 60 mg Enoxaparin Sodium (Lovenox) 40 mg SUBQ Q12HR [facility] Stop: 09/12/18 08:59 Last Admin: 07/21/18 08:38 Dose: 40 mg Furosemide (Lasix) 40 mg IVP DAILY [facility] Stop: 09/15/18 08:59 Last Admin: 07/21/18 08:39 Dose: 40 mg Guaifenesin (Robitussin) 100 mg PO Q4H PRN PRN Reason: Cough or Congestion Stop: 09/12/18 03:55 Piperacillin Sod/Tazobactam (Sod 3.375 gm/ Sodium Chloride) 50 mls @ 100 mls/ hr IV Q6HR [facility] Stop: 09/12/18 17:59 Last Admin: 07/21/18 12:57 Dose: 100 mls/hr Vancomycin HCl 2 gm/ Sodium (Chloride) 500 mls @ 250 mls/hr IV Q18H [facility] Stop: 09/15/18 13:59 Last Admin: 07/21/18 08:53 Dose: 250 mls/hr Ibuprofen (Motrin) 800 mg PO TID PRN PRN Reason: Pain (Moderate) Stop: 09/13/18 16:40 Last Admin: 07/21/18 08:50 Dose: 800 mg Ipratropium [place] (Atrovent Neb 0.5mg/2.5ml) 0.5 mg HHN QIDRT [facility] Stop: 09/12/18 14:59 Last Admin: 07/21/18 11:05 Dose: 0.5 mg Methylprednisolone Sodium Succinate (Solu-Medrol) 20 mg IVP DAILY [facility] Stop: 09/16/18 08:59 Last Admin: 07/21/18 08:39 Dose: 20 mg Miscellaneous (Clinical Monitoring) 1 ea MC DAILY PRN PRN Reason: RENAL DOSING (MOTRIN) Stop: 09/15/18 13:51 Morphine Sulfate (Morphine) 2 mg IVP Q6H PRN PRN Reason: Severe Pain Stop: 09/12/18 09:51 Ondansetron HCl (Zofran) 4 mg IV Q8H PRN PRN Reason: Nausea / Vomiting Stop: 09/12/18 03:55 Pantoprazole Sodium (Protonix) 40 mg IVP DAILY [facility] Stop: 09/12/18 10:30 Last Admin: 07/21/18 08:38 Dose: 40 mg Potassium Chloride (Klor-Con) 20 meq PO DAILY [facility] Stop: 09/15/18 08:59 Last Admin: 07/21/18 08:39 Dose: 20 meq Tramadol HCl (Ultram) 50 mg PO Q6HR PRN PRN Reason: Pain (Severe) Stop: 09/12/18 16:33 Last Admin: 07/20/18 00:16 Dose: 50 mg Zolpidem Tartrate (Ambien) 10 mg PO HS PRN PRN Reason: Insomnia Stop: 09/12/18 03:55 General: alert HEENT: NC/AT, PERRLA Neck: Supple Lungs: wheezing, ronchi Cardiovascular: RRR, Normal S1, Normal S2, without murmur Abdomen: soft, non-tender, non-distended, positive bowel sound Extremities: other (multiple open sores) Neurological: alert Internal Medicine Assmt/Plan - Assessment Assessment: Bacteremia Group G streptococcus Multiple open sores with Providencia Rettgeri Acute urinary tract infection acute renal failure morbidly obese anemia hypomagnesemia morbid obesity hypertension congestive heart failure asthma chronic obstructive pulmonary disease type 2 diabetes. - Plan Plan: AM labs continue with wound care CM to arrange dc planning to SNF vs LTAC continue iv vanco/zosyn pain mgmt continue current plan of care Nutritional Asmnt/Malnutr-PDOC - Dietary Evaluation Malnutrition Findings (Please click <Entered> for more info): Nutritional Asmnt/Malnutrition Start: 07/17/18 16: 49 Text: Status: Complete Freq: Protocol: Document 07/17/18 16:49 MEDARDO (Rec: 07/17/18 17:20 MEDARDO [id number]) Nutritional Asmnt/Malnutrition Patient General Information Nutritional Screening Moderate Risk Consult Diagnosis SOB, chest pain Pertinent Medical Hx/Surgical Hx HTN Subjective Information Consult received for BLE venous insufficiency ulcer. Pt seen sitting on chair, awake and alert. Pt asked snacks betoween meals and food preference provided to RD. Discussed with pt about healthy eating. Per EMR, PO intake 75-100%. Current Diet Order/ Nutrition Support cardiac, fluid 1500ml Pertinent Medications lasix, protonix, kcl, piperacillin, vancomycin Pertinent Labs 07/17 BUN 38, Cr 1.6, Glucose 125, Ca 8.4 07/16 Na 132, Na 42, Cr 1.9, Glucose 151, Ca 8.4 Nutritional Hx/Data Height 6 ft 1 in Height (Calculated Centimeters) 185.4 Current Weight (lbs) 399 lb Weight (Calculated Kilograms) 181.0 Weight (Calculated Grams) 725163.4 [place] Body Weight 184 Body Mass Index (BMI) 52.6 Weight Status Morbidly Obese GI Symptoms GI Symptoms None Last BM 07/17 x 2 Difficult in: None Usual diet at home Pt stated he has been following fluid restriction about 1300-1400ml at home. Pt gaind wt d/t life change, eating fast food and longer sitting hours. Pt is ready to make change, increase physical activity and eat healthy food . Skin Integrity/Comment: open wound to right leg, edema to lower extremities. Current %PO Good (75-100%) Estimated Nutritional Goals BEE in Kcals: Adj wt of IBW Calories/Kcals/Kg 20-25 Kcals Calculated 0670-4406 Protein: Adj wt of IBW Protein g/k.8 Protein Calculated 86 Fluid: ml 1500ml per MD Nutritional Problem 1. Problem Problem obese Etiology excessive energy intake and inadequte physical activity Signs/Symptoms: BMI 52.6 Malnutrition Alert Is there a minimum of two criteria No selected? Query Text:Check all the applicable criteria. A minimum of two criteria are recommended for diagnosis of either severe or non-severe malnutrition. Malnutrition Related to Morbid Obesity Malnutrition related to morbid obesity No Intervention/Recommendation Comments 1. Continue with cardiac diet wtih fluid restriction as ordered. Recommend healthy snack choices. discussed with pt about healthy eating and life style. 2. Add Eddie BID for wound healing. 3. Monitor PO intake, wt, labs and skin integrity 4. F/U as moderate risk in 3-5 days Expected Outcomes/Goals Expected Outcomes/Goals 1. PO intake to meet at least 75% of nutritional needs. 2. Wt stability, skin to remain intact, labs to approach WNL.
--- NOTE | 2018-07-21 14:25 | General Progress Note ---
Subjective - Review of Systems Service Date: 07/21/18 Subjective: Patient has less shortness of breath still complaining of swelling both lower extremities and open wound on the right leg Patient feels better patient complained of burning in both the leg Objective - Results Result Diagrams: 07/20/18 06:40 07/20/18 06:40 Recent Labs: Laboratory Last Values WBC 16.1 Th/cmm (4.8-10.8) H 07/20/18 06:40 RBC 4.85 Mil/cmm (4.30-5.70) 07/20/18 06:40 Hgb 12.0 gm/dL (12-16) 07/20/18 06:40 Hct 37.7 % (41.0-60) L 07/20/18 06:40 MCV 77.9 fl (80-99) L 07/20/18 06:40 MCH 24.7 pg (26.0-30.0) L 07/20/18 06:40 MCHC Differential 31.7 pg (28.0-36.0) 07/20/18 06:40 RDW 15.9 % (11.5-20.0) 07/20/18 06:40 Plt Count 458 Th/cmm (150-400) H 07/20/18 06:40 MPV 7.6 fl 07/20/18 06:40 Add Manual Diff YES 07/20/18 06:40 Neutrophils % 75.0 % (40.0-80.0) 07/20/18 06:40 Band Neutrophils % 2 % (0-10) 07/18/18 04:50 Lymphocytes % 15.0 % (20.0-50.0) L 07/20/18 06:40 Monocytes % 9.0 % (2.0-10.0) 07/20/18 06:40 Eosinophils % 0.8 % (0.0-5.0) 07/20/18 06:40 Basophils % 0.2 % (0.0-2.0) 07/20/18 06:40 Neutrophils (Manual) 79 % (40-80) 07/20/18 06:40 Lymphocytes 12 % (20-50) L 07/20/18 06:40 Monocytes 9 % (2-10) 07/20/18 06:40 Eosinophils 0 % (0-5) 07/15/18 06:35 Basophils 0 % (0-3) 07/16/18 04:40 Platelet Estimate ADEQUATE (NORMAL) 07/20/18 06:40 Sodium 139 mEq/L (136-145) 07/20/18 06:40 Potassium 4.1 mEq/L (3.5-5.1) 07/20/18 06:40 Chloride 102 mEq/L (98-107) 07/20/18 06:40 Carbon Dioxide 28.5 mEq/L (21.0-31.0) 07/20/18 06:40 Anion Gap 12.6 (7.0-16.0) 07/20/18 06:40 BUN 32 mg/dL (7-25) H 07/20/18 06:40 Creatinine 1.4 mg/dL (0.7-1.3) H 07/20/18 06:40 Est GFR ( Amer) > 60.0 ml/min (>90) 07/20/18 06:40 Est GFR (Non-Af Amer) 56.3 ml/min 07/20/18 06:40 BUN/Creatinine Ratio 22.9 07/20/18 06:40 Glucose 103 mg/dL (70-105) 07/20/18 06:40 Whole Bld Lactic Acid 1.56 mmol/L (0.60-1.99) 07/15/18 15:00 Calcium 8.3 mg/dL (8.6-10.3) L 07/20/18 06:40 Magnesium 2.2 mg/dL (1.9-2.7) 07/15/18 06:35 Total Bilirubin 0.8 mg/dL (0.3-1.0) 07/14/18 00:20 AST 53 U/L (13-39) H 07/14/18 00:20 ALT 62 U/L (7-52) H 07/14/18 00:20 Alkaline Phosphatase 92 U/L (34-104) 07/14/18 00:20 Troponin I 0.12 ng/mL (0.01-0.05) H* D 07/15/18 06:35 B-Natriuretic Peptide 537.0 pg/mL (5.0-100.0) H 07/17/18 07:00 Total Protein 6.4 gm/dL (6.0-8.3) 07/14/18 00:20 Albumin 3.5 gm/dL (4.2-5.5) L 07/14/18 00:20 Globulin 2.9 gm/dL 07/14/18 00:20 Albumin/Globulin Ratio 1.2 (1.0-1.8) 07/14/18 00:20 Triglycerides 48 mg/dL (<150) 07/14/18 00:20 Cholesterol 61 mg/dL (<200) 07/14/18 00:20 LDL Cholesterol Direct 36 mg/dL (75-193) L 07/14/18 00:20 HDL Cholesterol 22 mg/dL (23-92) L 07/14/18 00:20 Vancomycin Trough 9.2 ug/mL (5-10) 07/19/18 19:00 - Physical Exam Vitals and I&O: Vital Signs Temp 97.6 F 07/21/18 12:00 Pulse 68 07/21/18 12:00 Resp 20 07/21/18 12:00 BP 157/81 07/21/18 12:00 Pulse Ox 99 07/21/18 12:00 Intake & Output 07/20/18 07/21/18 07/21/18 18:59 06:59 18:59 Intake Total 1100 100 8.333 Balance 1100 100 8.333 Weight (lbs) 177.355 kg 177.355 kg Intake: Intake, IV Amount 600 100 8.333 Piperacillin Sodium/ 100 100 Tazobact 3.375 gm In Sodium Chloride 0.9% 50 ml @ 100 mls/hr IV Q6HR [facility] Rx#:[id number] Vancomycin HCl 2 gm In 500 8.333 Sodium Chloride 0.9% 500 ml @ 250 mls/hr IV Q18H [facility] Rx#:[id number] Oral 500 Other: # Voids 5 # Bowel Movements 0 Weight Source Bedscale Bedscale Active Medications: Current Medications Acetaminophen (Tylenol) 650 mg PO Q4HR PRN PRN Reason: Mild Pain Or Fever above 101 Stop: 09/12/18 03:55 Last Admin: 07/17/18 12:43 Dose: 650 mg Budesonide (Pulmicort) 0.5 mg HHN BIDRT [facility] Stop: 09/17/18 18:59 Last Admin: 07/21/18 07:24 Dose: 0.5 mg [place] Oil/[place] Balsam/Trypsin (Venelex) 1 appl TP DAILY [facility] Stop: 09/15/18 08:59 Last Admin: 07/21/18 09:00 Dose: 1 appl Diltiazem HCl (Cardizem) 20 mg IVP Q4H PRN PRN Reason: HR Greater than 130 per min Stop: 09/12/18 03:55 Last Admin: 07/14/18 16:22 Dose: 20 mg Diltiazem HCl (Cardizem) 60 mg PO Q6HR [facility] Stop: 09/12/18 17:59 Last Admin: 07/21/18 12:30 Dose: 60 mg Enoxaparin Sodium (Lovenox) 40 mg SUBQ Q12HR [facility] Stop: 09/12/18 08:59 Last Admin: 07/21/18 08:38 Dose: 40 mg Furosemide (Lasix) 40 mg IVP DAILY [facility] Stop: 09/15/18 08:59 Last Admin: 07/21/18 08:39 Dose: 40 mg Guaifenesin (Robitussin) 100 mg PO Q4H PRN PRN Reason: Cough or Congestion Stop: 09/12/18 03:55 Piperacillin Sod/Tazobactam (Sod 3.375 gm/ Sodium Chloride) 50 mls @ 100 mls/ hr IV Q6HR [facility] Stop: 09/12/18 17:59 Last Admin: 07/21/18 12:57 Dose: 100 mls/hr Vancomycin HCl 2 gm/ Sodium (Chloride) 500 mls @ 250 mls/hr IV Q18H [facility] Stop: 09/15/18 13:59 Last Admin: 07/21/18 08:53 Dose: 250 mls/hr Ibuprofen (Motrin) 800 mg PO TID PRN PRN Reason: Pain (Moderate) Stop: 09/13/18 16:40 Last Admin: 07/21/18 08:50 Dose: 800 mg Ipratropium [place] (Atrovent Neb 0.5mg/2.5ml) 0.5 mg HHN QIDRT [facility] Stop: 09/12/18 14:59 Last Admin: 07/21/18 11:05 Dose: 0.5 mg Methylprednisolone Sodium Succinate (Solu-Medrol) 20 mg IVP DAILY [facility] Stop: 09/16/18 08:59 Last Admin: 07/21/18 08:39 Dose: 20 mg Miscellaneous (Clinical Monitoring) 1 ea MC DAILY PRN PRN Reason: RENAL DOSING (MOTRIN) Stop: 09/15/18 13:51 Morphine Sulfate (Morphine) 2 mg IVP Q6H PRN PRN Reason: Severe Pain Stop: 09/12/18 09:51 Ondansetron HCl (Zofran) 4 mg IV Q8H PRN PRN Reason: Nausea / Vomiting Stop: 09/12/18 03:55 Pantoprazole Sodium (Protonix) 40 mg IVP DAILY [facility] Stop: 09/12/18 10:30 Last Admin: 07/21/18 08:38 Dose: 40 mg Potassium Chloride (Klor-Con) 20 meq PO DAILY [facility] Stop: 09/15/18 08:59 Last Admin: 07/21/18 08:39 Dose: 20 meq Tramadol HCl (Ultram) 50 mg PO Q6HR PRN PRN Reason: Pain (Severe) Stop: 09/12/18 16:33 Last Admin: 07/20/18 00:16 Dose: 50 mg Zolpidem Tartrate (Ambien) 10 mg PO HS PRN PRN Reason: Insomnia Stop: 09/12/18 03:55 General: Alert, Mild distress HEENT: Mucous membr. moist/pink Neck: Supple, JVD, +2 carotid pulse wo bruit (10 cm upper sternal angle) Cardiovascular: Regular rate, Systolic murmurs, Other (uncontrolled atrial fibrillation) Abdomen: Bowel sounds, Soft, Obese Neurological: Normal gait, Strength at 5/5 X4 ext, Normal tone, Cranial nerves 3 -12 NL, Reflexes 2+ Skin: Breakdown (both legs) Assessment/Plan - Assessment Assessment: Right lower lobe pneumonia Congestive heart failure diastolic dysfunction and acute Cellulitis right leg Pleural effusion C kidney disease stage III Lactic acidosis Uncontrolled atrial fibrillation Hypertension Protein calorie malnutrition Morbid obesity Lactic acidosis IV antibiotics IV Lasix Echocardiogram WITH mitral regurgitation mild tricuspid regurgitation aortic regurgitation ejection fraction normal - Plan Plan: Start IV Lasix IV antibiotics fluid restriction echocardiogram Patient to have Zaroxolyn Discharge planning Nutritional Asmnt/Malnutr-PDOC - Dietary Evaluation Malnutrition Findings (Please click <Entered> for more info): Nutritional Asmnt/Malnutrition Start: 07/17/18 16: 49 Text: Status: Complete Freq: Protocol: Document 07/17/18 16:49 MEDARDO (Rec: 04/23/19 17:20 LCHENG [email or web address]) Nutritional Asmnt/Malnutrition Patient General Information Nutritional Screening Moderate Risk Consult Diagnosis SOB, chest pain Pertinent Medical Hx/Surgical Hx HTN Subjective Information Consult received for BLE venous insufficiency ulcer. Pt seen sitting on chair, awake and alert. Pt asked snacks betoween meals and food preference provided to RD. Discussed with pt about healthy eating. Per EMR, PO intake 75-100%. Current Diet Order/ Nutrition Support cardiac, fluid 1500ml Pertinent Medications lasix, protonix, kcl, piperacillin, vancomycin Pertinent Labs 07/17 BUN 38, Cr 1.6, Glucose 125, Ca 8.4 07/16 Na 132, Na 42, Cr 1.9, Glucose 151, Ca 8.4 Nutritional Hx/Data Height 1.85 m Height (Calculated Centimeters) 185.4 Current Weight (lbs) 180.983 kg Weight (Calculated Kilograms) 181.0 Weight (Calculated Grams) 558520.4 [place] Body Weight 184 Body Mass Index (BMI) 52.6 Weight Status Morbidly Obese GI Symptoms GI Symptoms None Last BM 07/17 x 2 Difficult in: None Usual diet at home Pt stated he has been following fluid restriction about 1300-1400ml at home. Pt gaind wt d/t life change, eating fast food and longer sitting hours. Pt is ready to make change, increase physical activity and eat healthy food . Skin Integrity/Comment: open wound to right leg, edema to lower extremities. Current %PO Good (75-100%) Estimated Nutritional Goals BEE in Kcals: Adj wt of IBW Calories/Kcals/Kg 20-25 Kcals Calculated 9008-7051 Protein: Adj wt of IBW Protein g/k.8 Protein Calculated 86 Fluid: ml 1500ml per MD Nutritional Problem 1. Problem Problem obese Etiology excessive energy intake and inadequte physical activity Signs/Symptoms: BMI 52.6 Malnutrition Alert Is there a minimum of two criteria No selected? Query Text:Check all the applicable criteria. A minimum of two criteria are recommended for diagnosis of either severe or non-severe malnutrition. Malnutrition Related to Morbid Obesity Malnutrition related to morbid obesity No Intervention/Recommendation Comments 1. Continue with cardiac diet wtih fluid restriction as ordered. Recommend healthy snack choices. discussed with pt about healthy eating and life style. 2. Add Eddie BID for wound healing. 3. Monitor PO intake, wt, labs and skin integrity 4. F/U as moderate risk in 3-5 days Expected Outcomes/Goals Expected Outcomes/Goals 1. PO intake to meet at least 75% of nutritional needs. 2. Wt stability, skin to remain intact, labs to approach WNL.
--- NOTE | 2018-07-21 22:15 | Progress Notes ---
DATE: 07/21/2018 PULMONARY PROGRESS NOTE SUBJECTIVE: The patient appears to be doing okay. No distress, feeling a bit better, and able to ambulate with less shortness of breath. PHYSICAL EXAMINATION: VITAL SIGNS: Temperature 97.6, pulse 68, respirations 20, blood pressure 157/81, saturation 99%. CHEST: Good breath sounds, no wheezing, no crackles. HEART: Regular rate and rhythm. ABDOMEN: Soft. EXTREMITIES: 3+ edema with erythema. LABORATORY DATA: WBC 16.1, hemoglobin 12.0. Sodium 139, potassium 4.1, BUN 32, creatinine 1.4. IMPRESSION: 1. Respiratory failure. 2. Pulmonary edema. 3. Peripheral edema. 4. Cellulitis. 5. Weakness. 6. Airway disease. PLAN: 1. Continue nebulizer treatment. 2. Pulmicort. 3. Diuresis. 4. Antibiotics. JOB# [id number]
[2018-07-22] MEDS: Diltiazem 30 mg Tab PO SCH ×5 (00:01→23:27)
[2018-07-22] MEDS: Ipratropium Neb 0.5 mg/2.5 mL UD HHN SCH ×4 (07:00→19:46)
[2018-07-22] MEDS: Budesonide 0.5 Mg/2 mL Ud HHN SCH (07:01)
[2018-07-22 07:11] LABS: % BASOPHILS 0.2 % (0.0-2.0); % EOSINOPHILS 1.2 % (0.0-5.0); % LYMPHOCYTES 13.7 % (20.0-50.0); % MONOCYTES 6.1 % (2.0-10.0); % NEUTROPHILS 78.8 % (40.0-80.0); EOSINOPHILE ABSOLUTE 0.2 Th/cmm (0.1-0.4); HEMATOCRIT 36.8 % (41.0-60); HEMOGLOBIN 11.7 gm/dL (12-16); MEAN CELL VOLUME 78.1 fl (80-99); MEAN CORPUSCULAR HEMOGLOBIN 24.9 pg (26.0-30.0); MEAN CORPUSCULAR HGB CONC 31.9 pg (28.0-36.0); MEAN PLATELET VOLUME 7.8 fl; MONOCYTE ABSOLUTE 0.9 Th/cmm (0.3-1.0); NEUTROPHILE ABSOLUTE 11.4 Th/cmm (1.8-8.0); PLATELET COUNT 425 Th/cmm (150-400); RED BLOOD COUNT 4.71 Mil/cmm (4.30-5.70); RED CELL DISTRIBUTION WIDTH 16.4 % (11.5-20.0); WHITE BLOOD COUNT 14.5 Th/cmm (4.8-10.8)
[2018-07-22 07:17] LABS: ANION GAP 11.2 (7.0-16.0); BUN - UREA NITROGEN 29 mg/dL (7-25); CALCIUM SERUM 8.5 mg/dL (8.6-10.3); CARBON DIOXIDE 28.9 mEq/L (21.0-31.0); CHLORIDE 102 mEq/L (98-107); CREATININE - SERUM 1.3 mg/dL (0.7-1.3); GFR AFRICAN-AMERICAN > 60.0 ml/min (>90); GFR NON AFRICAN-AMERICAN > 60.0 ml/min; GLUCOSE 94 mg/dL (70-105); POTASSIUM SERUM 4.1 mEq/L (3.5-5.1); SODIUM SERUM 138 mEq/L (136-145)
[2018-07-22] MEDS: Enoxaparin 40 mg/0.4 mL 0.4mL Syr SUBQ SCH ×2 (08:29→20:53)
[2018-07-22] MEDS: Potassium Chloride 20 mEq ER Tab PO SCH (08:30)
[2018-07-22] MEDS: methylPREDNISolone SS 40 mg Vial IVP SCH (08:30)
--- NOTE | 2018-07-22 13:19 | General Progress Note ---
Subjective - Review of Systems Service Date: 07/22/18 Subjective: Patient has less shortness of breath still complaining of swelling both lower extremities and open wound on the right leg Patient feels better patient complained of burning in both the leg Blood pressure and control start patient on Lopressor 50 mg twice a day losartan 100 mg daily Objective - Results Result Diagrams: 07/22/18 06:23 07/22/18 06:23 Recent Labs: Laboratory Last Values WBC 14.5 Th/cmm (4.8-10.8) H 07/22/18 06:23 RBC 4.71 Mil/cmm (4.30-5.70) 07/22/18 06:23 Hgb 11.7 gm/dL (12-16) L 07/22/18 06:23 Hct 36.8 % (41.0-60) L 07/22/18 06:23 MCV 78.1 fl (80-99) L 07/22/18 06:23 MCH 24.9 pg (26.0-30.0) L 07/22/18 06:23 MCHC Differential 31.9 pg (28.0-36.0) 07/22/18 06:23 RDW 16.4 % (11.5-20.0) 07/22/18 06:23 Plt Count 425 Th/cmm (150-400) H 07/22/18 06:23 MPV 7.8 fl 07/22/18 06:23 Add Manual Diff YES 07/20/18 06:40 Neutrophils % 78.8 % (40.0-80.0) 07/22/18 06:23 Band Neutrophils % 2 % (0-10) 07/18/18 04:50 Lymphocytes % 13.7 % (20.0-50.0) L 07/22/18 06:23 Monocytes % 6.1 % (2.0-10.0) 07/22/18 06:23 Eosinophils % 1.2 % (0.0-5.0) 07/22/18 06:23 Basophils % 0.2 % (0.0-2.0) 07/22/18 06:23 Neutrophils (Manual) 79 % (40-80) 07/20/18 06:40 Lymphocytes 12 % (20-50) L 07/20/18 06:40 Monocytes 9 % (2-10) 07/20/18 06:40 Eosinophils 0 % (0-5) 07/15/18 06:35 Basophils 0 % (0-3) 07/16/18 04:40 Platelet Estimate ADEQUATE (NORMAL) 07/20/18 06:40 Sodium 138 mEq/L (136-145) 07/22/18 06:23 Potassium 4.1 mEq/L (3.5-5.1) 07/22/18 06:23 Chloride 102 mEq/L (98-107) 07/22/18 06:23 Carbon Dioxide 28.9 mEq/L (21.0-31.0) 07/22/18 06:23 Anion Gap 11.2 (7.0-16.0) 07/22/18 06:23 BUN 29 mg/dL (7-25) H 07/22/18 06:23 Creatinine 1.3 mg/dL (0.7-1.3) 07/22/18 06:23 Est GFR ( Amer) > 60.0 ml/min (>90) 07/22/18 06:23 Est GFR (Non-Af Amer) > 60.0 ml/min 07/22/18 06:23 BUN/Creatinine Ratio 22.3 07/22/18 06:23 Glucose 94 mg/dL (70-105) 07/22/18 06:23 Whole Bld Lactic Acid 1.56 mmol/L (0.60-1.99) 07/15/18 15:00 Calcium 8.5 mg/dL (8.6-10.3) L 07/22/18 06:23 Magnesium 2.2 mg/dL (1.9-2.7) 07/15/18 06:35 Total Bilirubin 0.8 mg/dL (0.3-1.0) 07/14/18 00:20 AST 53 U/L (13-39) H 07/14/18 00:20 ALT 62 U/L (7-52) H 07/14/18 00:20 Alkaline Phosphatase 92 U/L (34-104) 07/14/18 00:20 Troponin I 0.12 ng/mL (0.01-0.05) H* D 07/15/18 06:35 B-Natriuretic Peptide 537.0 pg/mL (5.0-100.0) H 07/17/18 07:00 Total Protein 6.4 gm/dL (6.0-8.3) 07/14/18 00:20 Albumin 3.5 gm/dL (4.2-5.5) L 07/14/18 00:20 Globulin 2.9 gm/dL 07/14/18 00:20 Albumin/Globulin Ratio 1.2 (1.0-1.8) 07/14/18 00:20 Triglycerides 48 mg/dL (<150) 07/14/18 00:20 Cholesterol 61 mg/dL (<200) 07/14/18 00:20 LDL Cholesterol Direct 36 mg/dL (75-193) L 07/14/18 00:20 HDL Cholesterol 22 mg/dL (23-92) L 07/14/18 00:20 Vancomycin Trough 9.2 ug/mL (5-10) 07/19/18 19:00 - Physical Exam Vitals and I&O: Vital Signs Temp 98.5 F 07/22/18 08:00 Pulse 75 07/22/18 12:22 Resp 20 07/22/18 10:56 BP 168/112 07/22/18 08:00 Pulse Ox 96 07/22/18 10:56 Intake & Output 07/21/18 07/22/18 07/22/18 18:59 06:59 18:59 Intake Total 608.333 300 Balance 608.333 300 Weight (lbs) 177.355 kg 177.355 kg Intake: Intake, IV Amount 608.333 100 Piperacillin Sodium/ 100 100 Tazobact 3.375 gm In Sodium Chloride 0.9% 50 ml @ 100 mls/hr IV Q6HR [facility] Rx#:[id number] Vancomycin HCl 2 gm In 508.333 Sodium Chloride 0.9% 500 ml @ 250 mls/hr IV Q18H [facility] Rx#:[id number] Oral 200 Other: # Voids 2 Weight Source Bedscale Bedscale Active Medications: Current Medications Acetaminophen (Tylenol) 650 mg PO Q4HR PRN PRN Reason: Mild Pain Or Fever above 101 Stop: 09/12/18 03:55 Last Admin: 07/17/18 12:43 Dose: 650 mg Budesonide (Pulmicort) 0.5 mg HHN BIDRT [facility] Stop: 09/17/18 18:59 Last Admin: 07/22/18 07:01 Dose: 0.5 mg [place] Oil/[place] Balsam/Trypsin (Venelex) 1 appl TP DAILY [facility] Stop: 09/15/18 08:59 Last Admin: 07/21/18 09:00 Dose: 1 appl Diltiazem HCl (Cardizem) 20 mg IVP Q4H PRN PRN Reason: HR Greater than 130 per min Stop: 09/12/18 03:55 Last Admin: 07/14/18 16:22 Dose: 20 mg Diltiazem HCl (Cardizem) 60 mg PO Q6HR [facility] Stop: 09/12/18 17:59 Last Admin: 07/22/18 05:45 Dose: 60 mg Enoxaparin Sodium (Lovenox) 40 mg SUBQ Q12HR [facility] Stop: 09/12/18 08:59 Last Admin: 07/22/18 08:29 Dose: 40 mg Furosemide (Lasix) 40 mg IVP DAILY [facility] Stop: 09/15/18 08:59 Last Admin: 07/22/18 08:29 Dose: 40 mg Guaifenesin (Robitussin) 100 mg PO Q4H PRN PRN Reason: Cough or Congestion Stop: 09/12/18 03:55 Piperacillin Sod/Tazobactam (Sod 3.375 gm/ Sodium Chloride) 50 mls @ 100 mls/ hr IV Q6HR [facility] Stop: 09/12/18 17:59 Last Infusion: 07/22/18 06:16 Dose: Infused Vancomycin HCl 2 gm/ Sodium (Chloride) 500 mls @ 250 mls/hr IV Q18H [facility] Stop: 09/15/18 13:59 Last Admin: 07/22/18 04:17 Dose: 250 mls/hr Ibuprofen (Motrin) 800 mg PO TID PRN PRN Reason: Pain (Moderate) Stop: 09/13/18 16:40 Last Admin: 07/21/18 20:23 Dose: 800 mg Ipratropium [place] (Atrovent Neb 0.5mg/2.5ml) 0.5 mg HHN QIDRT [facility] Stop: 09/12/18 14:59 Last Admin: 07/22/18 10:54 Dose: 0.5 mg Losartan Potassium (Cozaar) 100 mg PO DAILY [facility] Stop: 09/21/18 08:59 Methylprednisolone Sodium Succinate (Solu-Medrol) 20 mg IVP DAILY [facility] Stop: 09/16/18 08:59 Last Admin: 07/22/18 08:30 Dose: 20 mg Metoprolol Tartrate (Lopressor) 50 mg PO BID [facility] Stop: 09/20/18 16:59 Miscellaneous (Clinical Monitoring) 1 ea MC DAILY PRN PRN Reason: RENAL DOSING (MOTRIN) Stop: 09/15/18 13:51 Ondansetron HCl (Zofran) 4 mg IV Q8H PRN PRN Reason: Nausea / Vomiting Stop: 09/12/18 03:55 Pantoprazole Sodium (Protonix) 40 mg IVP DAILY [facility] Stop: 09/12/18 10:30 Last Admin: 07/22/18 08:31 Dose: 40 mg Potassium Chloride (Klor-Con) 20 meq PO DAILY [facility] Stop: 09/15/18 08:59 Last Admin: 07/22/18 08:30 Dose: 20 meq General: Alert, Mild distress HEENT: Mucous membr. moist/pink Neck: Supple, JVD, +2 carotid pulse wo bruit (10 cm upper sternal angle) Cardiovascular: Regular rate, Systolic murmurs, Other (uncontrolled atrial fibrillation) Abdomen: Bowel sounds, Soft, Obese Neurological: Normal gait, Strength at 5/5 X4 ext, Normal tone, Cranial nerves 3 -12 NL, Reflexes 2+ Skin: Breakdown (both legs) Assessment/Plan - Assessment Assessment: Right lower lobe pneumonia Congestive heart failure diastolic dysfunction and acute Cellulitis right leg Pleural effusion C kidney disease stage III Lactic acidosis Uncontrolled atrial fibrillation Hypertension Protein calorie malnutrition Morbid obesity Lactic acidosis IV antibiotics IV Lasix Echocardiogram WITH mitral regurgitation mild tricuspid regurgitation aortic regurgitation ejection fraction normal - Plan Plan: Start IV Lasix IV antibiotics fluid restriction echocardiogram Patient to have Zaroxolyn Discharge planning Nutritional Asmnt/Malnutr-PDOC - Dietary Evaluation Malnutrition Findings (Please click <Entered> for more info): Nutritional Asmnt/Malnutrition Start: 07/17/18 16: 49 Text: Status: Complete Freq: Protocol: Document 07/17/18 16:49 LCHENG (Rec: 07/17/18 17:20 LCLUCIANG [email or web address]) Nutritional Asmnt/Malnutrition Patient General Information Nutritional Screening Moderate Risk Consult Diagnosis SOB, chest pain Pertinent Medical Hx/Surgical Hx HTN Subjective Information Consult received for BLE venous insufficiency ulcer. Pt seen sitting on chair, awake and alert. Pt asked snacks betoween meals and food preference provided to RD. Discussed with pt about healthy eating. Per EMR, PO intake 75-100%. Current Diet Order/ Nutrition Support cardiac, fluid 1500ml Pertinent Medications lasix, protonix, kcl, piperacillin, vancomycin Pertinent Labs 07/17 BUN 38, Cr 1.6, Glucose 125, Ca 8.4 07/16 Na 132, Na 42, Cr 1.9, Glucose 151, Ca 8.4 Nutritional Hx/Data Height 1.85 m Height (Calculated Centimeters) 185.4 Current Weight (lbs) 180.983 kg Weight (Calculated Kilograms) 181.0 Weight (Calculated Grams) 544539.4 [place] Body Weight 184 Body Mass Index (BMI) 52.6 Weight Status Morbidly Obese GI Symptoms GI Symptoms None Last BM 07/17 x 2 Difficult in: None Usual diet at home Pt stated he has been following fluid restriction about 1300-1400ml at home. Pt gaind wt d/t life change, eating fast food and longer sitting hours. Pt is ready to make change, increase physical activity and eat healthy food . Skin Integrity/Comment: open wound to right leg, edema to lower extremities. Current %PO Good (75-100%) Estimated Nutritional Goals BEE in Kcals: Adj wt of IBW Calories/Kcals/Kg 20-25 Kcals Calculated 2555-5551 Protein: Adj wt of IBW Protein g/k.8 Protein Calculated 86 Fluid: ml 1500ml per MD Nutritional Problem 1. Problem Problem obese Etiology excessive energy intake and inadequte physical activity Signs/Symptoms: BMI 52.6 Malnutrition Alert Is there a minimum of two criteria No selected? Query Text:Check all the applicable criteria. A minimum of two criteria are recommended for diagnosis of either severe or non-severe malnutrition. Malnutrition Related to Morbid Obesity Malnutrition related to morbid obesity No Intervention/Recommendation Comments 1. Continue with cardiac diet wtih fluid restriction as ordered. Recommend healthy snack choices. discussed with pt about healthy eating and life style. 2. Add Eddie BID for wound healing. 3. Monitor PO intake, wt, labs and skin integrity 4. F/U as moderate risk in 3-5 days Expected Outcomes/Goals Expected Outcomes/Goals 1. PO intake to meet at least 75% of nutritional needs. 2. Wt stability, skin to remain intact, labs to approach WNL.
--- NOTE | 2018-07-22 15:25 | Internal Medicine Prog Note ---
Internal Medicine Subjective - Subjective Service Date: 07/22/18 Patient seen and examined:: with staff Patient is:: awake, verbal, in bed Patient Complaints of:: other (ble pain) Per staff patient has:: no adverse event, tolerating meds Internal Medicine Objective - Results Result Diagrams: 07/22/18 06:23 07/22/18 06:23 Recent Labs: Laboratory Last Values WBC 14.5 Th/cmm (4.8-10.8) H 07/22/18 06:23 RBC 4.71 Mil/cmm (4.30-5.70) 07/22/18 06:23 Hgb 11.7 gm/dL (12-16) L 07/22/18 06:23 Hct 36.8 % (41.0-60) L 07/22/18 06:23 MCV 78.1 fl (80-99) L 07/22/18 06:23 MCH 24.9 pg (26.0-30.0) L 07/22/18 06:23 MCHC Differential 31.9 pg (28.0-36.0) 07/22/18 06:23 RDW 16.4 % (11.5-20.0) 07/22/18 06:23 Plt Count 425 Th/cmm (150-400) H 07/22/18 06:23 MPV 7.8 fl 07/22/18 06:23 Add Manual Diff YES 07/20/18 06:40 Neutrophils % 78.8 % (40.0-80.0) 07/22/18 06:23 Band Neutrophils % 2 % (0-10) 07/18/18 04:50 Lymphocytes % 13.7 % (20.0-50.0) L 07/22/18 06:23 Monocytes % 6.1 % (2.0-10.0) 07/22/18 06:23 Eosinophils % 1.2 % (0.0-5.0) 07/22/18 06:23 Basophils % 0.2 % (0.0-2.0) 07/22/18 06:23 Neutrophils (Manual) 79 % (40-80) 07/20/18 06:40 Lymphocytes 12 % (20-50) L 07/20/18 06:40 Monocytes 9 % (2-10) 07/20/18 06:40 Eosinophils 0 % (0-5) 07/15/18 06:35 Basophils 0 % (0-3) 07/16/18 04:40 Platelet Estimate ADEQUATE (NORMAL) 07/20/18 06:40 Sodium 138 mEq/L (136-145) 07/22/18 06:23 Potassium 4.1 mEq/L (3.5-5.1) 07/22/18 06:23 Chloride 102 mEq/L (98-107) 07/22/18 06:23 Carbon Dioxide 28.9 mEq/L (21.0-31.0) 07/22/18 06:23 Anion Gap 11.2 (7.0-16.0) 07/22/18 06:23 BUN 29 mg/dL (7-25) H 07/22/18 06:23 Creatinine 1.3 mg/dL (0.7-1.3) 07/22/18 06:23 Est GFR ( Amer) > 60.0 ml/min (>90) 07/22/18 06:23 Est GFR (Non-Af Amer) > 60.0 ml/min 07/22/18 06:23 BUN/Creatinine Ratio 22.3 07/22/18 06:23 Glucose 94 mg/dL (70-105) 07/22/18 06:23 Whole Bld Lactic Acid 1.56 mmol/L (0.60-1.99) 07/15/18 15:00 Calcium 8.5 mg/dL (8.6-10.3) L 07/22/18 06:23 Magnesium 2.2 mg/dL (1.9-2.7) 07/15/18 06:35 Total Bilirubin 0.8 mg/dL (0.3-1.0) 07/14/18 00:20 AST 53 U/L (13-39) H 07/14/18 00:20 ALT 62 U/L (7-52) H 07/14/18 00:20 Alkaline Phosphatase 92 U/L (34-104) 07/14/18 00:20 Troponin I 0.12 ng/mL (0.01-0.05) H* D 07/15/18 06:35 B-Natriuretic Peptide 537.0 pg/mL (5.0-100.0) H 07/17/18 07:00 Total Protein 6.4 gm/dL (6.0-8.3) 07/14/18 00:20 Albumin 3.5 gm/dL (4.2-5.5) L 07/14/18 00:20 Globulin 2.9 gm/dL 07/14/18 00:20 Albumin/Globulin Ratio 1.2 (1.0-1.8) 07/14/18 00:20 Triglycerides 48 mg/dL (<150) 07/14/18 00:20 Cholesterol 61 mg/dL (<200) 07/14/18 00:20 LDL Cholesterol Direct 36 mg/dL (75-193) L 07/14/18 00:20 HDL Cholesterol 22 mg/dL (23-92) L 07/14/18 00:20 Vancomycin Trough 9.2 ug/mL (5-10) 07/19/18 19:00 - Physical Exam Vitals and I&O: Vital Signs Temp 98.2 F 07/22/18 12:00 Pulse 108 07/22/18 14:51 Resp 20 07/22/18 14:51 BP 144/100 07/22/18 13:22 Pulse Ox 96 07/22/18 14:51 Intake & Output 07/21/18 07/22/18 07/22/18 18:59 06:59 18:59 Intake Total 608.333 300 Balance 608.333 300 Weight (lbs) 391 lb 391 lb Intake: Intake, IV Amount 608.333 100 Piperacillin Sodium/ 100 100 Tazobact 3.375 gm In Sodium Chloride 0.9% 50 ml @ 100 mls/hr IV Q6HR [facility] Rx#:[id number] Vancomycin HCl 2 gm In 508.333 Sodium Chloride 0.9% 500 ml @ 250 mls/hr IV Q18H [facility] Rx#:[id number] Oral 200 Other: # Voids 2 Weight Source Bedscale Bedscale Active Medications: Current Medications Acetaminophen (Tylenol) 650 mg PO Q4HR PRN PRN Reason: Mild Pain Or Fever above 101 Stop: 09/12/18 03:55 Last Admin: 07/17/18 12:43 Dose: 650 mg Budesonide (Pulmicort) 0.5 mg HHN BIDRT [facility] Stop: 09/17/18 18:59 Last Admin: 07/22/18 07:01 Dose: 0.5 mg [place] Oil/[place]ian Balsam/Trypsin (Venelex) 1 appl TP DAILY [facility] Stop: 09/15/18 08:59 Last Admin: 07/21/18 09:00 Dose: 1 appl Diltiazem HCl (Cardizem) 20 mg IVP Q4H PRN PRN Reason: HR Greater than 130 per min Stop: 09/12/18 03:55 Last Admin: 07/14/18 16:22 Dose: 20 mg Diltiazem HCl (Cardizem) 60 mg PO Q6HR [facility] Stop: 09/12/18 17:59 Last Admin: 07/22/18 13:29 Dose: 60 mg Enoxaparin Sodium (Lovenox) 40 mg SUBQ Q12HR [facility] Stop: 09/12/18 08:59 Last Admin: 07/22/18 08:29 Dose: 40 mg Furosemide (Lasix) 40 mg IVP DAILY [facility] Stop: 09/15/18 08:59 Last Admin: 07/22/18 08:29 Dose: 40 mg Guaifenesin (Robitussin) 100 mg PO Q4H PRN PRN Reason: Cough or Congestion Stop: 09/12/18 03:55 Piperacillin Sod/Tazobactam (Sod 3.375 gm/ Sodium Chloride) 50 mls @ 100 mls/ hr IV Q6HR [facility] Stop: 09/12/18 17:59 Last Admin: 07/22/18 13:29 Dose: 100 mls/hr Vancomycin HCl 2 gm/ Sodium (Chloride) 500 mls @ 250 mls/hr IV Q18H [facility] Stop: 09/15/18 13:59 Last Admin: 07/22/18 04:17 Dose: 250 mls/hr Ibuprofen (Motrin) 800 mg PO TID PRN PRN Reason: Pain (Moderate) Stop: 09/13/18 16:40 Last Admin: 07/21/18 20:23 Dose: 800 mg Ipratropium [place] (Atrovent Neb 0.5mg/2.5ml) 0.5 mg HHN QIDRT [facility] Stop: 09/12/18 14:59 Last Admin: 07/22/18 14:50 Dose: 0.5 mg Losartan Potassium (Cozaar) 100 mg PO DAILY [facility] Stop: 09/21/18 08:59 Methylprednisolone Sodium Succinate (Solu-Medrol) 20 mg IVP DAILY [facility] Stop: 09/16/18 08:59 Last Admin: 07/22/18 08:30 Dose: 20 mg Metoprolol Tartrate (Lopressor) 50 mg PO BID [facility] Stop: 09/20/18 16:59 Miscellaneous (Clinical Monitoring) 1 ea MC DAILY PRN PRN Reason: RENAL DOSING (MOTRIN) Stop: 09/15/18 13:51 Ondansetron HCl (Zofran) 4 mg IV Q8H PRN PRN Reason: Nausea / Vomiting Stop: 09/12/18 03:55 Pantoprazole Sodium (Protonix) 40 mg IVP DAILY [facility] Stop: 09/12/18 10:30 Last Admin: 07/22/18 08:31 Dose: 40 mg Potassium Chloride (Klor-Con) 20 meq PO DAILY [facility] Stop: 09/15/18 08:59 Last Admin: 07/22/18 08:30 Dose: 20 meq General: alert HEENT: NC/AT, PERRLA Neck: Supple Lungs: wheezing, ronchi Cardiovascular: RRR, Normal S1, Normal S2, without murmur Abdomen: soft, non-tender, non-distended, positive bowel sound Extremities: other (multiple open sores) Neurological: alert Internal Medicine Assmt/Plan - Assessment Assessment: Bacteremia Group G streptococcus Multiple open sores with Providencia Rettgeri Acute urinary tract infection acute renal failure morbidly obese anemia hypomagnesemia morbid obesity hypertension Acute diastolic congestive heart failure asthma chronic obstructive pulmonary disease type 2 diabetes. - Plan Plan: AM labs continue with wound care CM to arrange dc planning to SNF vs LTAC continue iv vanco/zosyn pain mgmt continue current plan of care Nutritional Asmnt/Malnutr-PDOC - Dietary Evaluation Malnutrition Findings (Please click <Entered> for more info): Nutritional Asmnt/Malnutrition Start: 07/17/18 16: 49 Text: Status: Complete Freq: Protocol: Document 07/17/18 16:49 LCLUCIANG (Rec: 07/17/18 17:20 MEDARDO [email or web address]) Nutritional Asmnt/Malnutrition Patient General Information Nutritional Screening Moderate Risk Consult Diagnosis SOB, chest pain Pertinent Medical Hx/Surgical Hx HTN Subjective Information Consult received for BLE venous insufficiency ulcer. Pt seen sitting on chair, awake and alert. Pt asked snacks betoween meals and food preference provided to RD. Discussed with pt about healthy eating. Per EMR, PO intake 75-100%. Current Diet Order/ Nutrition Support cardiac, fluid 1500ml Pertinent Medications lasix, protonix, kcl, piperacillin, vancomycin Pertinent Labs 07/17 BUN 38, Cr 1.6, Glucose 125, Ca 8.4 07/16 Na 132, Na 42, Cr 1.9, Glucose 151, Ca 8.4 Nutritional Hx/Data Height 6 ft 1 in Height (Calculated Centimeters) 185.4 Current Weight (lbs) 399 lb Weight (Calculated Kilograms) 181.0 Weight (Calculated Grams) 485065.4 [place] Body Weight 184 Body Mass Index (BMI) 52.6 Weight Status Morbidly Obese GI Symptoms GI Symptoms None Last BM 07/17 x 2 Difficult in: None Usual diet at home Pt stated he has been following fluid restriction about 1300-1400ml at home. Pt gaind wt d/t life change, eating fast food and longer sitting hours. Pt is ready to make change, increase physical activity and eat healthy food . Skin Integrity/Comment: open wound to right leg, edema to lower extremities. Current %PO Good (75-100%) Estimated Nutritional Goals BEE in Kcals: Adj wt of IBW Calories/Kcals/Kg 20-25 Kcals Calculated 9526-2856 Protein: Adj wt of IBW Protein g/k.8 Protein Calculated 86 Fluid: ml 1500ml per MD Nutritional Problem 1. Problem Problem obese Etiology excessive energy intake and inadequte physical activity Signs/Symptoms: BMI 52.6 Malnutrition Alert Is there a minimum of two criteria No selected? Query Text:Check all the applicable criteria. A minimum of two criteria are recommended for diagnosis of either severe or non-severe malnutrition. Malnutrition Related to Morbid Obesity Malnutrition related to morbid obesity No Intervention/Recommendation Comments 1. Continue with cardiac diet wtih fluid restriction as ordered. Recommend healthy snack choices. discussed with pt about healthy eating and life style. 2. Add Eddie BID for wound healing. 3. Monitor PO intake, wt, labs and skin integrity 4. F/U as moderate risk in 3-5 days Expected Outcomes/Goals Expected Outcomes/Goals 1. PO intake to meet at least 75% of nutritional needs. 2. Wt stability, skin to remain intact, labs to approach WNL.
[2018-07-22] MEDS: Venelex 60gm Tube TP SCH (18:10)
--- NOTE | 2018-07-23 02:10 | Progress Notes ---
DATE: 07/22/2018 PULMONARY PROGRESS NOTE SUBJECTIVE: The patient appears to be doing okay. OBJECTIVE: GENERAL: No distress. VITAL SIGNS: Temperature 99.5, pulse 94, respirations 20, blood pressure 168/112, and saturation 96%. CHEST: Good breath sounds, no wheezing, no crackles. HEART: Regular rate and rhythm. ABDOMEN: Soft. EXTREMITIES: A 2+edema. LABORATORY DATA: Show WBC is 14.5 and hemoglobin 11.7. Sodium 130, potassium 4.1, BUN 29, and creatinine 1.3. IMPRESSION: 1. Respiratory failure. 2. Cellulitis. 3. Peripheral edema. 4. Weakness. 5. Airway disease, bronchospasm. PLAN: 1. Continue nebulizers. 2. Pulmicort. 3. Diuresis and supportive care. JOB# [id number]
[2018-07-23 05:28] LABS: % EOSINOPHILS 0.8 % (0.0-5.0); % LYMPHOCYTES 13.7 % (20.0-50.0); % MONOCYTES 5.7 % (2.0-10.0); % NEUTROPHILS 79.8 % (40.0-80.0); EOSINOPHILE ABSOLUTE 0.1 Th/cmm (0.1-0.4); HEMATOCRIT 39.6 % (41.0-60); HEMOGLOBIN 12.5 gm/dL (12-16); LYMPHOCYTE ABSOLUTE 2.1 Th/cmm (1.5-3.0); MEAN CELL VOLUME 76.7 fl (80-99); MEAN CORPUSCULAR HEMOGLOBIN 24.2 pg (26.0-30.0); MEAN CORPUSCULAR HGB CONC 31.6 pg (28.0-36.0); MEAN PLATELET VOLUME 7.9 fl; MONOCYTE ABSOLUTE 0.9 Th/cmm (0.3-1.0); PLATELET COUNT 405 Th/cmm (150-400); RED BLOOD COUNT 5.16 Mil/cmm (4.30-5.70); RED CELL DISTRIBUTION WIDTH 15.3 % (11.5-20.0)
[2018-07-23 05:44] LABS: ANION GAP 15.8 (7.0-16.0); BUN - UREA NITROGEN 35 mg/dL (7-25); CALCIUM SERUM 9.2 mg/dL (8.6-10.3); CARBON DIOXIDE 24.4 mEq/L (21.0-31.0); CHLORIDE 102 mEq/L (98-107); CREATININE - SERUM 1.4 mg/dL (0.7-1.3); GFR AFRICAN-AMERICAN > 60.0 ml/min (>90); GFR NON AFRICAN-AMERICAN 56.3 ml/min; GLUCOSE 118 mg/dL (70-105); MAGNESIUM 2.3 mg/dL (1.9-2.7); POTASSIUM SERUM 4.2 mEq/L (3.5-5.1); SODIUM SERUM 138 mEq/L (136-145)
[2018-07-23 05:57] LABS: WHITE BLOOD COUNT 15.1 Th/cmm (4.8-10.8)
[2018-07-23] MEDS: Diltiazem 30 mg Tab PO SCH ×4 (06:06→23:34)
[2018-07-23] MEDS: Ipratropium Neb 0.5 mg/2.5 mL UD HHN SCH ×4 (07:30→19:11)
[2018-07-23] MEDS: Budesonide 0.5 Mg/2 mL Ud HHN SCH ×2 (07:31→19:11)
[2018-07-23] MEDS: Potassium Chloride 20 mEq ER Tab PO SCH (08:55)
[2018-07-23] MEDS: Enoxaparin 40 mg/0.4 mL 0.4mL Syr SUBQ SCH ×2 (08:57→20:52)
[2018-07-23] MEDS: methylPREDNISolone SS 40 mg Vial IVP SCH (09:21)
--- NOTE | 2018-07-23 11:45 | General Progress Note ---
Subjective - Review of Systems Service Date: 07/23/18 Subjective: Patient has less shortness of breath still complaining of swelling both lower extremities and open wound on the right leg Patient feels better patient complained of burning in both the leg Blood pressure and control start patient on Lopressor 50 mg twice a day losartan 100 mg daily Objective - Results Result Diagrams: 07/23/18 04:40 07/23/18 04:40 Recent Labs: Laboratory Last Values WBC 15.1 Th/cmm (4.8-10.8) H 07/23/18 04:40 RBC 5.16 Mil/cmm (4.30-5.70) 07/23/18 04:40 Hgb 12.5 gm/dL (12-16) 07/23/18 04:40 Hct 39.6 % (41.0-60) L 07/23/18 04:40 MCV 76.7 fl (80-99) L 07/23/18 04:40 MCH 24.2 pg (26.0-30.0) L 07/23/18 04:40 MCHC Differential 31.6 pg (28.0-36.0) 07/23/18 04:40 RDW 15.3 % (11.5-20.0) 07/23/18 04:40 Plt Count 405 Th/cmm (150-400) H 07/23/18 04:40 MPV 7.9 fl 07/23/18 04:40 Add Manual Diff YES 07/20/18 06:40 Neutrophils % 79.8 % (40.0-80.0) 07/23/18 04:40 Band Neutrophils % 2 % (0-10) 07/18/18 04:50 Lymphocytes % 13.7 % (20.0-50.0) L 07/23/18 04:40 Monocytes % 5.7 % (2.0-10.0) 07/23/18 04:40 Eosinophils % 0.8 % (0.0-5.0) 07/23/18 04:40 Basophils % 0.0 % (0.0-2.0) 07/23/18 04:40 Neutrophils (Manual) 79 % (40-80) 07/20/18 06:40 Lymphocytes 12 % (20-50) L 07/20/18 06:40 Monocytes 9 % (2-10) 07/20/18 06:40 Eosinophils 0 % (0-5) 07/15/18 06:35 Basophils 0 % (0-3) 07/16/18 04:40 Platelet Estimate ADEQUATE (NORMAL) 07/20/18 06:40 Sodium 138 mEq/L (136-145) 07/23/18 04:40 Potassium 4.2 mEq/L (3.5-5.1) 07/23/18 04:40 Chloride 102 mEq/L (98-107) 07/23/18 04:40 Carbon Dioxide 24.4 mEq/L (21.0-31.0) 07/23/18 04:40 Anion Gap 15.8 (7.0-16.0) 07/23/18 04:40 BUN 35 mg/dL (7-25) H 07/23/18 04:40 Creatinine 1.4 mg/dL (0.7-1.3) H 07/23/18 04:40 Est GFR ( Amer) > 60.0 ml/min (>90) 07/23/18 04:40 Est GFR (Non-Af Amer) 56.3 ml/min 07/23/18 04:40 BUN/Creatinine Ratio 25.0 07/23/18 04:40 Glucose 118 mg/dL (70-105) H 07/23/18 04:40 Whole Bld Lactic Acid 1.56 mmol/L (0.60-1.99) 07/15/18 15:00 Calcium 9.2 mg/dL (8.6-10.3) 07/23/18 04:40 Magnesium 2.3 mg/dL (1.9-2.7) 07/23/18 04:40 Total Bilirubin 0.8 mg/dL (0.3-1.0) 07/14/18 00:20 AST 53 U/L (13-39) H 07/14/18 00:20 ALT 62 U/L (7-52) H 07/14/18 00:20 Alkaline Phosphatase 92 U/L (34-104) 07/14/18 00:20 Troponin I 0.12 ng/mL (0.01-0.05) H* D 07/15/18 06:35 B-Natriuretic Peptide 537.0 pg/mL (5.0-100.0) H 07/17/18 07:00 Total Protein 6.4 gm/dL (6.0-8.3) 07/14/18 00:20 Albumin 3.5 gm/dL (4.2-5.5) L 07/14/18 00:20 Globulin 2.9 gm/dL 07/14/18 00:20 Albumin/Globulin Ratio 1.2 (1.0-1.8) 07/14/18 00:20 Triglycerides 48 mg/dL (<150) 07/14/18 00:20 Cholesterol 61 mg/dL (<200) 07/14/18 00:20 LDL Cholesterol Direct 36 mg/dL (75-193) L 07/14/18 00:20 HDL Cholesterol 22 mg/dL (23-92) L 07/14/18 00:20 Vancomycin Trough 9.2 ug/mL (5-10) 07/19/18 19:00 - Physical Exam Vitals and I&O: Vital Signs Temp 97.3 F 07/23/18 07:52 Pulse 51 07/23/18 08:56 Resp 19 07/23/18 07:52 BP 154/99 07/23/18 09:14 Pulse Ox 99 07/23/18 07:52 Intake & Output 07/22/18 07/23/18 07/23/18 18:59 06:59 18:59 Intake Total 940 50 700 Balance 940 50 700 Weight (lbs) 177.355 kg 177.355 kg Intake: Intake, IV Amount 100 50 Piperacillin Sodium/ 100 50 Tazobact 3.375 gm In Sodium Chloride 0.9% 50 ml @ 100 mls/hr IV Q6HR [facility] Rx#:[id number] Oral 480 700 Albumin 360 Other: # Voids 4 4 # Bowel Movements 1 Weight Source Estimated Bedscale Active Medications: Current Medications Acetaminophen (Tylenol) 650 mg PO Q4HR PRN PRN Reason: Mild Pain Or Fever above 101 Stop: 09/12/18 03:55 Last Admin: 07/17/18 12:43 Dose: 650 mg Budesonide (Pulmicort) 0.5 mg HHN BIDRT [facility] Stop: 09/17/18 18:59 Last Admin: 07/23/18 07:31 Dose: 0.5 mg [place] Oil/[place]ian Balsam/Trypsin (Venelex) 1 appl TP DAILY [facility] Stop: 09/15/18 08:59 Last Admin: 07/22/18 18:10 Dose: Not Given Diltiazem HCl (Cardizem) 20 mg IVP Q4H PRN PRN Reason: HR Greater than 130 per min Stop: 09/12/18 03:55 Last Admin: 07/14/18 16:22 Dose: 20 mg Diltiazem HCl (Cardizem) 60 mg PO Q6HR [facility] Stop: 09/12/18 17:59 Last Admin: 07/23/18 06:06 Dose: 60 mg Enoxaparin Sodium (Lovenox) 40 mg SUBQ Q12HR [facility] Stop: 09/12/18 08:59 Last Admin: 07/23/18 08:57 Dose: 40 mg Furosemide (Lasix) 40 mg IVP DAILY [facility] Stop: 09/15/18 08:59 Last Admin: 07/23/18 09:14 Dose: 40 mg Guaifenesin (Robitussin) 100 mg PO Q4H PRN PRN Reason: Cough or Congestion Stop: 09/12/18 03:55 Piperacillin Sod/Tazobactam (Sod 3.375 gm/ Sodium Chloride) 50 mls @ 100 mls/ hr IV Q6HR [facility] Stop: 09/12/18 17:59 Last Admin: 07/23/18 06:05 Dose: 100 mls/hr Vancomycin HCl 2 gm/ Sodium (Chloride) 500 mls @ 250 mls/hr IV Q18H [facility] Stop: 09/21/18 13:59 Ibuprofen (Motrin) 800 mg PO TID PRN PRN Reason: Pain (Moderate) Stop: 09/13/18 16:40 Last Admin: 07/23/18 08:56 Dose: 800 mg Ipratropium [place] (Atrovent Neb 0.5mg/2.5ml) 0.5 mg HHN QIDRT [facility] Stop: 09/12/18 14:59 Last Admin: 07/23/18 07:30 Dose: 0.5 mg Losartan Potassium (Cozaar) 100 mg PO DAILY [facility] Stop: 09/21/18 08:59 Last Admin: 07/23/18 08:55 Dose: 100 mg Methylprednisolone Sodium Succinate (Solu-Medrol) 20 mg IVP DAILY [facility] Stop: 09/16/18 08:59 Last Admin: 07/23/18 09:21 Dose: 20 mg Metoprolol Tartrate (Lopressor) 50 mg PO BID [facility] Stop: 09/20/18 16:59 Last Admin: 07/23/18 08:56 Dose: 50 mg Miscellaneous (Clinical Monitoring) 1 ea MC DAILY PRN PRN Reason: RENAL DOSING (MOTRIN) Stop: 09/15/18 13:51 Miscellaneous (Vancomycin Iv Per Pharmacy) 1 ea MC DAILY [facility] Stop: 09/22/18 08:59 Ondansetron HCl (Zofran) 4 mg IV Q8H PRN PRN Reason: Nausea / Vomiting Stop: 09/12/18 03:55 Pantoprazole Sodium (Protonix) 40 mg IVP DAILY [facility] Stop: 09/12/18 10:30 Last Admin: 07/23/18 09:19 Dose: 40 mg Potassium Chloride (Klor-Con) 20 meq PO DAILY [facility] Stop: 09/15/18 08:59 Last Admin: 07/23/18 08:55 Dose: 20 meq Tramadol HCl (Ultram) 50 mg PO Q8HR PRN PRN Reason: Severe Pain Stop: 09/21/18 10:39 Last Admin: 07/23/18 11:12 Dose: 50 mg General: Alert, Mild distress HEENT: Mucous membr. moist/pink Neck: Supple, JVD, +2 carotid pulse wo bruit (10 cm upper sternal angle) Cardiovascular: Regular rate, Systolic murmurs, Other (uncontrolled atrial fibrillation) Abdomen: Bowel sounds, Soft, Obese Neurological: Normal gait, Strength at 5/5 X4 ext, Normal tone, Cranial nerves 3 -12 NL, Reflexes 2+ Skin: Breakdown (both legs) Assessment/Plan - Assessment Assessment: Right lower lobe pneumonia Congestive heart failure diastolic dysfunction and acute Cellulitis right leg Pleural effusion C kidney disease stage III Lactic acidosis Uncontrolled atrial fibrillation Hypertension Protein calorie malnutrition Morbid obesity Lactic acidosis IV antibiotics IV Lasix Echocardiogram WITH mitral regurgitation mild tricuspid regurgitation aortic regurgitation ejection fraction normal - Plan Plan: Start IV Lasix IV antibiotics fluid restriction echocardiogram Patient to have Zaroxolyn Discharge planning Nutritional Asmnt/Malnutr-PDOC - Dietary Evaluation Malnutrition Findings (Please click <Entered> for more info): Nutritional Asmnt/Malnutrition Start: 07/17/18 16: 49 Text: Status: Complete Freq: Protocol: Document 07/17/18 16:49 MEDARDO (Rec: 07/17/18 17:20 LCLUCIANG [email or web address]) Nutritional Asmnt/Malnutrition Patient General Information Nutritional Screening Moderate Risk Consult Diagnosis SOB, chest pain Pertinent Medical Hx/Surgical Hx HTN Subjective Information Consult received for BLE venous insufficiency ulcer. Pt seen sitting on chair, awake and alert. Pt asked snacks betoween meals and food preference provided to RD. Discussed with pt about healthy eating. Per EMR, PO intake 75-100%. Current Diet Order/ Nutrition Support cardiac, fluid 1500ml Pertinent Medications lasix, protonix, kcl, piperacillin, vancomycin Pertinent Labs 07/17 BUN 38, Cr 1.6, Glucose 125, Ca 8.4 07/16 Na 132, Na 42, Cr 1.9, Glucose 151, Ca 8.4 Nutritional Hx/Data Height 1.85 m Height (Calculated Centimeters) 185.4 Current Weight (lbs) 180.983 kg Weight (Calculated Kilograms) 181.0 Weight (Calculated Grams) 257385.4 [place] Body Weight 184 Body Mass Index (BMI) 52.6 Weight Status Morbidly Obese GI Symptoms GI Symptoms None Last BM 07/17 x 2 Difficult in: None Usual diet at home Pt stated he has been following fluid restriction about 1300-1400ml at home. Pt gaind wt d/t life change, eating fast food and longer sitting hours. Pt is ready to make change, increase physical activity and eat healthy food . Skin Integrity/Comment: open wound to right leg, edema to lower extremities. Current %PO Good (75-100%) Estimated Nutritional Goals BEE in Kcals: Adj wt of IBW Calories/Kcals/Kg 20-25 Kcals Calculated 0860-6579 Protein: Adj wt of IBW Protein g/k.8 Protein Calculated 86 Fluid: ml 1500ml per MD Nutritional Problem 1. Problem Problem obese Etiology excessive energy intake and inadequte physical activity Signs/Symptoms: BMI 52.6 Malnutrition Alert Is there a minimum of two criteria No selected? Query Text:Check all the applicable criteria. A minimum of two criteria are recommended for diagnosis of either severe or non-severe malnutrition. Malnutrition Related to Morbid Obesity Malnutrition related to morbid obesity No Intervention/Recommendation Comments 1. Continue with cardiac diet wtih fluid restriction as ordered. Recommend healthy snack choices. discussed with pt about healthy eating and life style. 2. Add Eddie BID for wound healing. 3. Monitor PO intake, wt, labs and skin integrity 4. F/U as moderate risk in 3-5 days Expected Outcomes/Goals Expected Outcomes/Goals 1. PO intake to meet at least 75% of nutritional needs. 2. Wt stability, skin to remain intact, labs to approach WNL.
--- NOTE | 2018-07-23 12:31 | Internal Medicine Prog Note ---
Internal Medicine Subjective - Subjective Patient seen and examined:: with staff, chart reviewed Patient is:: awake, verbal, in bed Patient Complaints of:: other (ble pain) Per staff patient has:: no adverse event, eating well, tolerating meds Internal Medicine Objective - Results Result Diagrams: 07/23/18 04:40 07/23/18 04:40 Recent Labs: Laboratory Last Values WBC 15.1 Th/cmm (4.8-10.8) H 07/23/18 04:40 RBC 5.16 Mil/cmm (4.30-5.70) 07/23/18 04:40 Hgb 12.5 gm/dL (12-16) 07/23/18 04:40 Hct 39.6 % (41.0-60) L 07/23/18 04:40 MCV 76.7 fl (80-99) L 07/23/18 04:40 MCH 24.2 pg (26.0-30.0) L 07/23/18 04:40 MCHC Differential 31.6 pg (28.0-36.0) 07/23/18 04:40 RDW 15.3 % (11.5-20.0) 07/23/18 04:40 Plt Count 405 Th/cmm (150-400) H 07/23/18 04:40 MPV 7.9 fl 07/23/18 04:40 Add Manual Diff YES 07/20/18 06:40 Neutrophils % 79.8 % (40.0-80.0) 07/23/18 04:40 Band Neutrophils % 2 % (0-10) 07/18/18 04:50 Lymphocytes % 13.7 % (20.0-50.0) L 07/23/18 04:40 Monocytes % 5.7 % (2.0-10.0) 07/23/18 04:40 Eosinophils % 0.8 % (0.0-5.0) 07/23/18 04:40 Basophils % 0.0 % (0.0-2.0) 07/23/18 04:40 Neutrophils (Manual) 79 % (40-80) 07/20/18 06:40 Lymphocytes 12 % (20-50) L 07/20/18 06:40 Monocytes 9 % (2-10) 07/20/18 06:40 Eosinophils 0 % (0-5) 07/15/18 06:35 Basophils 0 % (0-3) 07/16/18 04:40 Platelet Estimate ADEQUATE (NORMAL) 07/20/18 06:40 Sodium 138 mEq/L (136-145) 07/23/18 04:40 Potassium 4.2 mEq/L (3.5-5.1) 07/23/18 04:40 Chloride 102 mEq/L (98-107) 07/23/18 04:40 Carbon Dioxide 24.4 mEq/L (21.0-31.0) 07/23/18 04:40 Anion Gap 15.8 (7.0-16.0) 07/23/18 04:40 BUN 35 mg/dL (7-25) H 07/23/18 04:40 Creatinine 1.4 mg/dL (0.7-1.3) H 07/23/18 04:40 Est GFR ( Amer) > 60.0 ml/min (>90) 07/23/18 04:40 Est GFR (Non-Af Amer) 56.3 ml/min 07/23/18 04:40 BUN/Creatinine Ratio 25.0 07/23/18 04:40 Glucose 118 mg/dL (70-105) H 07/23/18 04:40 Whole Bld Lactic Acid 1.56 mmol/L (0.60-1.99) 07/15/18 15:00 Calcium 9.2 mg/dL (8.6-10.3) 07/23/18 04:40 Magnesium 2.3 mg/dL (1.9-2.7) 07/23/18 04:40 Total Bilirubin 0.8 mg/dL (0.3-1.0) 07/14/18 00:20 AST 53 U/L (13-39) H 07/14/18 00:20 ALT 62 U/L (7-52) H 07/14/18 00:20 Alkaline Phosphatase 92 U/L (34-104) 07/14/18 00:20 Troponin I 0.12 ng/mL (0.01-0.05) H* D 07/15/18 06:35 B-Natriuretic Peptide 537.0 pg/mL (5.0-100.0) H 07/17/18 07:00 Total Protein 6.4 gm/dL (6.0-8.3) 07/14/18 00:20 Albumin 3.5 gm/dL (4.2-5.5) L 07/14/18 00:20 Globulin 2.9 gm/dL 07/14/18 00:20 Albumin/Globulin Ratio 1.2 (1.0-1.8) 07/14/18 00:20 Triglycerides 48 mg/dL (<150) 07/14/18 00:20 Cholesterol 61 mg/dL (<200) 07/14/18 00:20 LDL Cholesterol Direct 36 mg/dL (75-193) L 07/14/18 00:20 HDL Cholesterol 22 mg/dL (23-92) L 07/14/18 00:20 Vancomycin Trough 9.2 ug/mL (5-10) 07/19/18 19:00 - Physical Exam Vitals and I&O: Vital Signs Temp 97.3 F 07/23/18 07:52 Pulse 94 07/23/18 12:07 Resp 18 07/23/18 12:07 BP 154/99 07/23/18 09:14 Pulse Ox 97 07/23/18 12:07 Intake & Output 07/22/18 07/23/18 07/23/18 18:59 06:59 18:59 Intake Total 940 50 700 Balance 940 50 700 Weight (lbs) 177.355 kg 177.355 kg Intake: Intake, IV Amount 100 50 Piperacillin Sodium/ 100 50 Tazobact 3.375 gm In Sodium Chloride 0.9% 50 ml @ 100 mls/hr IV Q6HR [facility] Rx#:[id number] Oral 480 700 Albumin 360 Other: # Voids 4 4 # Bowel Movements 1 Weight Source Estimated Bedscale Active Medications: Current Medications Acetaminophen (Tylenol) 650 mg PO Q4HR PRN PRN Reason: Mild Pain Or Fever above 101 Stop: 09/12/18 03:55 Last Admin: 07/17/18 12:43 Dose: 650 mg Budesonide (Pulmicort) 0.5 mg HHN BIDRT [facility] Stop: 09/17/18 18:59 Last Admin: 07/23/18 07:31 Dose: 0.5 mg [place] Oil/[place] Balsam/Trypsin (Venelex) 1 appl TP DAILY [facility] Stop: 09/15/18 08:59 Last Admin: 07/22/18 18:10 Dose: Not Given Diltiazem HCl (Cardizem) 20 mg IVP Q4H PRN PRN Reason: HR Greater than 130 per min Stop: 09/12/18 03:55 Last Admin: 07/14/18 16:22 Dose: 20 mg Diltiazem HCl (Cardizem) 60 mg PO Q6HR [facility] Stop: 09/12/18 17:59 Last Admin: 07/23/18 06:06 Dose: 60 mg Enoxaparin Sodium (Lovenox) 40 mg SUBQ Q12HR [facility] Stop: 09/12/18 08:59 Last Admin: 07/23/18 08:57 Dose: 40 mg Furosemide (Lasix) 40 mg IVP DAILY [facility] Stop: 09/15/18 08:59 Last Admin: 07/23/18 09:14 Dose: 40 mg Guaifenesin (Robitussin) 100 mg PO Q4H PRN PRN Reason: Cough or Congestion Stop: 09/12/18 03:55 Piperacillin Sod/Tazobactam (Sod 3.375 gm/ Sodium Chloride) 50 mls @ 100 mls/ hr IV Q6HR [facility] Stop: 09/12/18 17:59 Last Admin: 07/23/18 06:05 Dose: 100 mls/hr Vancomycin HCl 2 gm/ Sodium (Chloride) 500 mls @ 250 mls/hr IV Q18H [facility] Stop: 09/21/18 13:59 Ibuprofen (Motrin) 800 mg PO TID PRN PRN Reason: Pain (Moderate) Stop: 09/13/18 16:40 Last Admin: 07/23/18 08:56 Dose: 800 mg Ipratropium [place] (Atrovent Neb 0.5mg/2.5ml) 0.5 mg HHN QIDRT [facility] Stop: 09/12/18 14:59 Last Admin: 07/23/18 12:05 Dose: 0.5 mg Losartan Potassium (Cozaar) 100 mg PO DAILY [facility] Stop: 09/21/18 08:59 Last Admin: 07/23/18 08:55 Dose: 100 mg Metoprolol Tartrate (Lopressor) 50 mg PO BID [facility] Stop: 09/20/18 16:59 Last Admin: 07/23/18 08:56 Dose: 50 mg Miscellaneous (Clinical Monitoring) 1 ea MC DAILY PRN PRN Reason: RENAL DOSING (MOTRIN) Stop: 09/15/18 13:51 Miscellaneous (Vancomycin Iv Per Pharmacy) 1 ea MC DAILY [facility] Stop: 09/22/18 08:59 Ondansetron HCl (Zofran) 4 mg IV Q8H PRN PRN Reason: Nausea / Vomiting Stop: 09/12/18 03:55 Pantoprazole Sodium (Protonix) 40 mg PO DAILY [facility] Stop: 09/22/18 08:59 Potassium Chloride (Klor-Con) 20 meq PO DAILY [facility] Stop: 09/15/18 08:59 Last Admin: 07/23/18 08:55 Dose: 20 meq Prednisone (Prednisone) 10 mg PO DAILY [facility] Stop: 07/29/18 08:59 Tramadol HCl (Ultram) 50 mg PO Q8HR PRN PRN Reason: Severe Pain Stop: 09/21/18 10:39 Last Admin: 07/23/18 11:12 Dose: 50 mg General: alert, appears older HEENT: NC/AT, PERRLA Neck: Supple Lungs: wheezing, ronchi Cardiovascular: RRR, Normal S1, Normal S2, without murmur Abdomen: soft, non-tender, non-distended, positive bowel sound Extremities: clear, excoriation, other (multiple open sores ble) Neurological: alert Internal Medicine Assmt/Plan - Assessment Assessment: - Assessment Assessment: Bacteremia Group G streptococcus Multiple open sores with Providencia Rettgeri Acute urinary tract infection acute renal failure morbidly obese anemia hypomagnesemia morbid obesity hypertension Acute diastolic congestive heart failure asthma chronic obstructive pulmonary disease type 2 diabetes. - Plan Plan: - Plan Plan: AM labs continue with wound care CM to arrange dc planning to SNF vs LTAC continue iv vanco/zosyn pain mgmt continue current plan of care Nutritional Asmnt/Malnutr-PDOC - Dietary Evaluation Malnutrition Findings (Please click <Entered> for more info): Nutritional Asmnt/Malnutrition Start: 07/17/18 16: 49 Text: Status: Complete Freq: Protocol: Document 07/17/18 16:49 LCHENG (Rec: 07/17/18 17:20 [email or web address]) Nutritional Asmnt/Malnutrition Patient General Information Nutritional Screening Moderate Risk Consult Diagnosis SOB, chest pain Pertinent Medical Hx/Surgical Hx HTN Subjective Information Consult received for BLE venous insufficiency ulcer. Pt seen sitting on chair, awake and alert. Pt asked snacks betoween meals and food preference provided to RD. Discussed with pt about healthy eating. Per EMR, PO intake 75-100%. Current Diet Order/ Nutrition Support cardiac, fluid 1500ml Pertinent Medications lasix, protonix, kcl, piperacillin, vancomycin Pertinent Labs 07/17 BUN 38, Cr 1.6, Glucose 125, Ca 8.4 07/16 Na 132, Na 42, Cr 1.9, Glucose 151, Ca 8.4 Nutritional Hx/Data Height 1.85 m Height (Calculated Centimeters) 185.4 Current Weight (lbs) 180.983 kg Weight (Calculated Kilograms) 181.0 Weight (Calculated Grams) 267304.4 [place] Body Weight 184 Body Mass Index (BMI) 52.6 Weight Status Morbidly Obese GI Symptoms GI Symptoms None Last BM 07/17 x 2 Difficult in: None Usual diet at home Pt stated he has been following fluid restriction about 1300-1400ml at home. Pt gaind wt d/t life change, eating fast food and longer sitting hours. Pt is ready to make change, increase physical activity and eat healthy food . Skin Integrity/Comment: open wound to right leg, edema to lower extremities. Current %PO Good (75-100%) Estimated Nutritional Goals BEE in Kcals: Adj wt of IBW Calories/Kcals/Kg 20-25 Kcals Calculated 3135-3959 Protein: Adj wt of IBW Protein g/k.8 Protein Calculated 86 Fluid: ml 1500ml per MD Nutritional Problem 1. Problem Problem obese Etiology excessive energy intake and inadequte physical activity Signs/Symptoms: BMI 52.6 Malnutrition Alert Is there a minimum of two criteria No selected? Query Text:Check all the applicable criteria. A minimum of two criteria are recommended for diagnosis of either severe or non-severe malnutrition. Malnutrition Related to Morbid Obesity Malnutrition related to morbid obesity No Intervention/Recommendation Comments 1. Continue with cardiac diet wtih fluid restriction as ordered. Recommend healthy snack choices. discussed with pt about healthy eating and life style. 2. Add Eddie BID for wound healing. 3. Monitor PO intake, wt, labs and skin integrity 4. F/U as moderate risk in 3-5 days Expected Outcomes/Goals Expected Outcomes/Goals 1. PO intake to meet at least 75% of nutritional needs. 2. Wt stability, skin to remain intact, labs to approach WNL.
[2018-07-23] MEDS: Venelex 60gm Tube TP SCH (14:16)
[2018-07-24] MEDS: Diltiazem 30 mg Tab PO SCH ×4 (06:45→23:39)
[2018-07-24] MEDS: Ipratropium Neb 0.5 mg/2.5 mL UD HHN SCH ×4 (07:05→19:16)
[2018-07-24] MEDS: Budesonide 0.5 Mg/2 mL Ud HHN SCH ×2 (07:05→19:10)
[2018-07-24] MEDS: Enoxaparin 40 mg/0.4 mL 0.4mL Syr SUBQ SCH ×2 (08:24→20:42)
[2018-07-24] MEDS: Pantoprazole 40 mg/Packet PO SCH (08:24)
[2018-07-24] MEDS: Potassium Chloride 20 mEq ER Tab PO SCH (08:25)
[2018-07-24] MEDS: Venelex 60gm Tube TP SCH (08:25)
--- NOTE | 2018-07-24 09:50 | General Progress Note ---
Subjective - Review of Systems Service Date: 07/24/18 Subjective: Patient has less shortness of breath still complaining of swelling both lower extremities and open wound on the right leg Patient feels better patient complained of burning in both the leg Blood pressure and control start patient on Lopressor 50 mg twice a day losartan 100 mg daily Objective - Results Result Diagrams: 07/23/18 04:40 07/23/18 04:40 Recent Labs: Laboratory Last Values WBC 15.1 Th/cmm (4.8-10.8) H 07/23/18 04:40 RBC 5.16 Mil/cmm (4.30-5.70) 07/23/18 04:40 Hgb 12.5 gm/dL (12-16) 07/23/18 04:40 Hct 39.6 % (41.0-60) L 07/23/18 04:40 MCV 76.7 fl (80-99) L 07/23/18 04:40 MCH 24.2 pg (26.0-30.0) L 07/23/18 04:40 MCHC Differential 31.6 pg (28.0-36.0) 07/23/18 04:40 RDW 15.3 % (11.5-20.0) 07/23/18 04:40 Plt Count 405 Th/cmm (150-400) H 07/23/18 04:40 MPV 7.9 fl 07/23/18 04:40 Add Manual Diff YES 07/20/18 06:40 Neutrophils % 79.8 % (40.0-80.0) 07/23/18 04:40 Band Neutrophils % 2 % (0-10) 07/18/18 04:50 Lymphocytes % 13.7 % (20.0-50.0) L 07/23/18 04:40 Monocytes % 5.7 % (2.0-10.0) 07/23/18 04:40 Eosinophils % 0.8 % (0.0-5.0) 07/23/18 04:40 Basophils % 0.0 % (0.0-2.0) 07/23/18 04:40 Neutrophils (Manual) 79 % (40-80) 07/20/18 06:40 Lymphocytes 12 % (20-50) L 07/20/18 06:40 Monocytes 9 % (2-10) 07/20/18 06:40 Eosinophils 0 % (0-5) 07/15/18 06:35 Basophils 0 % (0-3) 07/16/18 04:40 Platelet Estimate ADEQUATE (NORMAL) 07/20/18 06:40 Sodium 138 mEq/L (136-145) 07/23/18 04:40 Potassium 4.2 mEq/L (3.5-5.1) 07/23/18 04:40 Chloride 102 mEq/L (98-107) 07/23/18 04:40 Carbon Dioxide 24.4 mEq/L (21.0-31.0) 07/23/18 04:40 Anion Gap 15.8 (7.0-16.0) 07/23/18 04:40 BUN 35 mg/dL (7-25) H 07/23/18 04:40 Creatinine 1.4 mg/dL (0.7-1.3) H 07/23/18 04:40 Est GFR ( Amer) > 60.0 ml/min (>90) 07/23/18 04:40 Est GFR (Non-Af Amer) 56.3 ml/min 07/23/18 04:40 BUN/Creatinine Ratio 25.0 07/23/18 04:40 Glucose 118 mg/dL (70-105) H 07/23/18 04:40 Whole Bld Lactic Acid 1.56 mmol/L (0.60-1.99) 07/15/18 15:00 Calcium 9.2 mg/dL (8.6-10.3) 07/23/18 04:40 Magnesium 2.3 mg/dL (1.9-2.7) 07/23/18 04:40 Total Bilirubin 0.8 mg/dL (0.3-1.0) 07/14/18 00:20 AST 53 U/L (13-39) H 07/14/18 00:20 ALT 62 U/L (7-52) H 07/14/18 00:20 Alkaline Phosphatase 92 U/L (34-104) 07/14/18 00:20 Troponin I 0.12 ng/mL (0.01-0.05) H* D 07/15/18 06:35 B-Natriuretic Peptide 537.0 pg/mL (5.0-100.0) H 07/17/18 07:00 Total Protein 6.4 gm/dL (6.0-8.3) 07/14/18 00:20 Albumin 3.5 gm/dL (4.2-5.5) L 07/14/18 00:20 Globulin 2.9 gm/dL 07/14/18 00:20 Albumin/Globulin Ratio 1.2 (1.0-1.8) 07/14/18 00:20 Triglycerides 48 mg/dL (<150) 07/14/18 00:20 Cholesterol 61 mg/dL (<200) 07/14/18 00:20 LDL Cholesterol Direct 36 mg/dL (75-193) L 07/14/18 00:20 HDL Cholesterol 22 mg/dL (23-92) L 07/14/18 00:20 Vancomycin Trough 12.5 ug/mL (5-10) H 07/23/18 13:00 - Physical Exam Vitals and I&O: Vital Signs Temp 97.3 F 07/24/18 08:00 Pulse 105 07/24/18 08:25 Resp 20 07/24/18 08:00 BP 147/83 07/24/18 08:25 Pulse Ox 95 07/24/18 08:00 Intake & Output 07/23/18 07/24/18 07/24/18 18:59 06:59 18:59 Intake Total 2300 170 Balance 2300 170 Weight (lbs) 177.355 kg 177.355 kg Intake: Intake, IV Amount 600 50 Piperacillin Sodium/ 100 50 Tazobact 3.375 gm In Sodium Chloride 0.9% 50 ml @ 100 mls/hr IV Q6HR [facility] Rx#:[id number] Vancomycin HCl 2 gm In 500 Sodium Chloride 0.9% 500 ml @ 250 mls/hr IV Q18H [facility] Rx#:[id number] Oral 1700 120 Other: # Voids 5 # Bowel Movements 1 Weight Source Bedscale Bedscale Active Medications: Current Medications Acetaminophen (Tylenol) 650 mg PO Q4HR PRN PRN Reason: Mild Pain Or Fever above 101 Stop: 09/12/18 03:55 Last Admin: 07/17/18 12:43 Dose: 650 mg Budesonide (Pulmicort) 0.5 mg HHN BIDRT [facility] Stop: 09/17/18 18:59 Last Admin: 07/24/18 07:05 Dose: 0.5 mg [place] Oil/[place] Balsam/Trypsin (Venelex) 1 appl TP DAILY [facility] Stop: 09/15/18 08:59 Last Admin: 07/24/18 08:25 Dose: 1 appl Diltiazem HCl (Cardizem) 20 mg IVP Q4H PRN PRN Reason: HR Greater than 130 per min Stop: 09/12/18 03:55 Last Admin: 07/14/18 16:22 Dose: 20 mg Diltiazem HCl (Cardizem) 60 mg PO Q6HR [facility] Stop: 09/12/18 17:59 Last Admin: 07/24/18 06:45 Dose: 60 mg Enoxaparin Sodium (Lovenox) 40 mg SUBQ Q12HR [facility] Stop: 09/12/18 08:59 Last Admin: 07/24/18 08:24 Dose: 40 mg Furosemide (Lasix) 40 mg IVP DAILY [facility] Stop: 09/15/18 08:59 Last Admin: 07/24/18 08:24 Dose: 40 mg Guaifenesin (Robitussin) 100 mg PO Q4H PRN PRN Reason: Cough or Congestion Stop: 09/12/18 03:55 Piperacillin Sod/Tazobactam (Sod 3.375 gm/ Sodium Chloride) 50 mls @ 100 mls/ hr IV Q6HR [facility] Stop: 09/12/18 17:59 Last Admin: 07/24/18 06:44 Dose: 100 mls/hr Vancomycin HCl 2 gm/ Sodium (Chloride) 500 mls @ 250 mls/hr IV Q18H [facility] Stop: 07/24/18 12:00 Last Admin: 07/24/18 08:24 Dose: 250 mls/hr Vancomycin HCl 2 gm/ Sodium (Chloride) 500 mls @ 250 mls/hr IV Q12H [facility] Stop: 09/22/18 20:59 Ibuprofen (Motrin) 800 mg PO TID PRN PRN Reason: Pain (Moderate) Stop: 09/13/18 16:40 Last Admin: 07/23/18 08:56 Dose: 800 mg Ipratropium [place] (Atrovent Neb 0.5mg/2.5ml) 0.5 mg HHN QIDRT [facility] Stop: 09/12/18 14:59 Last Admin: 07/24/18 07:05 Dose: 0.5 mg Losartan Potassium (Cozaar) 100 mg PO DAILY [facility] Stop: 09/21/18 08:59 Last Admin: 07/24/18 08:25 Dose: 100 mg Metoprolol Tartrate (Lopressor) 50 mg PO BID [facility] Stop: 09/20/18 16:59 Last Admin: 07/24/18 08:25 Dose: 50 mg Miscellaneous (Clinical Monitoring) 1 ea [facility] DAILY PRN PRN Reason: RENAL DOSING (MOTRIN) Stop: 09/15/18 13:51 Miscellaneous (Vancomycin Iv Per Pharmacy) 1 ea MC DAILY [facility] Stop: 09/22/18 08:59 Ondansetron HCl (Zofran) 4 mg IV Q8H PRN PRN Reason: Nausea / Vomiting Stop: 09/12/18 03:55 Pantoprazole Sodium (Protonix) 40 mg PO DAILY [facility] Stop: 09/22/18 08:59 Last Admin: 07/24/18 08:24 Dose: 40 mg Potassium Chloride (Klor-Con) 20 meq PO DAILY [facility] Stop: 09/15/18 08:59 Last Admin: 07/24/18 08:25 Dose: 20 meq Prednisone (Deltasone) 10 mg PO DAILY [facility] Stop: 07/29/18 08:59 Last Admin: 07/24/18 08:25 Dose: 10 mg Tramadol HCl (Ultram) 50 mg PO Q8HR PRN PRN Reason: Severe Pain Stop: 09/21/18 10:39 Last Admin: 07/23/18 11:12 Dose: 50 mg General: Alert, Mild distress HEENT: Mucous membr. moist/pink Neck: Supple, JVD, +2 carotid pulse wo bruit (10 cm upper sternal angle) Cardiovascular: Regular rate, Systolic murmurs, Other (uncontrolled atrial fibrillation) Abdomen: Bowel sounds, Soft, Obese Neurological: Normal gait, Strength at 5/5 X4 ext, Normal tone, Cranial nerves 3 -12 NL, Reflexes 2+ Skin: Breakdown (both legs) Assessment/Plan - Assessment Assessment: Right lower lobe pneumonia Congestive heart failure diastolic dysfunction and acute Cellulitis right leg Pleural effusion C kidney disease stage III Lactic acidosis Uncontrolled atrial fibrillation Hypertension Protein calorie malnutrition Morbid obesity Lactic acidosis IV antibiotics IV Lasix Echocardiogram WITH mitral regurgitation mild tricuspid regurgitation aortic regurgitation ejection fraction normal - Plan Plan: Start IV Lasix IV antibiotics fluid restriction echocardiogram Patient to have Zaroxolyn Discharge planning Nutritional Asmnt/Malnutr-PDOC - Dietary Evaluation Malnutrition Findings (Please click <Entered> for more info): Nutritional Asmnt/Malnutrition Start: 07/17/18 16: 49 Text: Status: Complete Freq: Protocol: Document 07/17/18 16:49 MEDARDO (Rec: 07/17/18 17:20 [email or web address] [email or web address]) Nutritional Asmnt/Malnutrition Patient General Information Nutritional Screening Moderate Risk Consult Diagnosis SOB, chest pain Pertinent Medical Hx/Surgical Hx HTN Subjective Information Consult received for BLE venous insufficiency ulcer. Pt seen sitting on chair, awake and alert. Pt asked snacks betoween meals and food preference provided to RD. Discussed with pt about healthy eating. Per EMR, PO intake 75-100%. Current Diet Order/ Nutrition Support cardiac, fluid 1500ml Pertinent Medications lasix, protonix, kcl, piperacillin, vancomycin Pertinent Labs 07/17 BUN 38, Cr 1.6, Glucose 125, Ca 8.4 07/16 Na 132, Na 42, Cr 1.9, Glucose 151, Ca 8.4 Nutritional Hx/Data Height 1.85 m Height (Calculated Centimeters) 185.4 Current Weight (lbs) 180.983 kg Weight (Calculated Kilograms) 181.0 Weight (Calculated Grams) 431463.4 [place] Body Weight 184 Body Mass Index (BMI) 52.6 Weight Status Morbidly Obese GI Symptoms GI Symptoms None Last BM 07/17 x 2 Difficult in: None Usual diet at home Pt stated he has been following fluid restriction about 1300-1400ml at home. Pt gaind wt d/t life change, eating fast food and longer sitting hours. Pt is ready to make change, increase physical activity and eat healthy food . Skin Integrity/Comment: open wound to right leg, edema to lower extremities. Current %PO Good (75-100%) Estimated Nutritional Goals BEE in Kcals: Adj wt of IBW Calories/Kcals/Kg 20-25 Kcals Calculated 5399-4361 Protein: Adj wt of IBW Protein g/k.8 Protein Calculated 86 Fluid: ml 1500ml per MD Nutritional Problem 1. Problem Problem obese Etiology excessive energy intake and inadequte physical activity Signs/Symptoms: BMI 52.6 Malnutrition Alert Is there a minimum of two criteria No selected? Query Text:Check all the applicable criteria. A minimum of two criteria are recommended for diagnosis of either severe or non-severe malnutrition. Malnutrition Related to Morbid Obesity Malnutrition related to morbid obesity No Intervention/Recommendation Comments 1. Continue with cardiac diet wtih fluid restriction as ordered. Recommend healthy snack choices. discussed with pt about healthy eating and life style. 2. Add Eddie BID for wound healing. 3. Monitor PO intake, wt, labs and skin integrity 4. F/U as moderate risk in 3-5 days Expected Outcomes/Goals Expected Outcomes/Goals 1. PO intake to meet at least 75% of nutritional needs. 2. Wt stability, skin to remain intact, labs to approach WNL.
--- NOTE | 2018-07-24 12:45 | Internal Medicine Prog Note ---
Internal Medicine Subjective - Subjective Patient seen and examined:: with staff, chart reviewed Patient is:: awake, verbal, in bed Patient Complaints of:: other (ble pain) Per staff patient has:: no adverse event, eating well, tolerating meds Internal Medicine Objective - Results Result Diagrams: 07/23/18 04:40 07/23/18 04:40 Recent Labs: Laboratory Last Values WBC 15.1 Th/cmm (4.8-10.8) H 07/23/18 04:40 RBC 5.16 Mil/cmm (4.30-5.70) 07/23/18 04:40 Hgb 12.5 gm/dL (12-16) 07/23/18 04:40 Hct 39.6 % (41.0-60) L 07/23/18 04:40 MCV 76.7 fl (80-99) L 07/23/18 04:40 MCH 24.2 pg (26.0-30.0) L 07/23/18 04:40 MCHC Differential 31.6 pg (28.0-36.0) 07/23/18 04:40 RDW 15.3 % (11.5-20.0) 07/23/18 04:40 Plt Count 405 Th/cmm (150-400) H 07/23/18 04:40 MPV 7.9 fl 07/23/18 04:40 Add Manual Diff YES 07/20/18 06:40 Neutrophils % 79.8 % (40.0-80.0) 07/23/18 04:40 Band Neutrophils % 2 % (0-10) 07/18/18 04:50 Lymphocytes % 13.7 % (20.0-50.0) L 07/23/18 04:40 Monocytes % 5.7 % (2.0-10.0) 07/23/18 04:40 Eosinophils % 0.8 % (0.0-5.0) 07/23/18 04:40 Basophils % 0.0 % (0.0-2.0) 07/23/18 04:40 Neutrophils (Manual) 79 % (40-80) 07/20/18 06:40 Lymphocytes 12 % (20-50) L 07/20/18 06:40 Monocytes 9 % (2-10) 07/20/18 06:40 Eosinophils 0 % (0-5) 07/15/18 06:35 Basophils 0 % (0-3) 07/16/18 04:40 Platelet Estimate ADEQUATE (NORMAL) 07/20/18 06:40 Sodium 138 mEq/L (136-145) 07/23/18 04:40 Potassium 4.2 mEq/L (3.5-5.1) 07/23/18 04:40 Chloride 102 mEq/L (98-107) 07/23/18 04:40 Carbon Dioxide 24.4 mEq/L (21.0-31.0) 07/23/18 04:40 Anion Gap 15.8 (7.0-16.0) 07/23/18 04:40 BUN 35 mg/dL (7-25) H 07/23/18 04:40 Creatinine 1.4 mg/dL (0.7-1.3) H 07/23/18 04:40 Est GFR ( Amer) > 60.0 ml/min (>90) 07/23/18 04:40 Est GFR (Non-Af Amer) 56.3 ml/min 07/23/18 04:40 BUN/Creatinine Ratio 25.0 07/23/18 04:40 Glucose 118 mg/dL (70-105) H 07/23/18 04:40 Whole Bld Lactic Acid 1.56 mmol/L (0.60-1.99) 07/15/18 15:00 Calcium 9.2 mg/dL (8.6-10.3) 07/23/18 04:40 Magnesium 2.3 mg/dL (1.9-2.7) 07/23/18 04:40 Total Bilirubin 0.8 mg/dL (0.3-1.0) 07/14/18 00:20 AST 53 U/L (13-39) H 07/14/18 00:20 ALT 62 U/L (7-52) H 07/14/18 00:20 Alkaline Phosphatase 92 U/L (34-104) 07/14/18 00:20 Troponin I 0.12 ng/mL (0.01-0.05) H* D 07/15/18 06:35 B-Natriuretic Peptide 537.0 pg/mL (5.0-100.0) H 07/17/18 07:00 Total Protein 6.4 gm/dL (6.0-8.3) 07/14/18 00:20 Albumin 3.5 gm/dL (4.2-5.5) L 07/14/18 00:20 Globulin 2.9 gm/dL 07/14/18 00:20 Albumin/Globulin Ratio 1.2 (1.0-1.8) 07/14/18 00:20 Triglycerides 48 mg/dL (<150) 07/14/18 00:20 Cholesterol 61 mg/dL (<200) 07/14/18 00:20 LDL Cholesterol Direct 36 mg/dL (75-193) L 07/14/18 00:20 HDL Cholesterol 22 mg/dL (23-92) L 07/14/18 00:20 Vancomycin Trough 12.5 ug/mL (5-10) H 07/23/18 13:00 - Physical Exam Vitals and I&O: Vital Signs Temp 98.2 F 07/24/18 12:00 Pulse 106 07/24/18 12:01 Resp 19 07/24/18 12:00 BP 134/90 07/24/18 12:00 Pulse Ox 96 07/24/18 12:00 Intake & Output 07/23/18 07/24/18 07/24/18 18:59 06:59 18:59 Intake Total 2300 170 50 Balance 2300 170 50 Weight (lbs) 177.355 kg 177.355 kg Intake: Intake, IV Amount 600 50 50 Piperacillin Sodium/ 100 50 50 Tazobact 3.375 gm In Sodium Chloride 0.9% 50 ml @ 100 mls/hr IV Q6HR [facility] Rx#:[id number] Vancomycin HCl 2 gm In 500 Sodium Chloride 0.9% 500 ml @ 250 mls/hr IV Q18H [facility] Rx#:[id number] Oral 1700 120 Other: # Voids 5 # Bowel Movements 1 Weight Source Bedscale Bedscale Active Medications: Current Medications Acetaminophen (Tylenol) 650 mg PO Q4HR PRN PRN Reason: Mild Pain Or Fever above 101 Stop: 09/12/18 03:55 Last Admin: 07/17/18 12:43 Dose: 650 mg Budesonide (Pulmicort) 0.5 mg HHN BIDRT [facility] Stop: 09/17/18 18:59 Last Admin: 07/24/18 07:05 Dose: 0.5 mg [place] Oil/[place] Balsam/Trypsin (Venelex) 1 appl TP DAILY [facility] Stop: 09/15/18 08:59 Last Admin: 07/24/18 08:25 Dose: 1 appl Diltiazem HCl (Cardizem) 20 mg IVP Q4H PRN PRN Reason: HR Greater than 130 per min Stop: 09/12/18 03:55 Last Admin: 07/14/18 16:22 Dose: 20 mg Diltiazem HCl (Cardizem) 60 mg PO Q6HR [facility] Stop: 09/12/18 17:59 Last Admin: 07/24/18 12:01 Dose: 60 mg Enoxaparin Sodium (Lovenox) 40 mg SUBQ Q12HR [facility] Stop: 09/12/18 08:59 Last Admin: 07/24/18 08:24 Dose: 40 mg Furosemide (Lasix) 40 mg IVP DAILY [facility] Stop: 09/15/18 08:59 Last Admin: 07/24/18 08:24 Dose: 40 mg Guaifenesin (Robitussin) 100 mg PO Q4H PRN PRN Reason: Cough or Congestion Stop: 09/12/18 03:55 Piperacillin Sod/Tazobactam (Sod 3.375 gm/ Sodium Chloride) 50 mls @ 100 mls/ hr IV Q6HR [facility] Stop: 09/12/18 17:59 Last Admin: 07/24/18 12:01 Dose: 100 mls/hr Vancomycin HCl 2 gm/ Sodium (Chloride) 500 mls @ 250 mls/hr IV Q12H [facility] Stop: 09/22/18 20:59 Ibuprofen (Motrin) 800 mg PO TID PRN PRN Reason: Pain (Moderate) Stop: 09/13/18 16:40 Last Admin: 07/24/18 10:18 Dose: 800 mg Ipratropium [place] (Atrovent Neb 0.5mg/2.5ml) 0.5 mg HHN QIDRT [facility] Stop: 09/12/18 14:59 Last Admin: 07/24/18 10:50 Dose: 0.5 mg Losartan Potassium (Cozaar) 100 mg PO DAILY [facility] Stop: 09/21/18 08:59 Last Admin: 07/24/18 08:25 Dose: 100 mg Metoprolol Tartrate (Lopressor) 50 mg PO BID [facility] Stop: 09/20/18 16:59 Last Admin: 07/24/18 08:25 Dose: 50 mg Miscellaneous (Clinical Monitoring) 1 ea MC DAILY PRN PRN Reason: RENAL DOSING (MOTRIN) Stop: 09/15/18 13:51 Miscellaneous (Vancomycin Iv Per Pharmacy) 1 ea MC DAILY [facility] Stop: 09/22/18 08:59 Ondansetron HCl (Zofran) 4 mg IV Q8H PRN PRN Reason: Nausea / Vomiting Stop: 09/12/18 03:55 Pantoprazole Sodium (Protonix) 40 mg PO DAILY [facility] Stop: 09/22/18 08:59 Last Admin: 07/24/18 08:24 Dose: 40 mg Potassium Chloride (Klor-Con) 20 meq PO DAILY [facility] Stop: 09/15/18 08:59 Last Admin: 07/24/18 08:25 Dose: 20 meq Prednisone (Deltasone) 10 mg PO DAILY [facility] Stop: 07/29/18 08:59 Last Admin: 07/24/18 08:25 Dose: 10 mg Tramadol HCl (Ultram) 50 mg PO Q8HR PRN PRN Reason: Severe Pain Stop: 09/21/18 10:39 Last Admin: 07/23/18 11:12 Dose: 50 mg General: alert, appears older HEENT: NC/AT, PERRLA Neck: Supple Lungs: wheezing, ronchi Cardiovascular: RRR, Normal S1, Normal S2, without murmur Abdomen: soft, non-tender, non-distended, positive bowel sound Extremities: clear, excoriation, other (multiple open sores ble) Neurological: alert Internal Medicine Assmt/Plan - Assessment Assessment: - Assessment Assessment: Bacteremia Group G streptococcus Multiple open sores with Providencia Rettgeri Acute urinary tract infection acute renal failure morbidly obese anemia hypomagnesemia morbid obesity hypertension Acute diastolic congestive heart failure asthma chronic obstructive pulmonary disease type 2 diabetes. - Plan Plan: - Plan Plan: AM labs continue with wound care CM to arrange dc planning to SNF vs LTAC continue iv vanco/zosyn pain mgmt continue current plan of care had long discussion w pt, answered all questions Nutritional Asmnt/Malnutr-PDOC - Dietary Evaluation Malnutrition Findings (Please click <Entered> for more info): Nutritional Asmnt/Malnutrition Start: 07/17/18 16: 49 Text: Status: Complete Freq: Protocol: Document 07/17/18 16:49 LCHENG (Rec: 07/17/18 17:20 LCHENG [email or web address]) Nutritional Asmnt/Malnutrition Patient General Information Nutritional Screening Moderate Risk Consult Diagnosis SOB, chest pain Pertinent Medical Hx/Surgical Hx HTN Subjective Information Consult received for BLE venous insufficiency ulcer. Pt seen sitting on chair, awake and alert. Pt asked snacks betoween meals and food preference provided to RD. Discussed with pt about healthy eating. Per EMR, PO intake 75-100%. Current Diet Order/ Nutrition Support cardiac, fluid 1500ml Pertinent Medications lasix, protonix, kcl, piperacillin, vancomycin Pertinent Labs 07/17 BUN 38, Cr 1.6, Glucose 125, Ca 8.4 07/16 Na 132, Na 42, Cr 1.9, Glucose 151, Ca 8.4 Nutritional Hx/Data Height 1.85 m Height (Calculated Centimeters) 185.4 Current Weight (lbs) 180.983 kg Weight (Calculated Kilograms) 181.0 Weight (Calculated Grams) 846488.4 [place] Body Weight 184 Body Mass Index (BMI) 52.6 Weight Status Morbidly Obese GI Symptoms GI Symptoms None Last BM 07/17 x 2 Difficult in: None Usual diet at home Pt stated he has been following fluid restriction about 1300-1400ml at home. Pt gaind wt d/t life change, eating fast food and longer sitting hours. Pt is ready to make change, increase physical activity and eat healthy food . Skin Integrity/Comment: open wound to right leg, edema to lower extremities. Current %PO Good (75-100%) Estimated Nutritional Goals BEE in Kcals: Adj wt of IBW Calories/Kcals/Kg 20-25 Kcals Calculated 3907-1147 Protein: Adj wt of IBW Protein g/k.8 Protein Calculated 86 Fluid: ml 1500ml per MD Nutritional Problem 1. Problem Problem obese Etiology excessive energy intake and inadequte physical activity Signs/Symptoms: BMI 52.6 Malnutrition Alert Is there a minimum of two criteria No selected? Query Text:Check all the applicable criteria. A minimum of two criteria are recommended for diagnosis of either severe or non-severe malnutrition. Malnutrition Related to Morbid Obesity Malnutrition related to morbid obesity No Intervention/Recommendation Comments 1. Continue with cardiac diet wtih fluid restriction as ordered. Recommend healthy snack choices. discussed with pt about healthy eating and life style. 2. Add Eddie BID for wound healing. 3. Monitor PO intake, wt, labs and skin integrity 4. F/U as moderate risk in 3-5 days Expected Outcomes/Goals Expected Outcomes/Goals 1. PO intake to meet at least 75% of nutritional needs. 2. Wt stability, skin to remain intact, labs to approach WNL.
[2018-07-24] MEDS ORDERED: GLUCAGON HCl 1 MG KIT IM PRN (12:56)
[2018-07-24] MEDS ORDERED: Dextrose 50% 50 mL Abboject IVP PRN (12:56)
[2018-07-24] MEDS: INSULIN LISPRO SLIDING SCALE 100 UNITS/ML UNIT SUBQ SCH ×2 (17:15→20:59)
--- NOTE | 2018-07-24 17:19 | Progress Notes ---
DATE: 07/23/2018 SUBJECTIVE: The patient appears to be doing okay, in no acute distress. OBJECTIVE: VITAL SIGNS: Temperature is 97.0, pulse 71, respirations 16, blood pressure is 149/86, saturation is 99%. CHEST: Good breath sounds. No wheezing or crackles. HEART: Regular rate and rhythm. ABDOMEN: Soft. EXTREMITIES: 2+ edema. ASSESSMENT: 1. Respiratory failure. 2. Pulmonary edema. 3. Peripheral edema. 4. Weakness and obesity. PLAN: Continue nebulizer treatment, pulmonary toilet, supportive care, diuresis, start on antibiotics. JOB# [id number]
[2018-07-25] MEDS: Diltiazem 30 mg Tab PO SCH ×2 (06:32→11:31)
[2018-07-25] MEDS: INSULIN LISPRO SLIDING SCALE 100 UNITS/ML UNIT SUBQ SCH ×4 (06:38→20:44)
[2018-07-25] MEDS: Ipratropium Neb 0.5 mg/2.5 mL UD HHN SCH ×4 (07:04→18:20)
[2018-07-25] MEDS: Budesonide 0.5 Mg/2 mL Ud HHN SCH ×2 (07:04→18:20)
[2018-07-25] MEDS: Potassium Chloride 20 mEq ER Tab PO SCH (08:22)
[2018-07-25] MEDS: Pantoprazole 40 mg/Packet PO SCH (08:22)
[2018-07-25] MEDS: Enoxaparin 40 mg/0.4 mL 0.4mL Syr SUBQ SCH (08:23)
[2018-07-25 08:28] LABS: % BASOPHILS 0.9 % (0.0-2.0); % EOSINOPHILS 1.2 % (0.0-5.0); % LYMPHOCYTES 17.6 % (20.0-50.0); % MONOCYTES 7.4 % (2.0-10.0); % NEUTROPHILS 72.9 % (40.0-80.0); BASOPHILE ABSOLUTE 0.1 Th/cumm (0-0.2); EOSINOPHILE ABSOLUTE 0.2 Th/cmm (0.1-0.4); HEMATOCRIT 40.8 % (41.0-60); HEMOGLOBIN 12.9 gm/dL (12-16); LYMPHOCYTE ABSOLUTE 2.3 Th/cmm (1.5-3.0); MEAN CELL VOLUME 77.9 fl (80-99); MEAN CORPUSCULAR HEMOGLOBIN 24.6 pg (26.0-30.0); MEAN CORPUSCULAR HGB CONC 31.6 pg (28.0-36.0); MEAN PLATELET VOLUME 8.2 fl; NEUTROPHILE ABSOLUTE 9.6 Th/cmm (1.8-8.0); PLATELET COUNT 332 Th/cmm (150-400); RED BLOOD COUNT 5.24 Mil/cmm (4.30-5.70); WHITE BLOOD COUNT 13.2 Th/cmm (4.8-10.8)
[2018-07-25 08:39] LABS: ANION GAP 12.8 (7.0-16.0); CALCIUM SERUM 8.4 mg/dL (8.6-10.3); CREATININE - SERUM 1.7 mg/dL (0.7-1.3); GFR AFRICAN-AMERICAN 54.5 ml/min (>90); POTASSIUM SERUM 3.8 mEq/L (3.5-5.1)
--- NOTE | 2018-07-25 12:33 | Internal Medicine Prog Note ---
Internal Medicine Subjective - Subjective Patient seen and examined:: with staff, chart reviewed, other (upset) Patient is:: awake, verbal, in bed Patient Complaints of:: other (ble pain) Per staff patient has:: no adverse event, eating well, tolerating meds Internal Medicine Objective - Results Result Diagrams: 07/25/18 08:00 07/25/18 08:00 Recent Labs: Laboratory Last Values WBC 13.2 Th/cmm (4.8-10.8) H 07/25/18 08:00 RBC 5.24 Mil/cmm (4.30-5.70) 07/25/18 08:00 Hgb 12.9 gm/dL (12-16) 07/25/18 08:00 Hct 40.8 % (41.0-60) L 07/25/18 08:00 MCV 77.9 fl (80-99) L 07/25/18 08:00 MCH 24.6 pg (26.0-30.0) L 07/25/18 08:00 MCHC Differential 31.6 pg (28.0-36.0) 07/25/18 08:00 RDW 16.0 % (11.5-20.0) 07/25/18 08:00 Plt Count 332 Th/cmm (150-400) 07/25/18 08:00 MPV 8.2 fl 07/25/18 08:00 Add Manual Diff YES 07/20/18 06:40 Neutrophils % 72.9 % (40.0-80.0) 07/25/18 08:00 Band Neutrophils % 2 % (0-10) 07/18/18 04:50 Lymphocytes % 17.6 % (20.0-50.0) L 07/25/18 08:00 Monocytes % 7.4 % (2.0-10.0) 07/25/18 08:00 Eosinophils % 1.2 % (0.0-5.0) 07/25/18 08:00 Basophils % 0.9 % (0.0-2.0) 07/25/18 08:00 Neutrophils (Manual) 79 % (40-80) 07/20/18 06:40 Lymphocytes 12 % (20-50) L 07/20/18 06:40 Monocytes 9 % (2-10) 07/20/18 06:40 Eosinophils 0 % (0-5) 07/15/18 06:35 Basophils 0 % (0-3) 07/16/18 04:40 Platelet Estimate ADEQUATE (NORMAL) 07/20/18 06:40 Sodium 138 mEq/L (136-145) 07/25/18 08:00 Potassium 3.8 mEq/L (3.5-5.1) 07/25/18 08:00 Chloride 104 mEq/L (98-107) 07/25/18 08:00 Carbon Dioxide 25.0 mEq/L (21.0-31.0) 07/25/18 08:00 Anion Gap 12.8 (7.0-16.0) 07/25/18 08:00 BUN 39 mg/dL (7-25) H 07/25/18 08:00 Creatinine 1.7 mg/dL (0.7-1.3) H 07/25/18 08:00 Est GFR ( Amer) 54.5 ml/min (>90) 07/25/18 08:00 Est GFR (Non-Af Amer) 45.0 ml/min 07/25/18 08:00 BUN/Creatinine Ratio 22.9 07/25/18 08:00 Glucose 162 mg/dL (70-105) H 07/25/18 08:00 POC Glucose 125 MG/DL (70 - 105) H 07/25/18 11:36 Whole Bld Lactic Acid 1.56 mmol/L (0.60-1.99) 07/15/18 15:00 Calcium 8.4 mg/dL (8.6-10.3) L 07/25/18 08:00 Magnesium 2.3 mg/dL (1.9-2.7) 07/23/18 04:40 Total Bilirubin 0.8 mg/dL (0.3-1.0) 07/14/18 00:20 AST 53 U/L (13-39) H 07/14/18 00:20 ALT 62 U/L (7-52) H 07/14/18 00:20 Alkaline Phosphatase 92 U/L (34-104) 07/14/18 00:20 Troponin I 0.12 ng/mL (0.01-0.05) H* D 07/15/18 06:35 B-Natriuretic Peptide 537.0 pg/mL (5.0-100.0) H 07/17/18 07:00 Total Protein 6.4 gm/dL (6.0-8.3) 07/14/18 00:20 Albumin 3.5 gm/dL (4.2-5.5) L 07/14/18 00:20 Globulin 2.9 gm/dL 07/14/18 00:20 Albumin/Globulin Ratio 1.2 (1.0-1.8) 07/14/18 00:20 Triglycerides 48 mg/dL (<150) 07/14/18 00:20 Cholesterol 61 mg/dL (<200) 07/14/18 00:20 LDL Cholesterol Direct 36 mg/dL (75-193) L 07/14/18 00:20 HDL Cholesterol 22 mg/dL (23-92) L 07/14/18 00:20 Vancomycin Trough 23.5 ug/mL (5-10) H 07/25/18 08:00 - Physical Exam Vitals and I&O: Vital Signs Temp 96.3 F 07/25/18 09:16 Pulse 87 07/25/18 11:31 Resp 20 07/25/18 10:53 BP 120/72 07/25/18 09:16 Pulse Ox 97 07/25/18 10:53 Intake & Output 07/24/18 07/25/18 07/25/18 18:59 06:59 18:59 Intake Total 1150 1500 Balance 1150 1500 Weight (lbs) 177.355 kg 177.355 kg Intake: Intake, IV Amount 150 50 Piperacillin Sodium/ 150 50 Tazobact 3.375 gm In Sodium Chloride 0.9% 50 ml @ 100 mls/hr IV Q6HR [facility] Rx#:[id number] Oral 1000 1450 Other: # Voids 5 5 # Bowel Movements 1 1 Weight Source Bedscale Bedscale Active Medications: Current Medications Acetaminophen (Tylenol) 650 mg PO Q4HR PRN PRN Reason: Mild Pain Or Fever above 101 Stop: 09/12/18 03:55 Last Admin: 07/17/18 12:43 Dose: 650 mg Budesonide (Pulmicort) 0.5 mg HHN BIDRT [facility] Stop: 09/17/18 18:59 Last Admin: 07/25/18 07:04 Dose: 0.5 mg [place] Oil/[place] Balsam/Trypsin (Venelex) 1 appl TP DAILY [facility] Stop: 09/15/18 08:59 Last Admin: 07/24/18 08:25 Dose: 1 appl Dextrose (D50w) 50 ml IVP PRN PRN PRN Reason: BS below 70 & not tolerate po Stop: 09/22/18 12:55 Dextrose (Glutose 40%) 18.75 gm PO PRN PRN PRN Reason: BS below 70 & tolerate po Stop: 09/22/18 12:55 Diltiazem HCl (Cardizem) 20 mg IVP Q4H PRN PRN Reason: HR Greater than 130 per min Stop: 09/12/18 03:55 Last Admin: 07/14/18 16:22 Dose: 20 mg Diltiazem HCl (Cardizem) 60 mg PO Q6HR [facility] Stop: 09/12/18 17:59 Last Admin: 07/25/18 11:31 Dose: 60 mg Furosemide (Lasix) 40 mg PO DAILY [facility] Stop: 09/24/18 08:59 Glucagon (Glucagen) 1 mg IM PRN PRN PRN Reason: BS below 70&dextrose ineffecti Stop: 09/22/18 12:55 Guaifenesin (Robitussin) 100 mg PO Q4H PRN PRN Reason: Cough or Congestion Stop: 09/12/18 03:55 Ibuprofen (Motrin) 800 mg PO TID PRN PRN Reason: Pain (Moderate) Stop: 09/13/18 16:40 Last Admin: 07/25/18 08:21 Dose: 800 mg Insulin Human Lispro (Humalog Insulin Sliding Scale) 0 units SUBQ ACHS [facility]; Protocol Stop: 09/22/18 16:29 Last Admin: 07/25/18 11:57 Dose: Not Given Ipratropium [place] (Atrovent Neb 0.5mg/2.5ml) 0.5 mg HHN QIDRT [facility] Stop: 09/12/18 14:59 Last Admin: 07/25/18 10:53 Dose: 0.5 mg Levofloxacin (Levaquin) 250 mg PO DAILY [facility] Stop: 09/24/18 08:59 Losartan Potassium (Cozaar) 100 mg PO DAILY [facility] Stop: 09/21/18 08:59 Last Admin: 07/25/18 08:49 Dose: 100 mg Metoprolol Tartrate (Lopressor) 50 mg PO BID [facility] Stop: 09/20/18 16:59 Last Admin: 07/25/18 08:49 Dose: 50 mg Miscellaneous (Clinical Monitoring) 1 ea MC DAILY PRN PRN Reason: RENAL DOSING (MOTRIN) Stop: 09/15/18 13:51 Pantoprazole Sodium (Protonix) 40 mg PO DAILY [facility] Stop: 09/22/18 08:59 Last Admin: 07/25/18 08:22 Dose: 40 mg Potassium Chloride (Klor-Con) 20 meq PO DAILY [facility] Stop: 09/15/18 08:59 Last Admin: 07/25/18 08:22 Dose: Not Given Tramadol HCl (Ultram) 50 mg PO Q8HR PRN PRN Reason: Severe Pain Stop: 09/21/18 10:39 Last Admin: 07/23/18 11:12 Dose: 50 mg Trimethoprim/Sulfamethoxazole (Bactrim Ds) 1 tab PO DAILY [facility] Stop: 09/24/18 08:59 General: alert, appears older HEENT: NC/AT, PERRLA Neck: Supple Lungs: CTAB Cardiovascular: RRR, Normal S1, Normal S2, without murmur Abdomen: soft, non-tender, non-distended, positive bowel sound Extremities: clear, excoriation, other (multiple open sores ble) Neurological: alert Internal Medicine Assmt/Plan - Assessment Assessment: - Assessment Assessment: Bacteremia Group G streptococcus- treated Multiple open sores with Providencia Rettgeri Acute urinary tract infection acute renal failure-stable, better morbidly obese anemia hypomagnesemia morbid obesity hypertension Acute diastolic congestive heart failure asthma chronic obstructive pulmonary disease type 2 diabetes. - Plan Plan: - Plan Plan: AM labs continue with wound care CM to arrange dc planning to SNF , refused to go home continue on abx wound care pain mgmt continue current plan of care had long discussion w pt, answered all questions again, refused dc Nutritional Asmnt/Malnutr-PDOC - Dietary Evaluation Malnutrition Findings (Please click <Entered> for more info): Nutritional Asmnt/Malnutrition Start: 07/17/18 16: 49 Text: Status: Complete Freq: Protocol: Document 07/17/18 16:49 LCLUCIANG (Rec: 07/17/18 17:20 MEDARDO [email or web address]) Nutritional Asmnt/Malnutrition Patient General Information Nutritional Screening Moderate Risk Consult Diagnosis SOB, chest pain Pertinent Medical Hx/Surgical Hx HTN Subjective Information Consult received for BLE venous insufficiency ulcer. Pt seen sitting on chair, awake and alert. Pt asked snacks betoween meals and food preference provided to RD. Discussed with pt about healthy eating. Per EMR, PO intake 75-100%. Current Diet Order/ Nutrition Support cardiac, fluid 1500ml Pertinent Medications lasix, protonix, kcl, piperacillin, vancomycin Pertinent Labs 07/17 BUN 38, Cr 1.6, Glucose 125, Ca 8.4 07/16 Na 132, Na 42, Cr 1.9, Glucose 151, Ca 8.4 Nutritional Hx/Data Height 1.85 m Height (Calculated Centimeters) 185.4 Current Weight (lbs) 180.983 kg Weight (Calculated Kilograms) 181.0 Weight (Calculated Grams) 629728.4 [place] Body Weight 184 Body Mass Index (BMI) 52.6 Weight Status Morbidly Obese GI Symptoms GI Symptoms None Last BM 07/17 x 2 Difficult in: None Usual diet at home Pt stated he has been following fluid restriction about 1300-1400ml at home. Pt gaind wt d/t life change, eating fast food and longer sitting hours. Pt is ready to make change, increase physical activity and eat healthy food . Skin Integrity/Comment: open wound to right leg, edema to lower extremities. Current %PO Good (75-100%) Estimated Nutritional Goals BEE in Kcals: Adj wt of IBW Calories/Kcals/Kg 20-25 Kcals Calculated 6971-2250 Protein: Adj wt of IBW Protein g/k.8 Protein Calculated 86 Fluid: ml 1500ml per MD Nutritional Problem 1. Problem Problem obese Etiology excessive energy intake and inadequte physical activity Signs/Symptoms: BMI 52.6 Malnutrition Alert Is there a minimum of two criteria No selected? Query Text:Check all the applicable criteria. A minimum of two criteria are recommended for diagnosis of either severe or non-severe malnutrition. Malnutrition Related to Morbid Obesity Malnutrition related to morbid obesity No Intervention/Recommendation Comments 1. Continue with cardiac diet wtih fluid restriction as ordered. Recommend healthy snack choices. discussed with pt about healthy eating and life style. 2. Add Eddie BID for wound healing. 3. Monitor PO intake, wt, labs and skin integrity 4. F/U as moderate risk in 3-5 days Expected Outcomes/Goals Expected Outcomes/Goals 1. PO intake to meet at least 75% of nutritional needs. 2. Wt stability, skin to remain intact, labs to approach WNL.
--- NOTE | 2018-07-25 13:04 | General Progress Note ---
Subjective - Review of Systems Service Date: 07/25/18 Subjective: Patient has less shortness of breath still complaining of swelling both lower extremities and open wound on the right leg Patient feels better patient complained of burning in both the leg Blood pressure and control start patient on Lopressor 50 mg twice a day losartan 100 mg daily Objective - Results Result Diagrams: 07/25/18 08:00 07/25/18 08:00 Recent Labs: Laboratory Last Values WBC 13.2 Th/cmm (4.8-10.8) H 07/25/18 08:00 RBC 5.24 Mil/cmm (4.30-5.70) 07/25/18 08:00 Hgb 12.9 gm/dL (12-16) 07/25/18 08:00 Hct 40.8 % (41.0-60) L 07/25/18 08:00 MCV 77.9 fl (80-99) L 07/25/18 08:00 MCH 24.6 pg (26.0-30.0) L 07/25/18 08:00 MCHC Differential 31.6 pg (28.0-36.0) 07/25/18 08:00 RDW 16.0 % (11.5-20.0) 07/25/18 08:00 Plt Count 332 Th/cmm (150-400) 07/25/18 08:00 MPV 8.2 fl 07/25/18 08:00 Add Manual Diff YES 07/20/18 06:40 Neutrophils % 72.9 % (40.0-80.0) 07/25/18 08:00 Band Neutrophils % 2 % (0-10) 07/18/18 04:50 Lymphocytes % 17.6 % (20.0-50.0) L 07/25/18 08:00 Monocytes % 7.4 % (2.0-10.0) 07/25/18 08:00 Eosinophils % 1.2 % (0.0-5.0) 07/25/18 08:00 Basophils % 0.9 % (0.0-2.0) 07/25/18 08:00 Neutrophils (Manual) 79 % (40-80) 07/20/18 06:40 Lymphocytes 12 % (20-50) L 07/20/18 06:40 Monocytes 9 % (2-10) 07/20/18 06:40 Eosinophils 0 % (0-5) 07/15/18 06:35 Basophils 0 % (0-3) 07/16/18 04:40 Platelet Estimate ADEQUATE (NORMAL) 07/20/18 06:40 Sodium 138 mEq/L (136-145) 07/25/18 08:00 Potassium 3.8 mEq/L (3.5-5.1) 07/25/18 08:00 Chloride 104 mEq/L (98-107) 07/25/18 08:00 Carbon Dioxide 25.0 mEq/L (21.0-31.0) 07/25/18 08:00 Anion Gap 12.8 (7.0-16.0) 07/25/18 08:00 BUN 39 mg/dL (7-25) H 07/25/18 08:00 Creatinine 1.7 mg/dL (0.7-1.3) H 07/25/18 08:00 Est GFR ( Amer) 54.5 ml/min (>90) 07/25/18 08:00 Est GFR (Non-Af Amer) 45.0 ml/min 07/25/18 08:00 BUN/Creatinine Ratio 22.9 07/25/18 08:00 Glucose 162 mg/dL (70-105) H 07/25/18 08:00 POC Glucose 125 MG/DL (70 - 105) H 07/25/18 11:36 Whole Bld Lactic Acid 1.56 mmol/L (0.60-1.99) 07/15/18 15:00 Calcium 8.4 mg/dL (8.6-10.3) L 07/25/18 08:00 Magnesium 2.3 mg/dL (1.9-2.7) 07/23/18 04:40 Total Bilirubin 0.8 mg/dL (0.3-1.0) 07/14/18 00:20 AST 53 U/L (13-39) H 07/14/18 00:20 ALT 62 U/L (7-52) H 07/14/18 00:20 Alkaline Phosphatase 92 U/L (34-104) 07/14/18 00:20 Troponin I 0.12 ng/mL (0.01-0.05) H* D 07/15/18 06:35 B-Natriuretic Peptide 537.0 pg/mL (5.0-100.0) H 07/17/18 07:00 Total Protein 6.4 gm/dL (6.0-8.3) 07/14/18 00:20 Albumin 3.5 gm/dL (4.2-5.5) L 07/14/18 00:20 Globulin 2.9 gm/dL 07/14/18 00:20 Albumin/Globulin Ratio 1.2 (1.0-1.8) 07/14/18 00:20 Triglycerides 48 mg/dL (<150) 07/14/18 00:20 Cholesterol 61 mg/dL (<200) 07/14/18 00:20 LDL Cholesterol Direct 36 mg/dL (75-193) L 07/14/18 00:20 HDL Cholesterol 22 mg/dL (23-92) L 07/14/18 00:20 Vancomycin Trough 23.5 ug/mL (5-10) H 07/25/18 08:00 - Physical Exam Vitals and I&O: Vital Signs Temp 96.3 F 07/25/18 09:16 Pulse 87 07/25/18 11:31 Resp 20 07/25/18 10:53 BP 120/72 07/25/18 09:16 Pulse Ox 97 07/25/18 10:53 Intake & Output 07/24/18 07/25/18 07/25/18 18:59 06:59 18:59 Intake Total 1150 1500 Balance 1150 1500 Weight (lbs) 177.355 kg 177.355 kg Intake: Intake, IV Amount 150 50 Piperacillin Sodium/ 150 50 Tazobact 3.375 gm In Sodium Chloride 0.9% 50 ml @ 100 mls/hr IV Q6HR [facility] Rx#:[id number] Oral 1000 1450 Other: # Voids 5 5 # Bowel Movements 1 1 Weight Source Bedscale Bedscale Active Medications: Current Medications Acetaminophen (Tylenol) 650 mg PO Q4HR PRN PRN Reason: Mild Pain Or Fever above 101 Stop: 09/12/18 03:55 Last Admin: 07/17/18 12:43 Dose: 650 mg Budesonide (Pulmicort) 0.5 mg HHN BIDRT [facility] Stop: 09/17/18 18:59 Last Admin: 07/25/18 07:04 Dose: 0.5 mg [place] Oil/[place] Balsam/Trypsin (Venelex) 1 appl TP DAILY [facility] Stop: 09/15/18 08:59 Last Admin: 07/24/18 08:25 Dose: 1 appl Dextrose (D50w) 50 ml IVP PRN PRN PRN Reason: BS below 70 & not tolerate po Stop: 09/22/18 12:55 Dextrose (Glutose 40%) 18.75 gm PO PRN PRN PRN Reason: BS below 70 & tolerate po Stop: 09/22/18 12:55 Diltiazem HCl (Cardizem) 20 mg IVP Q4H PRN PRN Reason: HR Greater than 130 per min Stop: 09/12/18 03:55 Last Admin: 07/14/18 16:22 Dose: 20 mg Diltiazem HCl (Cardizem) 60 mg PO Q6HR [facility] Stop: 09/12/18 17:59 Last Admin: 07/25/18 11:31 Dose: 60 mg Furosemide (Lasix) 40 mg PO DAILY [facility] Stop: 09/24/18 08:59 Glucagon (Glucagen) 1 mg IM PRN PRN PRN Reason: BS below 70&dextrose ineffecti Stop: 09/22/18 12:55 Guaifenesin (Robitussin) 100 mg PO Q4H PRN PRN Reason: Cough or Congestion Stop: 09/12/18 03:55 Ibuprofen (Motrin) 800 mg PO TID PRN PRN Reason: Pain (Moderate) Stop: 09/13/18 16:40 Last Admin: 07/25/18 08:21 Dose: 800 mg Insulin Human Lispro (Humalog Insulin Sliding Scale) 0 units SUBQ ACHS [facility]; Protocol Stop: 09/22/18 16:29 Last Admin: 07/25/18 11:57 Dose: Not Given Ipratropium [place] (Atrovent Neb 0.5mg/2.5ml) 0.5 mg HHN QIDRT [facility] Stop: 09/12/18 14:59 Last Admin: 07/25/18 10:53 Dose: 0.5 mg Levofloxacin (Levaquin) 250 mg PO DAILY [facility] Stop: 09/24/18 08:59 Losartan Potassium (Cozaar) 100 mg PO DAILY [facility] Stop: 09/21/18 08:59 Last Admin: 07/25/18 08:49 Dose: 100 mg Metoprolol Tartrate (Lopressor) 50 mg PO BID [facility] Stop: 09/20/18 16:59 Last Admin: 07/25/18 08:49 Dose: 50 mg Miscellaneous (Clinical Monitoring) 1 ea MC DAILY PRN PRN Reason: RENAL DOSING (MOTRIN) Stop: 09/15/18 13:51 Pantoprazole Sodium (Protonix) 40 mg PO DAILY [facility] Stop: 09/22/18 08:59 Last Admin: 07/25/18 08:22 Dose: 40 mg Potassium Chloride (Klor-Con) 20 meq PO DAILY [facility] Stop: 09/15/18 08:59 Last Admin: 07/25/18 08:22 Dose: Not Given Tramadol HCl (Ultram) 50 mg PO Q8HR PRN PRN Reason: Severe Pain Stop: 09/21/18 10:39 Last Admin: 07/23/18 11:12 Dose: 50 mg Trimethoprim/Sulfamethoxazole (Bactrim Ds) 1 tab PO DAILY [facility] Stop: 09/24/18 08:59 General: Alert, Mild distress HEENT: Mucous membr. moist/pink Neck: Supple, JVD, +2 carotid pulse wo bruit (10 cm upper sternal angle) Cardiovascular: Regular rate, Systolic murmurs, Other (uncontrolled atrial fibrillation) Abdomen: Bowel sounds, Soft, Obese Neurological: Normal gait, Strength at 5/5 X4 ext, Normal tone, Cranial nerves 3 -12 NL, Reflexes 2+ Skin: Breakdown (both legs) Assessment/Plan - Assessment Assessment: Right lower lobe pneumonia Congestive heart failure diastolic dysfunction and acute Cellulitis right leg Pleural effusion C kidney disease stage III Lactic acidosis Uncontrolled atrial fibrillation Hypertension Protein calorie malnutrition Morbid obesity Lactic acidosis IV antibiotics IV Lasix Echocardiogram WITH mitral regurgitation mild tricuspid regurgitation aortic regurgitation ejection fraction normal - Plan Plan: Start IV Lasix IV antibiotics fluid restriction echocardiogram Patient to have Zaroxolyn Discharge planning Nutritional Asmnt/Malnutr-PDOC - Dietary Evaluation Malnutrition Findings (Please click <Entered> for more info): Nutritional Asmnt/Malnutrition Start: 07/17/18 16: 49 Text: Status: Complete Freq: Protocol: Document 07/17/18 16:49 MEDARDO (Rec: 07/17/18 17:20 MEDARDO [id number]) Nutritional Asmnt/Malnutrition Patient General Information Nutritional Screening Moderate Risk Consult Diagnosis SOB, chest pain Pertinent Medical Hx/Surgical Hx HTN Subjective Information Consult received for BLE venous insufficiency ulcer. Pt seen sitting on chair, awake and alert. Pt asked snacks betoween meals and food preference provided to RD. Discussed with pt about healthy eating. Per EMR, PO intake 75-100%. Current Diet Order/ Nutrition Support cardiac, fluid 1500ml Pertinent Medications lasix, protonix, kcl, piperacillin, vancomycin Pertinent Labs 07/17 BUN 38, Cr 1.6, Glucose 125, Ca 8.4 07/16 Na 132, Na 42, Cr 1.9, Glucose 151, Ca 8.4 Nutritional Hx/Data Height 1.85 m Height (Calculated Centimeters) 185.4 Current Weight (lbs) 180.983 kg Weight (Calculated Kilograms) 181.0 Weight (Calculated Grams) 828006.4 [place] Body Weight 184 Body Mass Index (BMI) 52.6 Weight Status Morbidly Obese GI Symptoms GI Symptoms None Last BM 07/17 x 2 Difficult in: None Usual diet at home Pt stated he has been following fluid restriction about 1300-1400ml at home. Pt gaind wt d/t life change, eating fast food and longer sitting hours. Pt is ready to make change, increase physical activity and eat healthy food . Skin Integrity/Comment: open wound to right leg, edema to lower extremities. Current %PO Good (75-100%) Estimated Nutritional Goals BEE in Kcals: Adj wt of IBW Calories/Kcals/Kg 20-25 Kcals Calculated 5493-5779 Protein: Adj wt of IBW Protein g/k.8 Protein Calculated 86 Fluid: ml 1500ml per MD Nutritional Problem 1. Problem Problem obese Etiology excessive energy intake and inadequte physical activity Signs/Symptoms: BMI 52.6 Malnutrition Alert Is there a minimum of two criteria No selected? Query Text:Check all the applicable criteria. A minimum of two criteria are recommended for diagnosis of either severe or non-severe malnutrition. Malnutrition Related to Morbid Obesity Malnutrition related to morbid obesity No Intervention/Recommendation Comments 1. Continue with cardiac diet wtih fluid restriction as ordered. Recommend healthy snack choices. discussed with pt about healthy eating and life style. 2. Add Eddie BID for wound healing. 3. Monitor PO intake, wt, labs and skin integrity 4. F/U as moderate risk in 3-5 days Expected Outcomes/Goals Expected Outcomes/Goals 1. PO intake to meet at least 75% of nutritional needs. 2. Wt stability, skin to remain intact, labs to approach WNL.
--- NOTE | 2018-07-25 14:53 | Progress Notes ---
DATE: 07/24/2018 SUBJECTIVE: The patient appears to be doing okay, comfortable, in no distress. OBJECTIVE: VITAL SIGNS: Temperature 97.6, pulse 86, respiratory rate of 18, blood pressure , saturation 96%. CHEST: Good breath sounds. No wheezing, no crackles. HEART: Regular rate and rhythm. ABDOMEN: Soft, no tenderness. EXTREMITIES: 2+ edema with some erythema. IMPRESSION: 1. Respiratory failure. 2. Cellulitis. 3. Pulmonary edema. 4. Peripheral edema. 5. Weakness. 6. Obesity. PLAN: 1. Continue supportive care. 2. Antibiotics, nebulizer treatment and pulmonary toilet. JOB# [id number]
[2018-07-26] MEDS: Diltiazem 30 mg Tab PO SCH ×5 (00:05→17:11)
[2018-07-26] MEDS: INSULIN LISPRO SLIDING SCALE 100 UNITS/ML UNIT SUBQ SCH ×4 (06:31→20:59)
[2018-07-26] MEDS: Budesonide 0.5 Mg/2 mL Ud HHN SCH ×2 (06:57→19:05)
[2018-07-26] MEDS: Ipratropium Neb 0.5 mg/2.5 mL UD HHN SCH ×4 (06:57→19:20)
[2018-07-26] MEDS: Pantoprazole 40 mg/Packet PO SCH (08:44)
[2018-07-26] MEDS: Potassium Chloride 20 mEq ER Tab PO SCH (08:45)
[2018-07-26] MEDS: Sulfamethoxazole/TMP 800/160mg Tab PO SCH (08:45)
[2018-07-26 09:08] LABS: % BASOPHILS 0.6 % (0.0-2.0); % LYMPHOCYTES 12.2 % (20.0-50.0); % MONOCYTES 6.8 % (2.0-10.0); % NEUTROPHILS 79.4 % (40.0-80.0); BASOPHILE ABSOLUTE 0.1 Th/cumm (0-0.2); EOSINOPHILE ABSOLUTE 0.1 Th/cmm (0.1-0.4); HEMATOCRIT 38.5 % (41.0-60); HEMOGLOBIN 12.3 gm/dL (12-16); LYMPHOCYTE ABSOLUTE 1.6 Th/cmm (1.5-3.0); MEAN CELL VOLUME 76.8 fl (80-99); MEAN CORPUSCULAR HEMOGLOBIN 24.5 pg (26.0-30.0); MEAN CORPUSCULAR HGB CONC 31.9 pg (28.0-36.0); MEAN PLATELET VOLUME 7.9 fl; MONOCYTE ABSOLUTE 0.9 Th/cmm (0.3-1.0); NEUTROPHILE ABSOLUTE 10.7 Th/cmm (1.8-8.0); PLATELET COUNT 325 Th/cmm (150-400); RED BLOOD COUNT 5.02 Mil/cmm (4.30-5.70); RED CELL DISTRIBUTION WIDTH 16.3 % (11.5-20.0); WHITE BLOOD COUNT 13.4 Th/cmm (4.8-10.8)
[2018-07-26 09:28] LABS: ANION GAP 14.6 (7.0-16.0); BUN - UREA NITROGEN 29 mg/dL (7-25); CALCIUM SERUM 8.6 mg/dL (8.6-10.3); CARBON DIOXIDE 23.2 mEq/L (21.0-31.0); CHLORIDE 105 mEq/L (98-107); CREATININE - SERUM 1.3 mg/dL (0.7-1.3); GFR AFRICAN-AMERICAN > 60.0 ml/min (>90); GFR NON AFRICAN-AMERICAN > 60.0 ml/min; GLUCOSE 142 mg/dL (70-105); POTASSIUM SERUM 3.8 mEq/L (3.5-5.1); SODIUM SERUM 139 mEq/L (136-145)
--- NOTE | 2018-07-26 10:28 | Progress Notes ---
DATE: 07/25/2018 SUBJECTIVE: The patient appears to be doing okay. OBJECTIVE: GENERAL: Comfortable, in no distress. VITAL SIGNS: Temperature is 96.3, pulse 96, respiratory rate ____, blood pressure 120/72, saturation 97%. CHEST: Good breath sounds. No wheezing or crackles. HEART: Regular rate and rhythm. ABDOMEN: Soft. No tenderness. EXTREMITIES: No edema. LABORATORY AND DIAGNOSTIC DATA: WBC is 13.2, hemoglobin is 12.9. Sodium ____, potassium 3.8, BUN ____, creatinine 1.7. IMPRESSION: 1. Respiratory failure. 2. Pulmonary edema. 3. Peripheral edema. 4. Cellulitis of lower extremities. 5. Obesity. PLAN: 1. Continue supportive care. 2. Antibiotics. 3. Nebulizer treatment. 4. Supportive care. 5. Diuresis. JOB# [id number]
--- NOTE | 2018-07-26 12:20 | Internal Medicine Prog Note ---
Internal Medicine Subjective - Subjective Patient seen and examined:: with staff, chart reviewed Patient is:: awake, verbal, in bed Patient Complaints of:: other (ble pain) Per staff patient has:: no adverse event, eating well, tolerating meds Internal Medicine Objective - Results Result Diagrams: 07/26/18 09:00 07/26/18 09:00 Recent Labs: Laboratory Last Values WBC 13.4 Th/cmm (4.8-10.8) H 07/26/18 09:00 RBC 5.02 Mil/cmm (4.30-5.70) 07/26/18 09:00 Hgb 12.3 gm/dL (12-16) 07/26/18 09:00 Hct 38.5 % (41.0-60) L 07/26/18 09:00 MCV 76.8 fl (80-99) L 07/26/18 09:00 MCH 24.5 pg (26.0-30.0) L 07/26/18 09:00 MCHC Differential 31.9 pg (28.0-36.0) 07/26/18 09:00 RDW 16.3 % (11.5-20.0) 07/26/18 09:00 Plt Count 325 Th/cmm (150-400) 07/26/18 09:00 MPV 7.9 fl 07/26/18 09:00 Add Manual Diff YES 07/20/18 06:40 Neutrophils % 79.4 % (40.0-80.0) 07/26/18 09:00 Band Neutrophils % 2 % (0-10) 07/18/18 04:50 Lymphocytes % 12.2 % (20.0-50.0) L 07/26/18 09:00 Monocytes % 6.8 % (2.0-10.0) 07/26/18 09:00 Eosinophils % 1.0 % (0.0-5.0) 07/26/18 09:00 Basophils % 0.6 % (0.0-2.0) 07/26/18 09:00 Neutrophils (Manual) 79 % (40-80) 07/20/18 06:40 Lymphocytes 12 % (20-50) L 07/20/18 06:40 Monocytes 9 % (2-10) 07/20/18 06:40 Eosinophils 0 % (0-5) 07/15/18 06:35 Basophils 0 % (0-3) 07/16/18 04:40 Platelet Estimate ADEQUATE (NORMAL) 07/20/18 06:40 Sodium 139 mEq/L (136-145) 07/26/18 09:00 Potassium 3.8 mEq/L (3.5-5.1) 07/26/18 09:00 Chloride 105 mEq/L (98-107) 07/26/18 09:00 Carbon Dioxide 23.2 mEq/L (21.0-31.0) 07/26/18 09:00 Anion Gap 14.6 (7.0-16.0) 07/26/18 09:00 BUN 29 mg/dL (7-25) H 07/26/18 09:00 Creatinine 1.3 mg/dL (0.7-1.3) 07/26/18 09:00 Est GFR ( Amer) > 60.0 ml/min (>90) 07/26/18 09:00 Est GFR (Non-Af Amer) > 60.0 ml/min 07/26/18 09:00 BUN/Creatinine Ratio 22.3 07/26/18 09:00 Glucose 142 mg/dL (70-105) H 07/26/18 09:00 POC Glucose 81 MG/DL (70 - 105) 07/26/18 07:28 Whole Bld Lactic Acid 1.56 mmol/L (0.60-1.99) 07/15/18 15:00 Calcium 8.6 mg/dL (8.6-10.3) 07/26/18 09:00 Magnesium 2.3 mg/dL (1.9-2.7) 07/23/18 04:40 Total Bilirubin 0.8 mg/dL (0.3-1.0) 07/14/18 00:20 AST 53 U/L (13-39) H 07/14/18 00:20 ALT 62 U/L (7-52) H 07/14/18 00:20 Alkaline Phosphatase 92 U/L (34-104) 07/14/18 00:20 Troponin I 0.12 ng/mL (0.01-0.05) H* D 07/15/18 06:35 B-Natriuretic Peptide 537.0 pg/mL (5.0-100.0) H 07/17/18 07:00 Total Protein 6.4 gm/dL (6.0-8.3) 07/14/18 00:20 Albumin 3.5 gm/dL (4.2-5.5) L 07/14/18 00:20 Globulin 2.9 gm/dL 07/14/18 00:20 Albumin/Globulin Ratio 1.2 (1.0-1.8) 07/14/18 00:20 Triglycerides 48 mg/dL (<150) 07/14/18 00:20 Cholesterol 61 mg/dL (<200) 07/14/18 00:20 LDL Cholesterol Direct 36 mg/dL (75-193) L 07/14/18 00:20 HDL Cholesterol 22 mg/dL (23-92) L 07/14/18 00:20 Vancomycin Trough 14.8 ug/mL (5-10) H 07/26/18 09:00 - Physical Exam Vitals and I&O: Vital Signs Temp 98.1 F 07/26/18 11:56 Pulse 67 07/26/18 11:56 Resp 20 07/26/18 11:56 BP 136/85 07/26/18 11:56 Pulse Ox 97 07/26/18 11:56 Intake & Output 07/25/18 07/26/18 07/26/18 18:59 06:59 18:59 Intake Total 815 1180 Balance 815 1180 Weight (lbs) 177.355 kg 172.365 kg Intake: Oral 815 1180 Other: # Voids 4 8 Weight Source Bedscale Bedscale Active Medications: Current Medications Acetaminophen (Tylenol) 650 mg PO Q4HR PRN PRN Reason: Mild Pain Or Fever above 101 Stop: 09/12/18 03:55 Last Admin: 07/17/18 12:43 Dose: 650 mg Budesonide (Pulmicort) 0.5 mg HHN BIDRT [facility] Stop: 09/17/18 18:59 Last Admin: 07/26/18 06:57 Dose: 0.5 mg [place] Oil/[place] Balsam/Trypsin (Venelex) 1 appl TP DAILY [facility] Stop: 09/15/18 08:59 Last Admin: 07/24/18 08:25 Dose: 1 appl Dextrose (D50w) 50 ml IVP PRN PRN PRN Reason: BS below 70 & not tolerate po Stop: 09/22/18 12:55 Dextrose (Glutose 40%) 18.75 gm PO PRN PRN PRN Reason: BS below 70 & tolerate po Stop: 09/22/18 12:55 Diltiazem HCl (Cardizem) 20 mg IVP Q4H PRN PRN Reason: HR Greater than 130 per min Stop: 09/12/18 03:55 Last Admin: 07/14/18 16:22 Dose: 20 mg Diltiazem HCl (Cardizem) 60 mg PO Q6HR [facility] Stop: 09/12/18 17:59 Last Admin: 07/26/18 06:10 Dose: 60 mg Furosemide (Lasix) 40 mg PO DAILY [facility] Stop: 09/24/18 08:59 Last Admin: 07/26/18 08:45 Dose: 40 mg Glucagon (Glucagen) 1 mg IM PRN PRN PRN Reason: BS below 70&dextrose ineffecti Stop: 09/22/18 12:55 Guaifenesin (Robitussin) 100 mg PO Q4H PRN PRN Reason: Cough or Congestion Stop: 09/12/18 03:55 Ibuprofen (Motrin) 800 mg PO TID PRN PRN Reason: Pain (Moderate) Stop: 09/13/18 16:40 Last Admin: 07/26/18 08:54 Dose: 800 mg Insulin Human Lispro (Humalog Insulin Sliding Scale) 0 units SUBQ ACHS [facility]; Protocol Stop: 09/22/18 16:29 Last Admin: 07/26/18 06:31 Dose: Not Given Ipratropium [place] (Atrovent Neb 0.5mg/2.5ml) 0.5 mg HHN QIDRT [facility] Stop: 09/12/18 14:59 Last Admin: 07/26/18 10:34 Dose: 0.5 mg Levofloxacin (Levaquin) 250 mg PO DAILY [facility] Stop: 09/24/18 08:59 Last Admin: 07/26/18 08:45 Dose: 250 mg Losartan Potassium (Cozaar) 100 mg PO DAILY [facility] Stop: 09/21/18 08:59 Last Admin: 07/26/18 08:45 Dose: 100 mg Metoprolol Tartrate (Lopressor) 50 mg PO BID [facility] Stop: 09/20/18 16:59 Last Admin: 07/26/18 08:46 Dose: 50 mg Miscellaneous (Clinical Monitoring) 1 ea MC DAILY PRN PRN Reason: RENAL DOSING (MOTRIN) Stop: 09/15/18 13:51 Pantoprazole Sodium (Protonix) 40 mg PO DAILY [facility] Stop: 09/22/18 08:59 Last Admin: 07/26/18 08:44 Dose: 40 mg Potassium Chloride (Klor-Con) 20 meq PO DAILY [facility] Stop: 09/15/18 08:59 Last Admin: 07/26/18 08:45 Dose: 20 meq Tramadol HCl (Ultram) 50 mg PO Q8HR PRN PRN Reason: Severe Pain Stop: 09/21/18 10:39 Last Admin: 07/23/18 11:12 Dose: 50 mg Trimethoprim/Sulfamethoxazole (Bactrim Ds) 1 tab PO DAILY [facility] Stop: 09/24/18 08:59 Last Admin: 07/26/18 08:45 Dose: 1 tab General: alert, appears older HEENT: NC/AT, PERRLA Neck: Supple Lungs: CTAB Cardiovascular: RRR, Normal S1, Normal S2, without murmur Abdomen: soft, non-tender, non-distended, positive bowel sound Extremities: clear, excoriation, other (multiple open sores ble) Neurological: alert Internal Medicine Assmt/Plan - Assessment Assessment: - Assessment Assessment: Bacteremia Group G streptococcus- treated Multiple open sores with Providencia Rettgeri Acute urinary tract infection acute renal failure-stable, better morbidly obese anemia hypomagnesemia morbid obesity hypertension Acute diastolic congestive heart failure asthma chronic obstructive pulmonary disease type 2 diabetes. - Plan Plan: - Plan Plan: AM labs continue with wound care CM to arrange dc planning to SNF , refused to go home continue on abx wound care pain mgmt continue current plan of care had long discussion w pt, answered all questions again, refused dc Nutritional Asmnt/Malnutr-PDOC - Dietary Evaluation Malnutrition Findings (Please click <Entered> for more info): Nutritional Asmnt/Malnutrition Start: 07/17/18 16: 49 Text: Status: Complete Freq: Protocol: Document 07/17/18 16:49 LCLUCIANG (Rec: 07/17/18 17:20 JEDG [email or web address]) Nutritional Asmnt/Malnutrition Patient General Information Nutritional Screening Moderate Risk Consult Diagnosis SOB, chest pain Pertinent Medical Hx/Surgical Hx HTN Subjective Information Consult received for BLE venous insufficiency ulcer. Pt seen sitting on chair, awake and alert. Pt asked snacks betoween meals and food preference provided to RD. Discussed with pt about healthy eating. Per EMR, PO intake 75-100%. Current Diet Order/ Nutrition Support cardiac, fluid 1500ml Pertinent Medications lasix, protonix, kcl, piperacillin, vancomycin Pertinent Labs 07/17 BUN 38, Cr 1.6, Glucose 125, Ca 8.4 07/16 Na 132, Na 42, Cr 1.9, Glucose 151, Ca 8.4 Nutritional Hx/Data Height 1.85 m Height (Calculated Centimeters) 185.4 Current Weight (lbs) 180.983 kg Weight (Calculated Kilograms) 181.0 Weight (Calculated Grams) 739741.4 [place] Body Weight 184 Body Mass Index (BMI) 52.6 Weight Status Morbidly Obese GI Symptoms GI Symptoms None Last BM 07/17 x 2 Difficult in: None Usual diet at home Pt stated he has been following fluid restriction about 1300-1400ml at home. Pt gaind wt d/t life change, eating fast food and longer sitting hours. Pt is ready to make change, increase physical activity and eat healthy food . Skin Integrity/Comment: open wound to right leg, edema to lower extremities. Current %PO Good (75-100%) Estimated Nutritional Goals BEE in Kcals: Adj wt of IBW Calories/Kcals/Kg 20-25 Kcals Calculated 6625-8097 Protein: Adj wt of IBW Protein g/k.8 Protein Calculated 86 Fluid: ml 1500ml per MD Nutritional Problem 1. Problem Problem obese Etiology excessive energy intake and inadequte physical activity Signs/Symptoms: BMI 52.6 Malnutrition Alert Is there a minimum of two criteria No selected? Query Text:Check all the applicable criteria. A minimum of two criteria are recommended for diagnosis of either severe or non-severe malnutrition. Malnutrition Related to Morbid Obesity Malnutrition related to morbid obesity No Intervention/Recommendation Comments 1. Continue with cardiac diet wtih fluid restriction as ordered. Recommend healthy snack choices. discussed with pt about healthy eating and life style. 2. Add Eddie BID for wound healing. 3. Monitor PO intake, wt, labs and skin integrity 4. F/U as moderate risk in 3-5 days Expected Outcomes/Goals Expected Outcomes/Goals 1. PO intake to meet at least 75% of nutritional needs. 2. Wt stability, skin to remain intact, labs to approach WNL.
--- NOTE | 2018-07-26 12:36 | General Progress Note ---
Subjective - Review of Systems Service Date: 07/26/18 Subjective: Patient has less shortness of breath still complaining of swelling both lower extremities and open wound on the right leg Patient feels better patient complained of burning in both the leg Blood pressure and control start patient on Lopressor 50 mg twice a day losartan 100 mg daily Objective - Results Result Diagrams: 07/26/18 09:00 07/26/18 09:00 Recent Labs: Laboratory Last Values WBC 13.4 Th/cmm (4.8-10.8) H 07/26/18 09:00 RBC 5.02 Mil/cmm (4.30-5.70) 07/26/18 09:00 Hgb 12.3 gm/dL (12-16) 07/26/18 09:00 Hct 38.5 % (41.0-60) L 07/26/18 09:00 MCV 76.8 fl (80-99) L 07/26/18 09:00 MCH 24.5 pg (26.0-30.0) L 07/26/18 09:00 MCHC Differential 31.9 pg (28.0-36.0) 07/26/18 09:00 RDW 16.3 % (11.5-20.0) 07/26/18 09:00 Plt Count 325 Th/cmm (150-400) 07/26/18 09:00 MPV 7.9 fl 07/26/18 09:00 Add Manual Diff YES 07/20/18 06:40 Neutrophils % 79.4 % (40.0-80.0) 07/26/18 09:00 Band Neutrophils % 2 % (0-10) 07/18/18 04:50 Lymphocytes % 12.2 % (20.0-50.0) L 07/26/18 09:00 Monocytes % 6.8 % (2.0-10.0) 07/26/18 09:00 Eosinophils % 1.0 % (0.0-5.0) 07/26/18 09:00 Basophils % 0.6 % (0.0-2.0) 07/26/18 09:00 Neutrophils (Manual) 79 % (40-80) 07/20/18 06:40 Lymphocytes 12 % (20-50) L 07/20/18 06:40 Monocytes 9 % (2-10) 07/20/18 06:40 Eosinophils 0 % (0-5) 07/15/18 06:35 Basophils 0 % (0-3) 07/16/18 04:40 Platelet Estimate ADEQUATE (NORMAL) 07/20/18 06:40 Sodium 139 mEq/L (136-145) 07/26/18 09:00 Potassium 3.8 mEq/L (3.5-5.1) 07/26/18 09:00 Chloride 105 mEq/L (98-107) 07/26/18 09:00 Carbon Dioxide 23.2 mEq/L (21.0-31.0) 07/26/18 09:00 Anion Gap 14.6 (7.0-16.0) 07/26/18 09:00 BUN 29 mg/dL (7-25) H 07/26/18 09:00 Creatinine 1.3 mg/dL (0.7-1.3) 07/26/18 09:00 Est GFR ( Amer) > 60.0 ml/min (>90) 07/26/18 09:00 Est GFR (Non-Af Amer) > 60.0 ml/min 07/26/18 09:00 BUN/Creatinine Ratio 22.3 07/26/18 09:00 Glucose 142 mg/dL (70-105) H 07/26/18 09:00 POC Glucose 81 MG/DL (70 - 105) 07/26/18 07:28 Whole Bld Lactic Acid 1.56 mmol/L (0.60-1.99) 07/15/18 15:00 Calcium 8.6 mg/dL (8.6-10.3) 07/26/18 09:00 Magnesium 2.3 mg/dL (1.9-2.7) 07/23/18 04:40 Total Bilirubin 0.8 mg/dL (0.3-1.0) 07/14/18 00:20 AST 53 U/L (13-39) H 07/14/18 00:20 ALT 62 U/L (7-52) H 07/14/18 00:20 Alkaline Phosphatase 92 U/L (34-104) 07/14/18 00:20 Troponin I 0.12 ng/mL (0.01-0.05) H* D 07/15/18 06:35 B-Natriuretic Peptide 537.0 pg/mL (5.0-100.0) H 07/17/18 07:00 Total Protein 6.4 gm/dL (6.0-8.3) 07/14/18 00:20 Albumin 3.5 gm/dL (4.2-5.5) L 07/14/18 00:20 Globulin 2.9 gm/dL 07/14/18 00:20 Albumin/Globulin Ratio 1.2 (1.0-1.8) 07/14/18 00:20 Triglycerides 48 mg/dL (<150) 07/14/18 00:20 Cholesterol 61 mg/dL (<200) 07/14/18 00:20 LDL Cholesterol Direct 36 mg/dL (75-193) L 07/14/18 00:20 HDL Cholesterol 22 mg/dL (23-92) L 07/14/18 00:20 Vancomycin Trough 14.8 ug/mL (5-10) H 07/26/18 09:00 - Physical Exam Vitals and I&O: Vital Signs Temp 98.1 F 07/26/18 11:56 Pulse 67 07/26/18 11:56 Resp 20 07/26/18 11:56 BP 136/85 07/26/18 11:56 Pulse Ox 97 07/26/18 11:56 Intake & Output 07/25/18 07/26/18 07/26/18 18:59 06:59 18:59 Intake Total 815 1180 Balance 815 1180 Weight (lbs) 177.355 kg 172.365 kg Intake: Oral 815 1180 Other: # Voids 4 8 Weight Source Bedscale Bedscale Active Medications: Current Medications Acetaminophen (Tylenol) 650 mg PO Q4HR PRN PRN Reason: Mild Pain Or Fever above 101 Stop: 09/12/18 03:55 Last Admin: 07/17/18 12:43 Dose: 650 mg Budesonide (Pulmicort) 0.5 mg HHN BIDRT [facility] Stop: 09/17/18 18:59 Last Admin: 07/26/18 06:57 Dose: 0.5 mg [place] Oil/[place] Balsam/Trypsin (Venelex) 1 appl TP DAILY [facility] Stop: 09/15/18 08:59 Last Admin: 07/24/18 08:25 Dose: 1 appl Dextrose (D50w) 50 ml IVP PRN PRN PRN Reason: BS below 70 & not tolerate po Stop: 09/22/18 12:55 Dextrose (Glutose 40%) 18.75 gm PO PRN PRN PRN Reason: BS below 70 & tolerate po Stop: 09/22/18 12:55 Diltiazem HCl (Cardizem) 20 mg IVP Q4H PRN PRN Reason: HR Greater than 130 per min Stop: 09/12/18 03:55 Last Admin: 07/14/18 16:22 Dose: 20 mg Diltiazem HCl (Cardizem) 60 mg PO Q6HR [facility] Stop: 09/12/18 17:59 Last Admin: 07/26/18 06:10 Dose: 60 mg Furosemide (Lasix) 40 mg PO DAILY [facility] Stop: 09/24/18 08:59 Last Admin: 07/26/18 08:45 Dose: 40 mg Glucagon (Glucagen) 1 mg IM PRN PRN PRN Reason: BS below 70&dextrose ineffecti Stop: 09/22/18 12:55 Guaifenesin (Robitussin) 100 mg PO Q4H PRN PRN Reason: Cough or Congestion Stop: 09/12/18 03:55 Ibuprofen (Motrin) 800 mg PO TID PRN PRN Reason: Pain (Moderate) Stop: 09/13/18 16:40 Last Admin: 07/26/18 08:54 Dose: 800 mg Insulin Human Lispro (Humalog Insulin Sliding Scale) 0 units SUBQ ACHS [facility]; Protocol Stop: 09/22/18 16:29 Last Admin: 07/26/18 06:31 Dose: Not Given Ipratropium [place] (Atrovent Neb 0.5mg/2.5ml) 0.5 mg HHN QIDRT [facility] Stop: 09/12/18 14:59 Last Admin: 07/26/18 10:34 Dose: 0.5 mg Levofloxacin (Levaquin) 250 mg PO DAILY [facility] Stop: 09/24/18 08:59 Last Admin: 07/26/18 08:45 Dose: 250 mg Losartan Potassium (Cozaar) 100 mg PO DAILY [facility] Stop: 09/21/18 08:59 Last Admin: 07/26/18 08:45 Dose: 100 mg Metoprolol Tartrate (Lopressor) 50 mg PO BID [facility] Stop: 09/20/18 16:59 Last Admin: 07/26/18 08:46 Dose: 50 mg Miscellaneous (Clinical Monitoring) 1 ea MC DAILY PRN PRN Reason: RENAL DOSING (MOTRIN) Stop: 09/15/18 13:51 Pantoprazole Sodium (Protonix) 40 mg PO DAILY [facility] Stop: 09/22/18 08:59 Last Admin: 07/26/18 08:44 Dose: 40 mg Potassium Chloride (Klor-Con) 20 meq PO DAILY [facility] Stop: 09/15/18 08:59 Last Admin: 07/26/18 08:45 Dose: 20 meq Tramadol HCl (Ultram) 50 mg PO Q8HR PRN PRN Reason: Severe Pain Stop: 09/21/18 10:39 Last Admin: 07/23/18 11:12 Dose: 50 mg Trimethoprim/Sulfamethoxazole (Bactrim Ds) 1 tab PO DAILY [facility] Stop: 09/24/18 08:59 Last Admin: 07/26/18 08:45 Dose: 1 tab General: Alert, Mild distress HEENT: Mucous membr. moist/pink Neck: Supple, JVD, +2 carotid pulse wo bruit (10 cm upper sternal angle) Cardiovascular: Regular rate, Systolic murmurs, Other (uncontrolled atrial fibrillation) Abdomen: Bowel sounds, Soft, Obese Neurological: Normal gait, Strength at 5/5 X4 ext, Normal tone, Cranial nerves 3 -12 NL, Reflexes 2+ Skin: Breakdown (both legs) Assessment/Plan - Assessment Assessment: Right lower lobe pneumonia Congestive heart failure diastolic dysfunction and acute Cellulitis right leg Pleural effusion C kidney disease stage III Lactic acidosis Uncontrolled atrial fibrillation Hypertension Protein calorie malnutrition Morbid obesity Lactic acidosis IV antibiotics IV Lasix Echocardiogram WITH mitral regurgitation mild tricuspid regurgitation aortic regurgitation ejection fraction normal - Plan Plan: Start IV Lasix IV antibiotics fluid restriction echocardiogram Patient to have Zaroxolyn Discharge planning Nutritional Asmnt/Malnutr-PDOC - Dietary Evaluation Malnutrition Findings (Please click <Entered> for more info): Nutritional Asmnt/Malnutrition Start: 07/17/18 16: 49 Text: Status: Complete Freq: Protocol: Document 07/17/18 16:49 LCLUCIANG (Rec: 07/17/18 17:20 JEDG [email or web address]) Nutritional Asmnt/Malnutrition Patient General Information Nutritional Screening Moderate Risk Consult Diagnosis SOB, chest pain Pertinent Medical Hx/Surgical Hx HTN Subjective Information Consult received for BLE venous insufficiency ulcer. Pt seen sitting on chair, awake and alert. Pt asked snacks betoween meals and food preference provided to RD. Discussed with pt about healthy eating. Per EMR, PO intake 75-100%. Current Diet Order/ Nutrition Support cardiac, fluid 1500ml Pertinent Medications lasix, protonix, kcl, piperacillin, vancomycin Pertinent Labs 07/17 BUN 38, Cr 1.6, Glucose 125, Ca 8.4 07/16 Na 132, Na 42, Cr 1.9, Glucose 151, Ca 8.4 Nutritional Hx/Data Height 1.85 m Height (Calculated Centimeters) 185.4 Current Weight (lbs) 180.983 kg Weight (Calculated Kilograms) 181.0 Weight (Calculated Grams) 646572.4 [place] Body Weight 184 Body Mass Index (BMI) 52.6 Weight Status Morbidly Obese GI Symptoms GI Symptoms None Last BM 07/17 x 2 Difficult in: None Usual diet at home Pt stated he has been following fluid restriction about 1300-1400ml at home. Pt gaind wt d/t life change, eating fast food and longer sitting hours. Pt is ready to make change, increase physical activity and eat healthy food . Skin Integrity/Comment: open wound to right leg, edema to lower extremities. Current %PO Good (75-100%) Estimated Nutritional Goals BEE in Kcals: Adj wt of IBW Calories/Kcals/Kg 20-25 Kcals Calculated 4947-5188 Protein: Adj wt of IBW Protein g/k.8 Protein Calculated 86 Fluid: ml 1500ml per MD Nutritional Problem 1. Problem Problem obese Etiology excessive energy intake and inadequte physical activity Signs/Symptoms: BMI 52.6 Malnutrition Alert Is there a minimum of two criteria No selected? Query Text:Check all the applicable criteria. A minimum of two criteria are recommended for diagnosis of either severe or non-severe malnutrition. Malnutrition Related to Morbid Obesity Malnutrition related to morbid obesity No Intervention/Recommendation Comments 1. Continue with cardiac diet wtih fluid restriction as ordered. Recommend healthy snack choices. discussed with pt about healthy eating and life style. 2. Add Eddie BID for wound healing. 3. Monitor PO intake, wt, labs and skin integrity 4. F/U as moderate risk in 3-5 days Expected Outcomes/Goals Expected Outcomes/Goals 1. PO intake to meet at least 75% of nutritional needs. 2. Wt stability, skin to remain intact, labs to approach WNL.
[2018-07-26] MEDS: Venelex 60gm Tube TP SCH (18:56)
[2018-07-27] MEDS: Diltiazem 30 mg Tab PO SCH ×4 (00:50→17:28)
[2018-07-27] MEDS: INSULIN LISPRO SLIDING SCALE 100 UNITS/ML UNIT SUBQ SCH ×3 (06:32→16:40)
[2018-07-27] MEDS: Ipratropium Neb 0.5 mg/2.5 mL UD HHN SCH ×3 (07:11→15:02)
[2018-07-27] MEDS: Budesonide 0.5 Mg/2 mL Ud HHN SCH (07:11)
[2018-07-27] MEDS: Pantoprazole 40 mg/Packet PO SCH (08:32)
[2018-07-27] MEDS: Sulfamethoxazole/TMP 800/160mg Tab PO SCH (08:33)
[2018-07-27] MEDS: Potassium Chloride 20 mEq ER Tab PO SCH (08:34)
[2018-07-27] MEDS: Venelex 60gm Tube TP SCH (08:40)
[2018-07-27] MEDS ORDERED: Probiotic Screen MC PRN (09:02)
--- NOTE | 2018-07-27 14:09 | General Progress Note ---
Subjective - Review of Systems Service Date: 07/27/18 Subjective: Patient has less shortness of breath still complaining of swelling both lower extremities and open wound on the right leg Patient feels better patient complained of burning in both the leg Blood pressure and control start patient on Lopressor 50 mg twice a day losartan 100 mg daily Objective - Results Result Diagrams: 07/26/18 09:00 07/26/18 09:00 Recent Labs: Laboratory Last Values WBC 13.4 Th/cmm (4.8-10.8) H 07/26/18 09:00 RBC 5.02 Mil/cmm (4.30-5.70) 07/26/18 09:00 Hgb 12.3 gm/dL (12-16) 07/26/18 09:00 Hct 38.5 % (41.0-60) L 07/26/18 09:00 MCV 76.8 fl (80-99) L 07/26/18 09:00 MCH 24.5 pg (26.0-30.0) L 07/26/18 09:00 MCHC Differential 31.9 pg (28.0-36.0) 07/26/18 09:00 RDW 16.3 % (11.5-20.0) 07/26/18 09:00 Plt Count 325 Th/cmm (150-400) 07/26/18 09:00 MPV 7.9 fl 07/26/18 09:00 Add Manual Diff YES 07/20/18 06:40 Neutrophils % 79.4 % (40.0-80.0) 07/26/18 09:00 Band Neutrophils % 2 % (0-10) 07/18/18 04:50 Lymphocytes % 12.2 % (20.0-50.0) L 07/26/18 09:00 Monocytes % 6.8 % (2.0-10.0) 07/26/18 09:00 Eosinophils % 1.0 % (0.0-5.0) 07/26/18 09:00 Basophils % 0.6 % (0.0-2.0) 07/26/18 09:00 Neutrophils (Manual) 79 % (40-80) 07/20/18 06:40 Lymphocytes 12 % (20-50) L 07/20/18 06:40 Monocytes 9 % (2-10) 07/20/18 06:40 Eosinophils 0 % (0-5) 07/15/18 06:35 Basophils 0 % (0-3) 07/16/18 04:40 Platelet Estimate ADEQUATE (NORMAL) 07/20/18 06:40 Sodium 139 mEq/L (136-145) 07/26/18 09:00 Potassium 3.8 mEq/L (3.5-5.1) 07/26/18 09:00 Chloride 105 mEq/L (98-107) 07/26/18 09:00 Carbon Dioxide 23.2 mEq/L (21.0-31.0) 07/26/18 09:00 Anion Gap 14.6 (7.0-16.0) 07/26/18 09:00 BUN 29 mg/dL (7-25) H 07/26/18 09:00 Creatinine 1.3 mg/dL (0.7-1.3) 07/26/18 09:00 Est GFR ( Amer) > 60.0 ml/min (>90) 07/26/18 09:00 Est GFR (Non-Af Amer) > 60.0 ml/min 07/26/18 09:00 BUN/Creatinine Ratio 22.3 07/26/18 09:00 Glucose 142 mg/dL (70-105) H 07/26/18 09:00 POC Glucose 100 MG/DL (70 - 105) 07/27/18 11:05 Whole Bld Lactic Acid 1.56 mmol/L (0.60-1.99) 07/15/18 15:00 Calcium 8.6 mg/dL (8.6-10.3) 07/26/18 09:00 Magnesium 2.3 mg/dL (1.9-2.7) 07/23/18 04:40 Total Bilirubin 0.8 mg/dL (0.3-1.0) 07/14/18 00:20 AST 53 U/L (13-39) H 07/14/18 00:20 ALT 62 U/L (7-52) H 07/14/18 00:20 Alkaline Phosphatase 92 U/L (34-104) 07/14/18 00:20 Troponin I 0.12 ng/mL (0.01-0.05) H* D 07/15/18 06:35 B-Natriuretic Peptide 537.0 pg/mL (5.0-100.0) H 07/17/18 07:00 Total Protein 6.4 gm/dL (6.0-8.3) 07/14/18 00:20 Albumin 3.5 gm/dL (4.2-5.5) L 07/14/18 00:20 Globulin 2.9 gm/dL 07/14/18 00:20 Albumin/Globulin Ratio 1.2 (1.0-1.8) 07/14/18 00:20 Triglycerides 48 mg/dL (<150) 07/14/18 00:20 Cholesterol 61 mg/dL (<200) 07/14/18 00:20 LDL Cholesterol Direct 36 mg/dL (75-193) L 07/14/18 00:20 HDL Cholesterol 22 mg/dL (23-92) L 07/14/18 00:20 Vancomycin Trough 14.8 ug/mL (5-10) H 07/26/18 09:00 - Physical Exam Vitals and I&O: Vital Signs Temp 96.1 F 07/27/18 11:27 Pulse 91 07/27/18 12:26 Resp 18 07/27/18 12:07 BP 113/73 07/27/18 11:27 Pulse Ox 97 07/27/18 12:07 Intake & Output 07/26/18 07/27/18 07/27/18 18:59 06:59 18:59 Intake Total 840 Output Total 750 Balance 840 -750 Weight (lbs) 172.365 kg 172.365 kg Intake: Oral 840 Output: Urine 750 Other: # Voids 4 Weight Source Bedscale Bedscale Active Medications: Current Medications Acetaminophen (Tylenol) 650 mg PO Q4HR PRN PRN Reason: Mild Pain Or Fever above 101 Stop: 09/12/18 03:55 Last Admin: 07/17/18 12:43 Dose: 650 mg Budesonide (Pulmicort) 0.5 mg HHN BIDRT [facility] Stop: 09/17/18 18:59 Last Admin: 07/27/18 07:11 Dose: 0.5 mg [place] Oil/[place] Balsam/Trypsin (Venelex) 1 appl TP DAILY [facility] Stop: 09/15/18 08:59 Last Admin: 07/27/18 08:40 Dose: 1 appl Dextrose (D50w) 50 ml IVP PRN PRN PRN Reason: BS below 70 & not tolerate po Stop: 09/22/18 12:55 Dextrose (Glutose 40%) 18.75 gm PO PRN PRN PRN Reason: BS below 70 & tolerate po Stop: 09/22/18 12:55 Diltiazem HCl (Cardizem) 20 mg IVP Q4H PRN PRN Reason: HR Greater than 130 per min Stop: 09/12/18 03:55 Last Admin: 07/14/18 16:22 Dose: 20 mg Diltiazem HCl (Cardizem) 60 mg PO Q6HR [facility] Stop: 09/12/18 17:59 Last Admin: 07/27/18 12:26 Dose: 60 mg Furosemide (Lasix) 40 mg PO DAILY [facility] Stop: 09/24/18 08:59 Last Admin: 07/27/18 08:35 Dose: 40 mg Glucagon (Glucagen) 1 mg IM PRN PRN PRN Reason: BS below 70&dextrose ineffecti Stop: 09/22/18 12:55 Guaifenesin (Robitussin) 100 mg PO Q4H PRN PRN Reason: Cough or Congestion Stop: 09/12/18 03:55 Ibuprofen (Motrin) 800 mg PO TID PRN PRN Reason: Pain (Moderate) Stop: 09/13/18 16:40 Last Admin: 07/27/18 08:34 Dose: 800 mg Insulin Human Lispro (Humalog Insulin Sliding Scale) 0 units SUBQ ACHS [facility]; Protocol Stop: 09/22/18 16:29 Last Admin: 07/27/18 11:11 Dose: Not Given Ipratropium [place] (Atrovent Neb 0.5mg/2.5ml) 0.5 mg HHN QIDRT [facility] Stop: 09/12/18 14:59 Last Admin: 07/27/18 12:07 Dose: 0.5 mg Lactobacillus Rhamnosus (Culturelle 15b) 1 each PO DAILY [facility] Stop: 09/26/18 08:59 Levofloxacin (Levaquin) 250 mg PO DAILY [facility] Stop: 09/24/18 08:59 Last Admin: 07/27/18 08:33 Dose: 250 mg Losartan Potassium (Cozaar) 100 mg PO DAILY [facility] Stop: 09/21/18 08:59 Last Admin: 07/27/18 08:34 Dose: 100 mg Metoprolol Tartrate (Lopressor) 50 mg PO BID [facility] Stop: 09/20/18 16:59 Last Admin: 07/27/18 08:35 Dose: 50 mg Miscellaneous (Clinical Monitoring) 1 ea MC DAILY PRN PRN Reason: RENAL DOSING (MOTRIN) Stop: 09/15/18 13:51 Miscellaneous (Probiotic Screen) 1 ea MC PRN PRN PRN Reason: PROTOCOL Stop: 09/25/18 09:01 Pantoprazole Sodium (Protonix) 40 mg PO DAILY [facility] Stop: 09/22/18 08:59 Last Admin: 07/27/18 08:32 Dose: 40 mg Potassium Chloride (Klor-Con) 20 meq PO DAILY [facility] Stop: 09/15/18 08:59 Last Admin: 07/27/18 08:34 Dose: 20 meq Tramadol HCl (Ultram) 50 mg PO Q8HR PRN PRN Reason: Severe Pain Stop: 09/21/18 10:39 Last Admin: 07/23/18 11:12 Dose: 50 mg Trimethoprim/Sulfamethoxazole (Bactrim Ds) 1 tab PO DAILY [facility] Stop: 09/24/18 08:59 Last Admin: 07/27/18 08:33 Dose: 1 tab General: Alert, Mild distress HEENT: Mucous membr. moist/pink Neck: Supple, JVD, +2 carotid pulse wo bruit (10 cm upper sternal angle) Cardiovascular: Regular rate, Systolic murmurs, Other (uncontrolled atrial fibrillation) Abdomen: Bowel sounds, Soft, Obese Neurological: Normal gait, Strength at 5/5 X4 ext, Normal tone, Cranial nerves 3 -12 NL, Reflexes 2+ Skin: Breakdown (both legs) Assessment/Plan - Assessment Assessment: Right lower lobe pneumonia Congestive heart failure diastolic dysfunction and acute Cellulitis right leg Pleural effusion C kidney disease stage III Lactic acidosis Uncontrolled atrial fibrillation Hypertension Protein calorie malnutrition Morbid obesity Lactic acidosis IV antibiotics IV Lasix Echocardiogram WITH mitral regurgitation mild tricuspid regurgitation aortic regurgitation ejection fraction normal - Plan Plan: Start IV Lasix IV antibiotics fluid restriction echocardiogram Patient to have Zaroxolyn Discharge planning Patient to discharged today with home health Nutritional Asmnt/Malnutr-PDOC - Dietary Evaluation Malnutrition Findings (Please click <Entered> for more info): Nutritional Asmnt/Malnutrition Start: 07/17/18 16: 49 Text: Status: Complete Freq: Protocol: Document 07/17/18 16:49 LCHENG (Rec: 07/17/18 17:20 LCLUCIANG [email or web address]) Nutritional Asmnt/Malnutrition Patient General Information Nutritional Screening Moderate Risk Consult Diagnosis SOB, chest pain Pertinent Medical Hx/Surgical Hx HTN Subjective Information Consult received for BLE venous insufficiency ulcer. Pt seen sitting on chair, awake and alert. Pt asked snacks betoween meals and food preference provided to RD. Discussed with pt about healthy eating. Per EMR, PO intake 75-100%. Current Diet Order/ Nutrition Support cardiac, fluid 1500ml Pertinent Medications lasix, protonix, kcl, piperacillin, vancomycin Pertinent Labs 07/17 BUN 38, Cr 1.6, Glucose 125, Ca 8.4 07/16 Na 132, Na 42, Cr 1.9, Glucose 151, Ca 8.4 Nutritional Hx/Data Height 1.85 m Height (Calculated Centimeters) 185.4 Current Weight (lbs) 180.983 kg Weight (Calculated Kilograms) 181.0 Weight (Calculated Grams) 326936.4 [place] Body Weight 184 Body Mass Index (BMI) 52.6 Weight Status Morbidly Obese GI Symptoms GI Symptoms None Last BM 07/17 x 2 Difficult in: None Usual diet at home Pt stated he has been following fluid restriction about 1300-1400ml at home. Pt gaind wt d/t life change, eating fast food and longer sitting hours. Pt is ready to make change, increase physical activity and eat healthy food . Skin Integrity/Comment: open wound to right leg, edema to lower extremities. Current %PO Good (75-100%) Estimated Nutritional Goals BEE in Kcals: Adj wt of IBW Calories/Kcals/Kg 20-25 Kcals Calculated 4708-5670 Protein: Adj wt of IBW Protein g/k.8 Protein Calculated 86 Fluid: ml 1500ml per MD Nutritional Problem 1. Problem Problem obese Etiology excessive energy intake and inadequte physical activity Signs/Symptoms: BMI 52.6 Malnutrition Alert Is there a minimum of two criteria No selected? Query Text:Check all the applicable criteria. A minimum of two criteria are recommended for diagnosis of either severe or non-severe malnutrition. Malnutrition Related to Morbid Obesity Malnutrition related to morbid obesity No Intervention/Recommendation Comments 1. Continue with cardiac diet wtih fluid restriction as ordered. Recommend healthy snack choices. discussed with pt about healthy eating and life style. 2. Add Eddie BID for wound healing. 3. Monitor PO intake, wt, labs and skin integrity 4. F/U as moderate risk in 3-5 days Expected Outcomes/Goals Expected Outcomes/Goals 1. PO intake to meet at least 75% of nutritional needs. 2. Wt stability, skin to remain intact, labs to approach WNL.
--- NOTE | 2018-07-27 20:27 | Discharge Summary ---
DATE OF DISCHARGE: 07/27/2018 CHIEF COMPLAINT: Leg pain and swelling, shortness of breath. FINAL DIAGNOSES: 1. Bilateral lower extremity edema with right lower extremity cellulitis. 2. History of pneumonia. 3. [id number] congestive heart failure, which is stable/compensated. 4. Renal insufficiency. 5. Morbid obesity. 6. Hypertension. 7. Paroxysmal atrial fibrillation. 8. Diabetes. 9. History of bacteremia. 10. Multiple venous stasis changes with open sores. 11. Anemia. 12. Electrolyte abnormalities. 13. Chronic obstructive pulmonary disease. 14. History of asthma. HISTORY: This is an unfortunate 52-year-old male with multiple problems, admitted through the ER apparently today with bilateral leg swelling, which has been chronic with open sores. Apparently, the patient was admitted at [facility] about 2 months prior and stayed there for 14 days of IV antibiotics. The patient then discharged to his home and his condition reoccurred and presented to the ER. PHYSICAL EXAMINATION: VITAL SIGNS: Blood pressure 139/73, respirations 20, pulse 91, temperature 96.1. GENERAL: Elderly male, morbidly obese. NECK: Supple. No mass. LUNGS: Equal breath sounds. A few rhonchi. HEART: Regular rate and rhythm with systolic ejection murmur. ABDOMEN: Soft, globular. EXTREMITIES: 2-3+ edema, open sores on the bowel lower extremities, more so on the right lower extremity; please see the picture. NEUROLOGIC: The patient is able to ambulate. HOSPITAL COURSE: The patient is admitted to the medical floor, continued on IV antibiotics and IV diuretics. The patient was placed on vancomycin and Zosyn initially. The patient was seen by Dr. Shetty for Pulmonary and Dr. Patsy De Oliveira for Cardiology. The patient with diastolic heart failure. The patient's renal function has remained stable. WBC remained stable. The patient was also told that he has diabetes but the patient seems to be in denial and does not want to accept the diagnosis nor congestive heart failure. The patient is also refusing to be discharged to home or a skilled nursing. The patient is adamant that he is not accepting any placement. I did tell the patient all the sores took months to years to develop, may also take about that longer period of time before they would heal completely. The patient is to be referred to his primary care doctor upon discharge, including Cardiology, Vascular, Wound Care ____, Renal, Endocrinology. The patient has been voicing to go against medical advice. Apparently, placement is under work. CONDITION ON DISCHARGE: Fair. OVERALL PROGNOSIS: Poor. The patient did tell the patient with him denying diabetes and not taking care of himself, he may lose his lower extremity. DISCHARGE INSTRUCTIONS: The patient did refuse placement at home, hence a chcf is being worked up. JOB# [id number]
[2018-07-28] MEDS ORDERED: Lactobacillus Rhamnosus GG 15 Billion CFU CAP.SPRINK PO SCH (09:00)
--- NOTE | 2018-07-28 11:30 | Progress Notes ---
DATE: 07/27/2018 SUBJECTIVE: The patient appears to be doing okay. No distress. PHYSICAL EXAMINATION: VITAL SIGNS: Temperature 96.4, pulse 84, respiration 18, blood pressure 130/73, saturation 95%. CHEST: Good breath sounds. No wheezing, no crackles. HEART: Regular rate and rhythm. ABDOMEN: Soft. EXTREMITIES: There is 2+ edema with erythema. IMPRESSION: 1. Respiratory failure. 2. Peripheral edema. 3. Pulmonary edema. 4. Weakness. 5. Obesity. 6. Cellulitis. PLAN: 1. Continue supportive care. 2. Antibiotics. 3. Diuresis. 4. Discharge planning. JOB# [id number]
== END 2018-07-27 18:59 | DRG 720 ==
LOC: ER 23:52 → TELE 07-14 12:48 → MSI 07-20 10:56
PROVIDERS: ADMIT Internal Medicine; ATTEND Internal Medicine
PROC: 5A09357 Assistance with Respiratory Ventilation, Less than 24 Consecutive Hours, Continuous Positive Airway Pressure (ICD-10-PCS; principal; 2018-07-14)
PROC: 5A09357 Assistance with Respiratory Ventilation, Less than 24 Consecutive Hours, Continuous Positive Airway Pressure (ICD-10-PCS; 2018-07-15)
DX: A41.9 Sepsis, unspecified organism (principal); J96.90 Respiratory failure, unspecified, unspecified whether with hypoxia or hypercapnia; I50.33 Acute on chronic diastolic (congestive) heart failure; J18.1 Lobar pneumonia, unspecified organism; E66.01 Morbid (severe) obesity due to excess calories; I08.1 Rheumatic disorders of both mitral and tricuspid valves; I13.0 Hypertensive heart and chronic kidney disease with heart failure and stage 1 through stage 4 chronic kidney disease, or unspecified chronic kidney disease; N18.3 Chronic kidney disease, stage 3 (moderate); E83.42 Hypomagnesemia; N39.0 Urinary tract infection, site not specified; F17.210 Nicotine dependence, cigarettes, uncomplicated; Z68.43 Body mass index [BMI] 50.0-59.9, adult; L03.115 Cellulitis of right lower limb; G47.33 Obstructive sleep apnea (adult) (pediatric); J98.01 Acute bronchospasm; I48.0 Paroxysmal atrial fibrillation
CPT/HCPCS: 36415-UA; 71045-TC; 74019-TC; 80048-TC; 80053-TC; 80061-TC; 80202-TC; 82948-90; 83036-90; 83605; 83735-TC; 83880-TC; 84484-TC; 85007-TC; 85025-TC; 87070-90; 87075-90; 90779; 93005; 93880-TC; 93970-TC-50; 94640; 94660; 94760; 96374; 96376; 96379; C9113; J1650; J1940; J2270; J2543; J2920; J3370; J7040; P9047; Z7610